=== PATIENT | female | born 1950 | race Caucasian/White ===

== ENCOUNTER 2019-03-22 12:23 | Emergency (ER) | payer OTHER ==
--- OUTSIDE RECORDS SUMMARY | 2019-03-22 12:26 | XMS REPORT | Clinical Summary ---
:1950 Author Organization [facility] Address [address] [place] [address] Care Team Providers Name Role Phone Juan C Jaimes MD Primary Care Provider Allergies Active Allergy Reactions Severity Noted Date Comments Codeine GI Intolerance 01/24/2016 Vomiting Ixmehbc-Tda-Ci-Acetaminophen GI Intolerance 12/31/2015 Meperidine Other (See Comments) 12/31/2015 Pentazocine Other (See Comments) 01/24/2016 Hallucinations Pentazocine Lactate Other (See Comments) 12/31/2015 Hallucinations Medications Medication Sig Dispensed Refills Start Date End Date Status metoprolol Take 50 mg by 0 Active succinate XL mouth daily. (TOPROL-XL) 100 MG 24 hr tablet apixaban (ELIQUIS) Take 2.5 mg by 0 Active 5 mg tablet mouth 2 (two) times a day. levothyroxine Take 125 mcg 0 Active (SYNTHROID, by mouth LEVOTHROID) 125 MCG daily. tablet montelukast Take 10 mg by 3 06/24/2017 Active (SINGULAIR) 10 mg mouth daily tablet before breakfast. sertraline (ZOLOFT) Take 50 mg by 0 Active 50 MG tablet mouth daily. irbesartan (AVAPRO) Take 150 mg by 0 Active 150 MG tablet mouth daily. furosemide (LASIX) TAKE 2 TABLETS 180 tablet 1 10/23/2018 Active 20 mg tablet BY MOUTH EVERY DAY allopurinol TAKE 1 TABLET 0 12/03/2018 Active (ZYLOPRIM) 100 MG BY MOUTH TWICE tablet A DAY. STOP ULORIC diltiazem CD Take 360 mg by 1 10/12/2018 Active (CardIZEM CD) 360 mouth daily. MG 24 hr capsule flecainide Take 100 mg by 1 09/19/2018 Active (TAMBOCOR) 100 MG mouth 2 (two) tablet times a day. traMADol (ULTRAM) Take 50 mg by 0 11/30/2018 Active 50 mg tablet mouth 3 (three) times a day as needed. fenofibrate TAKE ONE TAB 6 12/17/2018 Active (TRICOR) 145 MG ONCE A DAY tablet pzwkg-1a-hjr-epa-fi Take by mouth 0 Active sh oil 1,000-1,400 daily. mg capsule,delayed release(DR/EC) CALCIUM CITRATE Take 600 mg by 0 Active ORAL mouth 2 (two) times a day. TURMERIC ORAL Take by mouth 0 Active daily. cholecalciferol, Take by mouth 0 Active vitamin D3, 2 (two) times (VITAMIN D3) 5,000 a day. unit tablet APPLE CIDER VINEGAR Take by mouth 0 Active ORAL daily. diltiazem CD Take 360 mg by 0 07/09/2017 Discontinued (CardIZEM CD) 360 mouth daily. 8 MG 24 hr capsule furosemide (LASIX) Take 2 tablets 180 tablet 2 07/15/2017 Discontinued 20 mg tablet (40 mg total) 8 by mouth daily. flecainide Take 1 tablet 60 tablet 3 07/29/2017 Discontinued (TAMBOCOR) 150 MG (150 mg total) 8 tablet by mouth 2 (two) times a day. furosemide (LASIX) Take 2 tablets 180 tablet 1 05/04/2018 Discontinued 20 mg tablet (40 mg total) 9 by mouth daily. flecainide Take 75 mg by 0 Discontinued (TAMBOCOR) 50 MG mouth 2 (two) 8 tablet times a day. traMADol (ULTRAM) Take 0.5 15 tablet 0 06/11/2018 50 mg tablet tablets (25 mg 8 total) by mouth every 6 (six) hours as needed for moderate pain for up to 30 doses. flecainide Take 1 tablet 60 tablet 0 06/11/2018 (TAMBOCOR) 100 MG (100 mg total) 8 tablet by mouth 2 (two) times a day for 30 days. minocycline Take 1 capsule 6 capsule 0 06/11/2018 (MINOCIN,DYNACIN) (100 mg total) 8 100 MG capsule by mouth 2 (two) times a day for 6 doses. promethazine Take 1 tablet 30 tablet 1 02/01/2019 (PHENERGAN) 25 MG (25 mg total) 9 tablet by mouth every 6 (six) hours as needed for nausea or vomiting for up to 30 days. Active Problems Problem Noted Date History of cardiac pacemaker in situ 09/08/2018 Sick sinus syndrome 06/10/2018 SOB (shortness of breath) 05/19/2018 Essential hypertension 05/19/2018 Atrial fibrillation 07/15/2017 Atrial fibrillation, currently in sinus rhythm 12/31/2015 Encounters Date Type Specialty Care Team Description 03/01/2019 Telephone Gastroenterology Lázaro Quinn MD 02/01/2019 Orders Only Gastroenterology Kusum Quinn Steven, MD unspecified type (Primary Dx) 02/01/2019 Telephone Gastroenterology Elizabeth Paris RN 01/13/2019 Telephone Gastroenterology Jelena Ocamop MA 01/05/2019 Surgery Gastroenterology Kai EGD WITH BIOPSY, MD Lázaro POLYPECTOMY, CLIPS APPLIED X3 01/05/2019 Anesthesia Event Gastroenterology Maximus Venegas CRNA 01/05/2019 Hospital Encounter Gastroenterology Lázaro Quinn MD 12/21/2018 Telephone Gastroenterology Elizabeth Paris RN 12/14/2018 Telephone Gastroenterology Jelena Ocampo MA 12/11/2018 Telephone Gastroenterology Lázaro Quinn MD 12/08/2018 Office Visit Gastroenterology Gómez Quinn iron MD Lázaro deficiency anemia (Primary Dx) 10/23/2018 Refill Cardiology Naima Moreno Med Jonoill MD Fidelina 09/08/2018 Office Visit Cardiology Naima Moreno Atrial fibrillation, unspecified type (HCC) (Primary Dx); MD Fidelina History of cardiac pacemaker in situ 06/10/2018 Anesthesia Event Procedural Cardiology Jam Guevara CRNA 06/10/2018 Surgery Procedural Cardiology Shae Borden Pacemaker insertion MD Bell new or replacement [53274 (CPT)] 06/10/2018 - Hospital Encounter Cardiology Shae Borden Sick sinus syndrome 06/11/2018 MD Bell (HCC) 05/19/2018 Office Visit Cardiology Naima Moreno Paroxysmal atrial fibrillation (HCC) (Primary Dx); MD Fidelina SOB (shortness of breath); Essential hypertension; Cardiomyopathy, unspecified type (HCC) 05/04/2018 Refill Cardiology Saul Rivera MA after 03/21/2018 Family History Medical History Relation Name Comments No Known Problems Father Cancer Mother No Known Problems Sister Relation Name Status Comments Father Mother Sister Social History Tobacco Use Types Packs/Day Years Used Date Never Smoker Smokeless Tobacco: Never Used Tobacco Cessation: Counseling Given: No Alcohol Use Drinks/Week oz/Week Comments Yes minimal Sex Assigned at Date Recorded Not on file Job Start Date Occupation Industry Not on file Not on file Not on file Travel History Travel Start Travel End No recent travel history available. Last Filed Vital Signs Vital Sign Reading Time Taken Blood Pressure 152/68 01/05/2019 8:08 AM CDT Pulse 60 01/05/2019 8:08 AM CDT Temperature 36.3 C (97.3 F) 01/05/2019 8:08 AM CDT Respiratory Rate 16 01/05/2019 8:08 AM CDT Oxygen Saturation 95% 01/05/2019 8:08 AM CDT Inhaled Oxygen Concentration - - Weight 105 kg (230 lb 14.4 oz) 01/05/2019 6:22 AM CDT Height 160 cm (5' 3") 01/05/2019 6:22 AM CDT Body Mass Index 40.9 01/05/2019 6:22 AM CDT Plan of Treatment Date Type Specialty Care Team Description 03/23/2019 Office Visit Gastroenterology Lázaro Quinn MD [address] [place], [place] [id number] 09/07/2019 Office Visit Cardiology Naima Moreno MD [address] [facility] [address] [place], [place] [id number] Health Maintenance Due Date Last Done Comments BREAST CANCER SCREENING 1999 SHINGLES VACCINES (#1) 1999 65+ PNEUMOCOCCAL VACCINE (1 of 2 - PCV13) 2014 INFLUENZA VACCINE 03/11/2019 COLONOSCOPY SCREENING 01/06/2020 01/05/2019 Implants Implanted Type Area Air Commodore Device Shelf Model / Identifier Expiration Serial / Date Lot Accolade Mri Pacemaker - [id number] - [id number] Cardiac N/A: BOSTON [id number] / Implanted: Qty: 1 on 06/10/2018 by Shae Borden Jr., MD Pacemaker N/A [employer]- CRM [id number] / Generators [id number] Ingevity Mri Pacing Lead 45cm - [id number] Cardiac Pacing N/A: BOSTON 7740 45 / Implanted: 06/10/2018 (Quantity not on file) Leads or N/A [employer]- CRM [id number] / Electrodes or [id number] Accessories 52cm [facility] M[facility] Active Fixation Pacing Lead - [id number] Cardiac Pacing N/A : BOSTON 05/20/2020 7741 / Implanted: 06/10/2018 (Quantity not on file) Leads or N/A [employer] CRM [id number] / Electrodes or [id number] Accessories Clip Resolution 360 Mr Cndtl 235cm 2.8mm 11mm Opening - [id number] Surgical N /A: [facility] ENDOSCOPY [id number] / Implanted: 01/05/2019 (Quantity not on file) Implants; N/A / Expanders; Extenders; Surgical Wires Clip Resolution 360 Mr Cndtl 235cm 2.8mm 11mm Opening - [id number] Surgical N /A: [facility] ENDOSCOPY [id number] / Implanted: 01/05/2019 (Quantity not on file) Implants; N/A / Expanders; Extenders; Surgical Wires Clip Resolution 360 Mr Cndtl 235cm 2.8mm 11mm Opening - [id number] Surgical N /A: [facility] ENDOSCOPY [id number] / Implanted: 01/05/2019 (Quantity not on file) Implants; N/A / Expanders; Extenders; Surgical Wires Procedures Procedure Name Priority Date/Time Associated Comments Diagnosis SURGICAL PATHOLOGY REQUEST Routine 01/05/2019 Results for 9:14 AM CDT this procedure are in the results section. POC GLUCOSE Routine 01/05/2019 Results for 7:43 AM CDT this procedure are in the results section. COLONOSCOPY 01/05/2019 Iron deficiency 7:00 AM CDT anemia, unspecified Rectal bleeding ESOPHAGOGASTRODUODENOSCOPY 01/05/2019 Iron deficiency (EGD) 7:00 AM CDT anemia, unspecified Rectal bleeding POC GLUCOSE Routine 01/05/2019 Results for 6:55 AM CDT this procedure are in the results section. ECHOCARDIOGRAM 2D COMPLETE W Routine 08/24/2018 Paroxysmal atrial Results for MMODE SPECTRAL COLOR DOPPLER 2:49 PM APPLICATION TESTER fibrillation this procedure (93841) (HCC) are in the Cardiomyopathy, results unspecified type section. (HCC) XR CHEST 1 VW PORTABLE Routine 06/10/2018 Results for 3:33 PM CDT this procedure are in the results section. POC GLUCOSE Routine 06/10/2018 Results for 3:19 PM CDT this procedure are in the results section. ECG 12-LEAD STAT 06/10/2018 Results for 2:49 PM CDT this procedure are in the results section. EP PACEMAKER INSERTION NEW OR Routine 06/10/2018 Sick sinus Results for REPLACEMENT 2:28 PM CDT syndrome (HCC) this procedure are in the results section. TYPE AND SCREEN STAT 06/10/2018 Results for 12:08 PM CDT this procedure are in the results section. ECG 12-LEAD STAT 06/10/2018 Results for 10:57 AM CDT this procedure are in the results section. after 03/21/2018 Results Surgical pathology request (01/05/2019 9:14 AM CDT) [facility] DEPARTMENT OF PATHOLOGY AND GENOMIC MEDICINE Surgical pathology See link below [facility] DEPARTMENT OF report for PDF Lab PATHOLOGY AND Report GENOMIC MEDICINE Result status This is Final [facility] DEPARTMENT OF Report for PATHOLOGY AND [id number] GENOMIC MEDICINE Specimen Performing Organization Address City/[facility]/Zipcode Phone Number [facility] DEPARTMENT OF PATHOLOGY AND [address] [place] [id number] GENOMIC MEDICINE POC glucose (01/05/2019 7:43 AM CDT)Only the most recent of3 resultswithin the time period is included. POC glucose 148 (H) 65 - 99 mg/dL [facility] Comment: [facility] Notified RN Meter ID: [id number] Sewer Bricklayer: Jose E Forbes Specimen Performing Organization Address City/State/Zipcode Phone Number [facility] DEPARTMENT OF PATHOLOGY AND [address] [place] [address] GENOMIC MEDIC[address] [address] Echocardiogram complete w contrast and 3D if needed (08/24/2018 2:49 PM APPLICATION TESTER) Specimen Narrative Performed At [facility] Echocardiography Report Pat.Name:Isael JOLLEY.ID:[id number] .Date: 08/24/2018 Refer.MD:NAIMA MORENO MD Exam Time: 2:14:00 PMStudy Type:Routine Echo Height:63inWeight: 226lb BSA: 2.04 m2 DOBAge:1950,68Y Sex: FEMALEBP:135/97 HR:61 bpm Sonogrphr: PADILLA Mackenzie FASE Pat. Stat.:OutpatientRoom:[place] Study Status:Final Echo Event ID:[id number] Order ID:[id number] Reason for Study:Atrial fibrillation History / Clinical:Atrial Fibrillation, Diabetes, Dizziness, Hypertension, Obesity, Ventricular Fibrilation Procedures:2D Echo, Colorflow Doppler Race:C FINDINGS: LV: LV size is upper limits of normal. There is mild concentric LVhypertrophy. LV EF is normal. Overall wall motion is normal.Estimated EF is 55-59%. RV: RV size is normal. A pacemaker wire is seen in the RV. RV systolicfunction is normal. LA: LA volume is mild to moderately enlarged. RA: RA volume is normal. A catheter or pacemaker wire is seen. AO: Aortic root diameter is normal. LUIS: No pericardial effusion. AV: Aortic valve sclerosis. MV: No structural MV abnormalities noted. PV: No structural PV abnormalities noted. TV: No structural TV abnormalities noted. A trace of tricuspid regurgitation Kellogg: LV relaxation is impaired. LV filling pressure is elevated. Other:Insufficient TR jet to estimate PA systolic pressure. MEASUREMENTS: 2D Parasternal [place] LVOT 1.8 cmLA Ds5.2 cm LVIDd5.3 cmIndex2.6 cm/m Ao An1.8 cm LVIDs4.1 cmAo Rtd 2.9 cm Index1.4 cm/m LV%fs 23.9 % LV Otbc083 g(87-129) IVSd 0.9 cmLVM Index 80.4 g/m2 LVPWd0.8 cmRWT0.3 LA Sng Plane LA Area 22.9 cm2(8.8-23.4) LA Vol72.2 ml Index35.4 ml/m LA LngAx 6.2 cm Signed 08/25/2018 10:03 AM Rebekah Alvarez M.D. Procedure Note Interface, Radiology Results In - 08/25/2018 10:04 AM APPLICATION TESTER [facility] Echocardiography Report Pat.Name: CARL JOLLEY.ID: [id number] .Date: 08/24/2018 Refer.MD: NAIMA MORENO MD Exam Time: 2:14:00 PM Study Type:Routine Echo Height: 63in Weight: 226lb BSA: 2.04 m2 Age: 9 1950,68Y Sex: FEMALE BP: 135/97 HR: 61 bpm Sonogrphr: PADILLA Mackenzie FASE Pat. Stat.:Outpatient Room: [place] Study Status:Final Echo Event ID:[id number] Order ID: [id number] Reason for Study:Atrial fibrillation History / Clinical:Atrial Fibrillation, Diabetes, Dizziness, Hypertension, Obesity, Ventricular Fibrilation Procedures:2D Echo, Colorflow Doppler Race: C FINDINGS: LV: LV size is upper limits of normal. There is mild concentric LV hypertrophy. LV EF is normal. Overall wall motion is normal. Estimated EF is 55-59%. RV: RV size is normal. A pacemaker wire is seen in the RV. RV systolic function is normal. LA: LA volume is mild to moderately enlarged. RA: RA volume is normal. A catheter or pacemaker wire is seen. AO: Aortic root diameter is normal. LUIS: No pericardial effusion. AV: Aortic valve sclerosis. MV: No structural MV abnormalities noted. PV: No structural PV abnormalities noted. TV: No structural TV abnormalities noted. A trace of tricuspid regurgitation Kellogg: LV relaxation is impaired. LV filling pressure is elevated. Other: Insufficient TR jet to estimate PA systolic pressure. MEASUREMENTS: 2D Parasternal [place] LVOT 1.8 cm LA Ds 5.2 cm LVIDd 5.3 cm Index 2.6 cm/m Ao An 1.8 cm LVIDs 4.1 cm Ao Rtd 2.9 cm Index 1.4 cm/m LV%fs 23.9 % LV Mass 164 g (87-129) IVSd 0.9 cm LVM Index 80.4 g/m2 LVPWd 0.8 cm RWT 0.3 LA Sng Plane LA Area 22.9 cm2 (8.8-23.4) LA Vol 72.2 ml Index 35.4 ml/m LA LngAx 6.2 cm Signed 08/25/2018 10:03 AM Rebekah Alvarez M.D. Performing Organization Address [place]/[facility] Phone Number [facility] [address] [place] [address] XR Chest 1 Vw Portable (06/10/2018 3:33 PM CDT) Specimen Narrative Performed At EXAMINATION:XR CHEST 1 VW PORTABLE RADIANT CLINICAL HISTORY:Pneumothorax COMPARISON:To a previous examination from 12/30/2015 IMPRESSION: Transvenous pacemaker is present. The cardiomediastinal silhouette is prominent. The lungs are hyperinflated, and clear. [facility]-[id number] Procedure Note Interface, Radiology Results Incoming - 06/10/2018 3:39 PM CDT EXAMINATION: XR CHEST 1 VW PORTABLE CLINICAL HISTORY: Pneumothorax COMPARISON: To a previous examination from 12/30/2015 IMPRESSION: Transvenous pacemaker is present. The cardiomediastinal silhouette is prominent. The lungs are hyperinflated, and clear. [facility]-[id number] Performing Organization Address City/State/Zipcode Phone Number [facility] [address] [place] [address] ECG 12 lead (06/10/2018 2:49 PM CDT)Only the most recent of2 resultswithin the time period is included. Ventricular rate 67 [facility] Atrial rate 67 [facility] MO interval 224 [facility] QRSD interval 128 [facility] QT interval 456 [facility] QTC interval 481 [facility] P axis 1 39 [facility] QRS axis 1 -59 [facility] T wave axis 28 [facility] EKG impression Sinus rhythm with 1st degree AV block-Left axis deviation- Nonspecific intraventricular block-Anterolateral infarct , age undetermined- Abnormal ECG-In automated comparison with ECG of 10-JUN-2018 10:57,-Anterior infarct is now present-Anterolateral HM MUSE infarct is now present-No significant change was found- Specimen Performing Organization Address City/[facility]/Zipcode Phone Number [facility] [address] [place] [address] Cv electrophysiology procedure (06/10/2018 2:28 PM CDT) Specimen Narrative Performed At TITLE: BENNIE BROOKS Dual-chamber pacemaker placement. PREOPERATIVE DIAGNOSES: 1.Sick sinus syndrome. 2.Paroxysmal atrial fibrillation. 3.Symptomatic bradycardia. 4.Remote syncope. POSTOPERATIVE DIAGNOSES: 1.Sick sinus syndrome. 2.Paroxysmal atrial fibrillation. 3.Symptomatic bradycardia. 4.Remote syncope. PROCEDURES PERFORMED: 1.Monitored anesthesia care. 2.Left upper extremity venogram. 3.Dual-chamber pacemaker placement. BRIEF HISTORY OF PRESENT ILLNESS AND CLINICAL BACKGROUND: This is a 68-year-old woman with the aforementioned medical problems.She was recently admitted to the hospital in [facility], near [place], where she had symptomatic bradycardia.Her physicians there called me and we discussed the likelihood that she may need a pacemaker or modification of her antiarrhythmic medications.Unfortunately, modifying her medications would lead to more episodes of atrial fibrillation. We discussed the pros and cons of an ablation of her AFib versus a permanent pacemaker and up titration of her medications, which is the option that she selected, so she comes today for insertion of a dual-chamber pacemaker. PROCEDURE TYPE: Informed consent was obtained.Intravenous antibiotics were infused appropriately.The chest was prepped and draped in the usual sterile fashion and local anesthesia was achieved with 1% lidocaine.An upper extremity venogram was performed to identify the location of the axillary and subclavian vein and access was achieved.Guide wires were introduced under fluoroscopic guidance and advanced into the inferior vena cava. Using a sharp knife, cautery, and blunt dissection, a pocket was formed below the plane of the pectoralis fascia.The RV and atrial leads were placed into the venous system using standard technique.The RV pace/sense lead was placed into the RV apex and tested.After the thresholds were deemed adequate the lead was anchored in place.Maximum output pacing was performed to ensure that there was no diaphragmatic stimulation, and none was seen.The lead was anchored in place using 0-Ethibond sutures around the lead collar. A bipolar screw-in lead was affixed into the right atrium.Sensing and pacing thresholds were then performed.After they were found to be adequate, maximum output pacing was performed to ensure that there was no diaphragmatic stimulation, and none was seen.The lead was anchored in place using 0-Ethibond sutures around the lead collar. Fluoroscopy was repeated to ensure proper lead placement.The pacemaker pocket was visually, manually, and radiographically inspected to ensure there were no gauze or sponges in the pocket.It was then washed using antibiotic solution. Gloves and drapes were changed as needed.The pacemaker generator packet was then opened and was attached to the leads and the set screws were tightened. Each lead was gently tugged upon to ensure it was affixed within the header. After proper pacemaker function was confirmed, the lead slack and pacemaker were placed in the pocket.The pacemaker was anchored to the pectoralis muscle using 0-Ethibond suture.The skin incision was then closed in layers using 0-Vicryl sutures.Final skin closure was achieved with stainless steel rebecca and skin adhesive. COMPLICATIONS: None. FINDINGS: 1.Estimated blood loss 5 mL. 2.The pacemaker is a [employer] Accolade, model L311, serial #[id number]. 3.The atrial lead is a [employer] TrueViewevity MRI, model 7740, serial #[id number].Measured P-wave 3.8 mV, pacing threshold 1.2 V, current 2.3 mA, impedance 532 ohms. 4.The ventricular lead is an TrueViewevity MRI, model 7741, serial #[id number], measured R-wave 18.5 mV, pacing threshold 0.8 V, current 1.0 mA, impedance 864 ohms. CONCLUSIONS: Successful dual-chamber pacemaker placement. RECOMMENDATIONS: 1.Admit to observation on telemetry. 2.IV antibiotics. 3.Home tomorrow. 4.Uptitrate flecainide. Performing Organization Address City/State/Zipcode Phone Number [facility] [address] [place] [address] Type and screen (06/10/2018 12:08 PM CDT) ABO grouping B [facility] DEPARTMENT OF PATHOLOGY AND GENOMIC MEDICINE Rh type POS [facility] DEPARTMENT OF PATHOLOGY AND GENOMIC MEDICINE Antibody screen (gel) NEG [facility] DEPARTMENT OF PATHOLOGY AND GENOMIC MEDICINE Specimen Blood Performing Organization Address City/[facility] Phone Number [facility] DEPARTMENT OF PATHOLOGY AND [address] [place] [address] GENOMIC MEDICINE after 03/21/2018 Insurance Payer Benefit Plan / Subscriber ID Effective Dates Phone Address Type Group MEDICARE MEDICARE PART A AND xxxxxxxxxxx 2014-[employer] [place], [place] Medicare B t AETNA AETNA [facility] xxxxxxxxx 2000-[facility] Indemnity INDEMNITY t (Home) [place] [address] Advance Directives Patient has advance care planning documents on file. For more information, please contact:Sergio Siu[address] [place] [address]
--- NOTE | 2019-03-22 14:20 | EKG ---
Test Date: 2019-03-22 Test Time: 14:11:13 Slash Trimmer: EMILIE MEASUREMENT RESULTS: Intervals: Rate: 81 NV: 214 QRSD: 142 QT: 408 QTc: 473 [place]: P: 54 NV: 214 QRS: -65 T: 67 INTERPRETIVE STATEMENTS: Sinus rhythm with 1st degree AV block Left axis deviation Left bundle branch block Abnormal ECG Compared to ECG 06/09/2017 06:21:28 First degree AV block now present Left bundle-branch block now present Atrial premature complex(es) no longer present Myocardial infarct finding no longer present Electronically Signed On 03-22-19 14:19:36 CDT by Naman Fernandes
[2019-03-22] MEDS ORDERED: PROMETHAZINE 25 MG/ML VIAL ONE (14:22)
[2019-03-22] MEDS ORDERED: NA CHLORIDE 0.9% 500 ML ONE (14:22)
[2019-03-22 14:31] LABS: Absolute Lymphocytes (CBC) 1.5 K/uL (0.7-4.9); Basophils % 0.7 % (0-1.3); Hematocrit 35.6 % (36.0-45.0); Lymphocytes % 16.1 % (15.3-44.8); MPV 8.2 fL (7.6-11.3); Protime INR 1.09; RBC Red Blood Cell Count 4.05 M/uL (3.86-4.86)
[2019-03-22 14:49] LABS: ALT/SGPT 29 U/L (12-78); AST/SGOT 18 U/L (15-37); Albumin 3.5 g/dL (3.4-5.0); Alkaline Phosphatase 63 U/L (45-117); BUN Blood Urea Nitrogen 14 mg/dL (7-18); Bicarbonate 27 mmol/L (21-32); Bilirubin Direct 0.1 mg/dL (0-0.2); Bilirubin Total 0.4 mg/dL (0.2-1.0); Glucose Level 124 mg/dL (74-106); Magnesium 2.1 mg/dL (1.8-2.4); NT PRO-BNP 3189 pg/mL (<125); Potassium 3.7 mmol/L (3.5-5.1); Sodium Level 140 mmol/L (136-145); Troponin (Emerg Dept Use Only) < 0.02 ng/mL (0.0-0.045)
--- NOTE | 2019-03-22 15:35 | RAD REPORT ---
EXAM DESCRIPTION: RAD - Chest Single View - 03/22/2019 3:00 pm CLINICAL HISTORY: Abdominal pain COMPARISON: May 2017 TECHNIQUE: AP portable chest image was obtained 1452 hours . FINDINGS: Lung volumes are low. No acute lung parenchymal process. Interstitial pattern is prominent but stable. Pacemaker has been placed since prior imaging. Heart and vasculature are normal. No delfina urable pleural effusion and no pneumothorax. No acute bony abnormality seen. No acute aortic findings suspected. IMPRESSION: No acute cardiopulmonary process. Chronic interstitial pattern matches comparison.
--- NOTE | 2019-03-22 15:43 | RAD REPORT ---
EXAM DESCRIPTION: CT - Abdomen Pelvis W Contrast - 03/22/2019 3:26 pm CLINICAL HISTORY: Abdominal pain, right lower quadrant pain, prior cholecystectomy and hernia repair COMPARISON: CT study January 2012 TECHNIQUE: Biphasic, helical CT imaging of the abdomen and pelvis was performed following 100 ml non -ionic IV contrast. No oral contrast administered. All CT scans are performed using dose optimization technique as appropriate and may include automated exposure control or mA/KV adjustment according to patient size. FINDINGS: No acute lung base findings. Old rib fractures are noted. No pleural effusion. No pericard ial effusion. The 17 millimeter rounded masses seen along the right lateral margin of the distal esop hagus. Postsurgical changes are noted from hiatal hernia repair. This small round mass may be the seq uela of the prior surgical procedure. Likelihood of an aggressive mass is felt to be low. Fatty infiltration of the liver is present. No focal liver lesions seen. The splenomegaly is present at 15-16 cm. No focal splenic abnormality. Pancreas is unremarkable. Cholecystectomy clips are presen t with no biliary tree dilatation. Renal function is symmetric. There is incomplete rotation of the right kidney is a normal variant. No hydronephrosis, mass or other acute renal parenchymal process. No pyelonephritis or acute parenchyma l process. No obstructing or nonobstructing calculi. No adrenal abnormalities. No stomach or small bowel abnormality. The appendix is normal. From cecum through descending colon no acute colon process. Sigmoid colon is tortuous and redundant. There is an 8 centimeter long segment of distal sigmoid colon which is positioned in the lower right abdomen showing circumferential wall t hickening. Inflammatory stranding is present in the surrounding fatty tissues. No adjacent free air or pneumatosis. No abscess or extravasation of bowel content seen. The involved colon abuts the right ovary which is otherwise unremarkable. Uterus and left ovary show no suspicious findings. No suspicious bony findings. IMPRESSION: Acute diverticulitis or possibly nonspecific colitis involving the distal sigmoid colon. Patient has sigmoid colon that is tortuous and redundant placing the involved portion of colon in t he lower right abdomen. No abscess, perforation or other findings of surgically emergent nature. Follow-up colonoscopy after medical management could be performed to exclude low likelihood of malignancy. Fatty infiltration of the liver. Hiatal hernia surgical changes are present. A 17 millimeter round mass right lateral margin of the di stal esophagus may be sequela of the prior surgery. Long-term significance is doubtful.
[2019-03-22] MEDS ORDERED: METRONIDAZOLE 500mg IVPB 500 MG/100 ML BAG IV ONE (16:03)
[2019-03-22] MEDS ORDERED: CIPROFLOXACIN 400mg IV 400 MG/200 ML BAG IV ONE (16:03)
--- NOTE | 2019-03-22 16:09 | ER ---
Nurse's Notes [facility] Name: Shelley Jolley Age: 68 yrs Sex: Female : 1950 Arrival Date: 03/22/2019 Time: 12:25 Bed 28 Private MD: Bud Jaimes B Diagnosis: Lower abdominal pain, unspecified;Diverticulitis of large intestine without perforation or abscess without bleeding Presentation: 03/22 12:38 Presenting complaint: Patient states: yesterday afternoon, i started having lower abd hj pain and then last night it got bad, today, its lower R Q pain right at the top of my thigh; reports nausea;. Transition of care: patient was not received from another setting of care. Onset of symptoms was March 22, 2019. Risk Assessment: Do you want to hurt yourself or someone else? Patient reports no desire to harm self or others. Initial Sepsis Screen: Does the patient meet any 2 criteria? No. Patient's initial sepsis screen is negative. Does the patient have a suspected source of infection? No. Patient's initial sepsis screen is negative. Care prior to arrival: None. 12:38 Method Of Arrival: Ambulatory 12:38 Acuity: KENNETH 3 hj Historical: - Allergies: 12:40 Codeine; hj 12:40 Demerol; hj 12:40 Talwin (Anaphylaxis); hj - PMHx: 12:40 Atrial Fib; Diabetes - NIDDM; Hypertension; Hypothyroidism; Reactive airway disease; hj - PSHx: 12:40 bilateral knees; right ankle; right wrist; Cholecystectomy; ; Hernia repair; hj - Immunization history:: Adult Immunizations up to date. - Social history:: Smoking status: unknown. - Ebola Screening: : No symptoms or risks identified at this time. Screenin:30 Abuse screen: Denies threats or abuse. Denies injuries from another. Nutritional rv screening: No deficits noted. Tuberculosis screening: No symptoms or risk factors identified. Fall Risk None identified. Assessment: 14:32 General: Appears in no apparent distress. comfortable, Behavior is calm, cooperative. rv Pain: Complains of pain in right low back and right lower quadrant. Neuro: Level of Consciousness is awake, alert, obeys commands, Oriented to person, place, time, situation. Cardiovascular: Patient's skin is warm and dry. Respiratory: Airway is patent. GI: No signs and/or symptoms were reported involving the gastrointestinal system. : No signs and/or symptoms were reported regarding the genitourinary system. EENT: No signs and/or symptoms were reported regarding the EENT system. Derm: Skin is intact. Musculoskeletal: No signs and/or symptoms reported regarding the musculoskeletal system. 16:49 Reassessment: Patient appears in no apparent distress at this time. Patient and/or rv family updated on plan of care and expected duration. Pain level reassessed. Patient is alert, oriented x 3, equal unlabored respirations, skin warm/dry/pink. Vital Signs: 12:41 BP 155 / 70; Pulse 87; Resp 18; Temp 98.6(TE); Pulse Ox 95% on R/A; Weight 101.15 kg; hj Height 5 ft. 3 in. (160.02 cm); Pain 5/10; 14:00 BP 139 / 61; Pulse 79; Resp 15; Pulse Ox 96% ; rv 15:00 BP 142 / 62; Pulse 83; Resp 15; Pulse Ox 96% on R/A; rv 17:12 BP 138 / 66; Pulse 81; Resp 15; Temp 98.3; Pulse Ox 96% on R/A; rv 12:41 Body Mass Index 39.50 (101.15 kg, 160.02 cm) ED Course: 12:25 Patient arrived in ED. rg4 12:27 Bud Jaimes MD is Private Physician. rg4 12:36 Anai Baez FNP-C is [facility]. snw 12:36 Brenden Crooks MD is Attending Physician. snw 12:39 Triage completed. hj 12:41 Arm band placed on left wrist. hj 13:37 Radiology exam delayed due to lab results not completed at this time. (BUN/Creatinine) jg6 IV insertion attempt and/or patient not having appropriate IV at this time. 13:56 Sumeet Walker, JAYJAY is Primary Nurse. rv 14:14 Initial lab(s) drawn, by de, sent to lab. Inserted saline lock: 20 gauge in left iw antecubital area, using aseptic technique. Blood collected. 14:18 EKG done, by technical solutions engineer. reviewed by Anai SULTANA. sm3 14:30 Patient has correct armband on for positive identification. Bed in low position. Call rv light in reach. Side rails up X 1. campus monitor on. Pulse ox on. NIBP on. 14:31 Radiology exam delayed due to lab results not completed at this time. (BUN/Creatinine). nj 14:58 X-ray completed. Portable x-ray completed in exam room. Patient tolerated procedure mh1 well. 15:00 XRAY Chest (1 view) In Process Unspecified. EDMS 15:[address] 2 15:30 CT Abd/Pelvis - IV Contrast Only In Process Unspecified. EDMS 17:12 No provider procedures requiring assistance completed. IV discontinued, intact, rv bleeding controlled, No redness/swelling at site. Pressure dressing applied. Administered Medications: 02:25 Drug: Phenergan 6.25 mg Route: IVP; Site: left antecubital; rv 17:11 Follow up: Response: No adverse reaction rv 14:31 Drug: NS 0.9% 1000 ml Route: IV; Rate: 75 ml/hr; Site: left antecubital; rv 17:11 Follow up: IV Status: Completed infusion rv 16:04 Drug: Ciprofloxacin 400 mg Volume: 200 ml; Route: IVPB; Infused Over: 60 mins; Site: rv left antecubital; 17:10 Follow up: IV Status: Completed infusion; IV Intake: 200ml rv 16:04 Drug: Flagyl 500 mg Volume: 100 ml; Route: IVPB; Rate: 200 ml/hr; Infused Over: 30 rv mins; Site: left antecubital; 17:10 Follow up: IV Status: Completed infusion; IV Intake: 100ml rv 16:04 Drug: NS 0.9% 500 ml Route: IV; Rate: bolus; Site: left antecubital; rv 17:10 Follow up: IV Status: Completed infusion; IV Intake: 500ml rv Intake: 17:10 IV: 500ml; Total: 500ml. rv 17:10 IV: 100ml; Total: 600ml. rv 17:10 IV: 200ml; Total: 800ml. rv Outcome: 16:07 Discharge ordered by MD. shelley 17:12 Discharged to home ambulatory. rv 17:12 Condition: good 17:12 Discharge instructions given to patient, Instructed on discharge instructions, follow up and referral plans. medication usage, Demonstrated understanding of instructions, follow-up care, medications, Prescriptions given X 3. 17:13 Patient left the ED. rv Signatures: Dispatcher [employer] EDMS Anai Baez, CASE HARDENER-C CASE HARDENER-Csnw Brenda Cr 1 Aleyda Locke, RN RN Yuri Lundy RN Carley Cheng 4 [place] Victoria 2 Elizabeth Corado 3 Sumeet Walker RN RN rv Garcia, Jessica j6 Corrections: (The following items were deleted from the chart) 12:42 12:41 Pulse 87bpm; Resp 18bpm; Pulse Ox 95% RA; Temp 98.6F Temporal; 101.15 kg; Height hj 5 ft. 3 in.; BMI: 39.5; Pain 5/10; hj
--- NOTE | 2019-03-22 16:09 | EDPHYS ---
Physician Documentation [facility] Name: Shelley Jolley Age: 68 yrs Sex: Female : 1950 Arrival Date: 03/22/2019 Time: 12:25 Bed 28 Private MD: Bud Jaimes B ED Physician Brenden Crooks HPI: 03/22 14:21 This 68 yrs old Female presents to ER via Ambulatory with complaints of Flank snw Pain. 14:21 The patient complains of pain in the right low back. Location: right upper thigh. snw Onset: The symptoms/episode began/occurred suddenly, 2 day(s) ago, and became worse today, and became persistent. Associated signs and symptoms: Pertinent positives: nausea, Pertinent negatives: fever, vomiting. Severity of pain: At its worst the pain was moderate severe. The patient has experienced similar episodes in the past, hx of liliya, hernia repair, and c/s. The patient has not recently seen a physician, appt with GI tomorrow in [place]. Historical: - Allergies: 12:40 Codeine; hj 12:40 Demerol; hj 12:40 Talwin (Anaphylaxis); hj - PMHx: 12:40 Atrial Fib; Diabetes - NIDDM; Hypertension; Hypothyroidism; Reactive airway disease; hj - PSHx: 12:40 bilateral knees; right ankle; right wrist; Cholecystectomy; ; Hernia repair; hj - Immunization history:: Adult Immunizations up to date. - Social history:: Smoking status: unknown. - Ebola Screening: : No symptoms or risks identified at this time. ROS: 14:19 Constitutional: Negative for fever, chills, and weight loss, Eyes: Negative for injury, snw pain, redness, and discharge, ENT: Negative for injury, pain, and discharge, Neck: Negative for injury, pain, and swelling, Cardiovascular: Negative for chest pain, palpitations, and edema, Respiratory: Negative for shortness of breath, cough, wheezing, and pleuritic chest pain, Back: Negative for injury and pain, : Negative for injury, bleeding, discharge, and swelling, MS/Extremity: Negative for injury and deformity, Skin: Negative for injury, rash, and discoloration, Neuro: Negative for headache, weakness, numbness, tingling, and seizure, Psych: Negative for depression, anxiety, suicide ideation, homicidal ideation, and hallucinations. 14:19 Abdomen/GI: Positive for abdominal pain, nausea, abdominal distension, of the right lower quadrant. Exam: 14:19 Constitutional: This is a well developed, well nourished patient who is awake, alert, snw and in no acute distress. Head/Face: Normocephalic, atraumatic. Eyes: Pupils equal round and reactive to light, extra-ocular motions intact. Lids and lashes normal. Conjunctiva and sclera are non-icteric and not injected. Cornea within normal limits. Periorbital areas with no swelling, redness, or edema. 14:19 Neck: Trachea midline, no thyromegaly or masses palpated, and no cervical lymphadenopathy. Supple, full range of motion without nuchal rigidity, or vertebral point tenderness. No Meningismus. Chest/axilla: Normal chest wall appearance and motion. Nontender with no deformity. No lesions are appreciated. Cardiovascular: Regular rate and rhythm with a normal S1 and S2. No gallops, murmurs, or rubs. Normal PMI, no JVD. No pulse deficits. Respiratory: Lungs have equal breath sounds bilaterally, clear to auscultation and percussion. No rales, rhonchi or wheezes noted. No increased work of breathing, no retractions or nasal flaring. 14:19 Back: No spinal tenderness. No costovertebral tenderness. Full range of motion. Skin: Warm, dry with normal turgor. Normal color with no rashes, no lesions, and no evidence of cellulitis. MS/ Extremity: Pulses equal, no cyanosis. Neurovascular intact. Full, normal range of motion. Neuro: Awake and alert, GCS 15, oriented to person, place, time, and situation. Cranial nerves II-XII grossly intact. Motor strength 5/5 in all extremities. Sensory grossly intact. Cerebellar exam normal. Normal gait. 14:19 ENT: Mouth: Oral mucosa: dry. 14:19 Abdomen/GI: Inspection: distension, that is moderate, Bowel sounds: hyperactive, in the right lower quadrant, Palpation: severe abdominal tenderness, in the right lower quadrant. Vital Signs: 12:41 BP 155 / 70; Pulse 87; Resp 18; Temp 98.6(TE); Pulse Ox 95% on R/A; Weight 101.15 kg; hj Height 5 ft. 3 in. (160.02 cm); Pain 5/10; 14:00 BP 139 / 61; Pulse 79; Resp 15; Pulse Ox 96% ; rv 15:00 BP 142 / 62; Pulse 83; Resp 15; Pulse Ox 96% on R/A; rv 17:12 BP 138 / 66; Pulse 81; Resp 15; Temp 98.3; Pulse Ox 96% on R/A; rv 12:41 Body Mass Index 39.50 (101.15 kg, 160.02 cm) hj MDM: 13:39 Patient medically screened. snw 16:03 Data reviewed: vital signs, nurses notes, lab test result(s), EKG, radiologic studies. snw Data interpreted: Pulse oximetry: on room air is 95 %. Interpretation: acceptable. 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 Awaiting: abx infusion. Special discussion: Based on the patient's Hx, exam, and Dx evaluation, there is no indication for emergent surgery or inpatient Tx. It is understood by the patient/guardian that if the Sx's persist or worsen they need to return immediately for re-evaluation. Based on the history and exam findings, there is no indication for further emergent testing or inpatient evaluation. I discussed with the patient/guardian the need to see the campground cleaning attendant for further evaluation of the symptoms. ED course: pt with GI appt tomorrow in [place]. Discussed po outpatient antibiotics and follow up versus admission to hospital. Pt opts to go home after initial IV abx with po outpatient. Pt agrees to return to ED immediately for worsening s/s. 03/22 13:33 Order name: Urine Culture snw 03/22 13:33 Order name: Urine Microscopic Only; Complete Time: 16:31 snw 03/22 13:33 Order name: Basic Metabolic Panel; Complete Time: 14:56 snw 03/22 13:33 Order name: CBC with Diff; Complete Time: 14:35 snw 03/22 13:33 Order name: LFT's; Complete Time: 14:56 snw 03/22 13:33 Order name: Magnesium; Complete Time: 14:56 snw 03/22 13:33 Order name: NT PRO-BNP; Complete Time: 14:56 snw 03/22 13:33 Order name: PT-INR; Complete Time: 14:41 snw 03/22 13:33 Order name: Troponin (emerg Dept Use Only); Complete Time: 14:56 snw 03/22 13:33 Order name: XRAY Chest (1 view); Complete Time: 15:41 snw 03/22 13:33 Order name: CT Abd/Pelvis - IV Contrast Only; Complete Time: 15:46 snw 03/22 16:11 Order name: Urine Dipstick--Ancillary (enter results); Complete Time: 16:26 bd 03/22 13:33 Order name: EKG; Complete Time: 13:37 snw 03/22 13:33 Order name: Cardiac monitoring; Complete Time: 14:27 snw 03/22 13:33 Order name: EKG - Nurse/Tech; Complete Time: 14:15 snw 03/22 13:33 Order name: IV Saline Lock; Complete Time: 14:15 snw 03/22 13:33 Order name: Labs collected and sent; Complete Time: 14:15 snw 03/22 13:33 Order name: O2 Per Protocol; Complete Time: 14:15 snw 03/22 13:33 Order name: O2 Sat Monitoring; Complete Time: 14:15 snw Administered Medications: 02:25 Drug: Phenergan 6.25 mg Route: IVP; Site: left antecubital; rv 17:11 Follow up: Response: No adverse reaction rv 14:31 Drug: NS 0.9% 1000 ml Route: IV; Rate: 75 ml/hr; Site: left antecubital; rv 17:11 Follow up: IV Status: Completed infusion rv 16:04 Drug: Ciprofloxacin 400 mg Volume: 200 ml; Route: IVPB; Infused Over: 60 mins; Site: rv left antecubital; 17:10 Follow up: IV Status: Completed infusion; IV Intake: 200ml rv 16:04 Drug: Flagyl 500 mg Volume: 100 ml; Route: IVPB; Rate: 200 ml/hr; Infused Over: 30 rv mins; Site: left antecubital; 17:10 Follow up: IV Status: Completed infusion; IV Intake: 100ml rv 16:04 Drug: NS 0.9% 500 ml Route: IV; Rate: bolus; Site: left antecubital; rv 17:10 Follow up: IV Status: Completed infusion; IV Intake: 500ml rv Disposition: 03/23 07:23 Co-signature as Attending Physician, Brenden Crooks MD. rn Disposition: 03/22/19 16:07 Discharged to Home. Impression: Lower abdominal pain, unspecified, Diverticulitis of large intestine without perforation or abscess without bleeding. - Condition is Stable. - Discharge Instructions: Abdominal Pain, Adult, Fat and Cholesterol Restricted Diet, Diverticulitis, Hypertension. - Prescriptions for Flagyl 500 mg Oral Tablet - take 1 tablet by ORAL route every 12 hours for 7 days; 14 tablet. Cipro 500 mg Oral Tablet - take 1 tablet by ORAL route every 12 hours for 7 days; 14 tablet. promethazine 25 mg Oral Tablet - take 1 tablet by ORAL route every 6 hours As needed; 20 tablet. - Medication Reconciliation Form, Thank You Letter, Antibiotic Education, Prescription Opioid Use form. - Follow up: Private Physician; When: as scheduled tomorrow; Reason: Recheck today's complaints, Continuance of care, Re-evaluation by your physician. Signatures: Dispatcher [employer] EDMA Anai Baez, MANAGER OF CASE-C MANAGER OF CASE-Csnw Brenden Crooks MD MD rn Joaquin, Henry, RN RN hj Vicente, Ronaldo, RN RN rv Corrections: (The following items were deleted from the chart) 03/22 17:13 16:07 03/22/2019 16:07 Discharged to Home. Impression: Lower abdominal pain, rv unspecified; Diverticulitis of large intestine without perforation or abscess without bleeding. Condition is Stable. Forms are Medication Reconciliation Form, Thank You Letter, Antibiotic Education, Prescription Opioid Use. Follow up: Private Physician; When: as scheduled tomorrow; Reason: Recheck today's complaints, Continuance of care, Re-evaluation by your physician. snw
[2019-03-22 16:17] LABS: Urine Blood NEGATIVE (NEG); Urine Glucose NEGATIVE (NEG); Urine Protein TRACE (NEG); Urine pH 8.5 (5.0-7.0)
[2019-03-22 16:28] LABS: Urine Bacteria >50 /HPF (<20); Urine Culture Reflex Order NOT NEEDED; Urine RBC NONE SEEN /HPF (NONE SEEN)
[2019-03-22 21:42] VITALS: O2SAT 96
[2019-03-22 21:45] VITALS: BP 138/66; TEMP 98.3
== END 2019-03-22 17:13 | disposition home or self-care (01) ==
LOC: ER 12:23
DX: K57.32 Diverticulitis of large intestine without perforation or abscess without bleeding (principal); I48.91 Unspecified atrial fibrillation; E11.9 Type 2 diabetes mellitus without complications; I10 Essential (primary) hypertension; E03.9 Hypothyroidism, unspecified; J45.909 Unspecified asthma, uncomplicated; Z88.5 Allergy status to narcotic agent
CPT/HCPCS: 96365; 96361; 96368; 93005; 87088; 85025; 87086; 80048; 36415; 83735; 85610; 80076; 84484; 83880; 74177; 71045; 96375; 99285; Q9967; J2550; J0744; 81003; 81015; 87077; 87186

== ENCOUNTER 2023-02-03 21:19 | Emergency (ER) | payer OTHER ==
--- OUTSIDE RECORDS SUMMARY | 2023-02-03 21:27 | XMS REPORT | Continuity of Care Document ---
:1950 Author Organization [facility] t Address [address] [place] [address] Care Team Providers Name Role Phone Bud Jaimes MD Primary Care Physician Tiffanie ABDI, Eliezer Kitchen Attending Clinician Elizabeth Paris RN Attending Clinician Unavailable Shun Okeefe MD Attending Clinician Ramo Angelo MD Attending Clinician MARTHA_Jodie_Adriano_ Attending Clinician Unavailable Sharlene Yu MA Attending Clinician Unavailable Kimberlyn Ramirez MD Attending Clinician [phone] Bettye Corrales NP Attending Clinician Jimmie Page CPhT Attending Clinician Unavailable Jelena Ocampo MA Attending Clinician Unavailable Erick ABDI, Juno Robledo Attending Clinician Alvarado Syed Attending Clinician Unavailable Danyel Mclaughlin Attending Clinician [phone] Alvarado Syed Attending Clinician [phone] Adriano Feliciano Attending Clinician [phone] Fabiana Jackson MA Attending Clinician Unavailable Wenceslao Bustamante MA Attending Clinician Unavailable Gertrude Reed MA Attending Clinician Unavailable Cynthia Lyn MA Attending Clinician Unavailable MD RAMO ANGELO Attending Clinician Unavailable LESLY JAMISON Attending Clinician Unavailable JUAN MIGUEL CHOUDHARY Attending Clinician Unavailable Kingsley Morrissey Attending Clinician Unavailable MARTHA_Jodie_Adriano_ Admitting Clinician Unavailable RAMO ANGELO Admitting Clinician Unavailable Alvarado Syed Admitting Clinician Unavailable MD RAMO ANGELO Admitting Clinician Unavailable JUAN MIGUEL CHOUDHARY Admitting Clinician Unavailable Physician, No Primary or Family Admitting Clinician UnavailLESLY Bowser Admitting Clinician Unavailable Payers Payer Name Policy Type Policy Number Effective Date Expiration Date S vishal [employer]ET[employer] (MEDICARE [id number] 2022 REPLACEMENT PPO) 00:00:00 [place]IC[place]: [id number] 2014 Open English 00:00:00 [employer]ETNA (INDEMNITY) [id number] 2002 00:00:00 Problems Condition Condition Condition Status Onset Resolution Last Treating Co mments Source Name Details Category Date Date Treatment Clinician Date Pain of Pain of Problem Active Erika right Right 1-19 Orth[facility] shoulder Shoulder 00:00: dic joint Joint 00 Sports [facility] e Pain of Pain of Problem Active Erika left Left 1-19 [facility] shoulder Shoulder 00:00: dic joint Joint 00 Sports Medic[facility] e Adhesive Adhesive Problem Active Azale a capsulitis Capsulitis 1-19 Or [facility]ope of left of Left 00:00: dic shoulder Shoulder 00 Sports Medicin e Abdominal Abdominal Disease Active 2021-08 [facility] bloating bloating 08-12 st 00:00: Hospita 00 l Ulnar Ulnar Problem Active Erika neuropathy Neuropathy 8-25 Or [facility]ope of left of Left 00:00: dic arm Arm 00 Sports Medicin e Carpal Carpal Problem Active Erika tunnel Tunnel 8-25 Orthope syndrome Syndrome 00:00: dic of left of Left 00 Sports wrist Wrist Medicin e Ulnar Ulnar Problem Active Erika nerve Nerve 8-25 Orthope entrapment Entrapment 00:00: di c at elbow at Elbow 00 Sports Medicin e Hypercalce Hypercalce Problem Active 2020-08 A garett radhika radhika 2-17 Orthope 00:00: dic 00 Sports Medicin e Vitamin D Vitamin D Problem Active Aza mali deficiency Deficiency 6-18 Or thope 00:00: dic 00 Sports Medicin e Tendon Tendon Problem Active Erika triggering Triggering 2-18 Or thope 00:00: dic 00 Sports Medicin e Trigger Trigger Problem Active Erika finger of Finger of 2-18 Orth ope left hand Left Hand 00:00: dic 00 Sports Medicin e Iron Iron Disease Active 2018-08 Overview: Method i deficiency deficiency 1-[address] anemia anemia 00:00: g of this Hospita 00 note l might be different from the original. 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 8-20 Or [facility]ope knee joint Knee Joint 00:00: di c 00 Sports Medicin e Knee pain Knee Pain Problem Active Aza mali 8-20 Orthope 00:00: dic 00 Sports Medicin e Contusion Contusion Problem Active Aza mali of right of Right 7-16 Orthop e hand Hand 00:00: dic 00 Sports Medicin e Inflammato Inflammato Problem Active A zalea ry ry 6-28 Orthope polyarthro Polyarthro 00:00: di c sonido sonido 00 Sports Medicin e Mixed Mixed Problem Active Erika hyperlipid Hyperlipid 5-09 Or thope emia emia 00:00: dic 00 Sports Medicin e Gouty Gouty Problem Active Erika arthropath Arthropath 2-12 Or thope y y 00:00: dic 00 Sports Medicin e Peroneal Peroneal Problem Active Azale a tendinitis Tendinitis 2-12 Or thope 00:00: dic 00 Sports Medicin e History of History of Disease Active M ethodi cardiac cardiac 1-29 st pacemaker pacemaker 00:00: Hosp luis in situ in situ 00 l Sick sinus Sick sinus Disease Active 2017-08 M ethodi syndrome syndrome 0-31 st 00:00: Hospita 00 l SOB SOB Disease Active 2017-08 [facility] (shortness (shortness 0-09 st of breath) of breath) 00:00: Ho spita 00 l Essential Essential Disease Active 2017-08 Met hodi hypertensi hypertensi 0-09 st on on 00:00: Hospita 00 l Closed Closed Problem Active Erika fracture Fracture 9-25 Orthop e of fifth of Fifth 00:00: dic metatarsal Metatarsal 00 Sp orts bone of Bone of Medicin right foot Right Foot e Atrial Atrial Disease Active 2016-08 Methodi fibrillati fibrillati 2-05 st on on 00:00: Hospita 00 l 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 0-12 Orthope syndrome Syndrome 00:00: dic 00 Sports Medicin e Hypothyroi Hypothyroi Problem Active A garett dism dism 05-01 Orthope 00:00: dic 00 Sports Medicin e Type 2 Type 2 Problem Active Erika diabetes Diabetes 05-01 Orthop e mellitus Mellitus 00:00: dic 00 Sports Medicin e Gout Gout Problem Active Erika 05-01 Orthope 00:00: dic 00 Sports Medicin e Mixed Mixed Problem Active Erika anxiety Anxiety 05-01 Orthope and and 00:00: dic depressive Depressive 00 Sp orts disorder Disorder Medici n e Hypertensi Hypertensi Problem Active A garett ve ve 05-01 Orthope disorder Disorder 00:00: dic 00 Sports Medicin e Atrial Atrial Problem Active Erika fibrillati Fibrillati 05-01 Or thope on on 00:00: dic 00 Sports Medicin e Allergic Allergic Problem Active Azale a rhinitis Rhinitis 05-01 Orthop e 00:00: dic 00 Sports Medicin e Kidney Kidney Problem Active Erika stone Stone 05-01 Orthope 00:00: dic 00 Sports Medicin e Osteoporos Osteoporos Problem Active A garett is is 05-01 Orthope 00:00: dic 00 Sports Medicin e Pathologic Pathologic Problem Active Rosalio bajwa al al 05-01 Orthope fracture - Fracture - 00:00: di c lower leg Lower Leg 00 Spor ts Medicin e Accessory Accessory Problem Active Jerod samson navicular Navicular 05-01 Orth ope bone of Bone of 00:00: dic foot Foot 00 Sports Medicin e Fracture Fracture Problem Active Ingrid call of cuboid of Cuboid 05-01 Orth ope 00:00: dic 00 Sports Medicin e Postmenopa Postmenopa Problem Active A garett usal state usal State 05-01 Or thope 00:00: dic 00 Sports Medicin e Open Open Problem Active Erika reduction Reduction 05-01 Orth ope of of 00:00: dic fracture Fracture 00 Sports with with Medicin internal Internal e fixation Fixation Carpal Carpal Problem Active Erika tunnel Tunnel 02-25 Orthope syndrome Syndrome 00:00: dic 00 Sports Medicin e Closed Closed Problem Active Erika extraartic Extraartic 02-25 Or ope ular ular 00:00: dic fracture Fracture 00 Sports of distal of Distal Medi tracy radius Radius e Metatarsal Metatarsal Problem Active A garett bone Bone 02-25 Orthope fracture Fracture 00:00: dic 00 Sports Medicin e Tibialis Tibialis Problem Active Ingrid call posterior Posterior 7 Orth ope tendinitis Tendinitis 00:00: di c 00 Sports Medicin e Sprain of Sprain of Problem Active Jerod mali foot Foot 7 Orthope 00:00: dic 00 Sports Medicin e Sprain of Sprain of Problem Active Jerod mali ligament Ligament 7 Orthop e of of 00:00: dic tarsometat Tarsometat 00 Sp orts arsal arsal Medicin joint Joint e Atrial Atrial Disease Recurre Methodi fibrillati fibrillati nce 12-30, on, 00:00: Hospita currently currently 00 l in sinus in sinus rhythm rhythm Acquired Acquired Problem Active Ingrid a trigger Trigger 11-06 Orthope finger Finger 00:00: dic 00 Sports Medicin e 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 replacemen Replacemen 11-06 Or thope t t 00:00: dic 00 Sports Medicin e Asthma Asthma Problem Active Erika 3 Orthope 00:00: dic 00 Sports Medicin e Allergies, Adverse Reactions, Alerts Allergy Allergy Status Severity Reaction(s) Onset Inactive Treating Comm ents Source Name Type Date Date Clinician Gabapent Propensi Active Altered confusion Me thodi in ty to Mental 09-08 st adverse Status 00:00: Hospita reaction 00 l s to drug Rivaroxa Propensi Active GI Bleeding M ethodi ban ty to 08-16 st adverse 00:00: Hospita reaction 00 l s to drug codeine DA Active RI 2018-0 [facility] 8 Clear 00:00: Matt 00 [facility] pentazoc DA Active RI [facility] ine 8 Clear 00:00: Matt [facility] meperidi DA Active SV [facility] ne 8 Clear 00:00: Matt 00 [facility] rivaroxa DA Active MO [facility] ban 04-08 Clear 00:00: Matt 00 [facility] codeine DA Active RI VOMITING 2018- [facility] 8 [place] 00:00: Orthope 00 dic Hospita l pentazoc DA Active RI HALLUCINATIO HC A ine NS 04-08 [place] 00:00: Orthope 00 dic Hospita l meperidi DA Active SV ANAPHYLAXIS [facility] ne 04-08 [place] 00:00: Orthope 00 dic Hospita l rivaroxa DA Active MO MASSIVE [facility] ban BLEEDING 04-08 [place] 00:00: Orthope 00 dic Hospita l codeine DA Active RI 0 [facility] 7 Clear 00:00: Matt 00 [facility] pentazoc DA Active RI 0 HCA ine 7 Clear 00:00: Matt 00 [facility] meperidi DA Active SV 0 [facility] ne 7 Clear 00:00: Matt 00 [facility] rivaroxa DA Active MO [facility] ban 7 Clear 00:00: Matt 00 [facility] Codeine Propensi Active GI Vomiting Metho di ty to Intolerance 01-23 st adverse 00:00: Hospita reaction 00 l s to drug Pentazoc Propensi Active Other (See Hallucina Methodi ine ty to Comments) 6-[address] adverse 00:00: Hospita reaction 00 l s to drug Codeine- Propensi Active GI Method i Cpm-Pe-A ty to Intolerance 12-30 st cetamino adverse 00:00: Hospita phen reaction 00 l s to drug Meperidi Propensi Active Other (See Me thodi ne ty to Comments) 12-30 st adverse 00:00: Hospita reaction 00 l s to drug Pentazoc Propensi Active Other (See Hallucina Methodi ine ty to Comments) 12-[address] Lactate adverse 00:00: Hospita reaction 00 l s to drug Talwin Allergy Active Hallucinatio Aza mali to ns 11-06 Orthope substanc 00:00: dic e 00 Sports Medicin e Codeine Allergy Active Vomiting Erika to 329 Orthope substanc 00:00: dic e 00 Sports Medicin e Demerol Allergy Active Anaphylaxis Aza mali to 3 Orthope substanc 00:00: dic e 00 Sports Medicin e Family History Family Member Diagnosis Comments Start Date Stop Date Source Natural mother Cancer [facility] Natural father No Known Problems Met [facility] Natural sister No Known Problems Met [facility] Social History Social Habit Start Date Stop Date Quantity Comments Source Gender identity [facility] Alcohol intake 2022-12-24 2022-12-24 Ex-drinker [facility] 00:00:00 00:00:00 (finding) Hospital History of Social 2022-12-24 2022-12-[address] function 00:00:00 00:00:00 Hospital Tobacco use and 2022-06-12 2022-06-12 Smokeless [facility] exposure 00:00:00 00:00:00 tobacco non-user Hospital Alcohol Comment 2019-01-05 2019-01-05 minimal [facility] 00:00:00 00:00:00 Hospital Sex Ass[birth year] At [birth year] [facility] 00:00:00 00:00:00 Hospital Smoking Status Start Date Stop Date Source Never smoked tobacco [facility] Medications Ordered Filled Start Stop Current Ordering Indication Dosage Frequency Signature Comments Components Source Medication Medication Date Date Medication? Clinician (SIG) Name Name furosemide Yes TAKE 1 Metho di (LASIX) 20 6-[address] mg tablet 00:00: MOUTH Hospita 00 TWICE A l DAY hydroCHLORO 0 2023- Yes 25mg QD Take 1 Met hodi thiazide 5-25 05-25 tablet (25 st (HYDRODIURI 00:00: 04:59 mg total) Hospita L) 25 MG 00 :00 by mouth l tablet daily. cholecalcif 2022- No cholecalci [facility] [place], 5-16 05-[address] vitamin D3, 11:40: 00:00 (vitamin H ospita 1,250 mcg 48 :00 D3) 1,250 l (50,000 mcg unit) (50,000 capsule unit) capsule TAKE 1 CAPSULE BY MOUTH ONCE A MONTH famotidine Yes famotidine M ethodi (PEPCID) 20 5-[address] MG tablet 10:46: tablet Hospit a 48 TAKE 1 l TABLET BY MOUTH TWICE A DAY levalbutero Yes levalbuter Methodi l (XOPENEX 5-[address] HFA) 45 10:46: mcg/actuat Hosp luis mcg/actuati 48 ion l on inhaler aerosol inhaler INHALE 2 PUFFS BY MOUTH EVERY 4 HOURS NEEDED metoprolol Yes 150mg QD Take 1.5 Me thodi succinate 5-[address] XL 10:46: (150 mg Hospita (TOPROL-XL) 48 total) by l 100 MG 24 mouth hr tablet daily. apixaban Yes 5mg Q.5D Take 1 [facility] (ELIQUIS) 5 5-16 tablet (5 st mg tablet 10:46: mg total) Hos nba 48 by mouth 2 l (two) times a day. levothyroxi Yes 125ug QD Take 1 Met hodi ne 5-[address] (SYNTHROID, 10:46: (125 mcg Ho spita LEVOTHROID) 48 total) by l 125 MCG mouth tablet daily. sertraline 0 Yes 50mg QD Take 1 Metho di (ZOLOFT) 50 5-16 tablet (50 st MG tablet 10:46: mg total) Hos nba 48 by mouth l daily. cholestyram 0 2022- No 1{packe Q.5D Take 1 Methodi ine 4-11 -16 t} packet by st (Questran) 00:00: 00:00 mouth 2 Hos nba 4 gram 00 :00 (two) l packet times a day with meals. dexlansopra Yes TAKE 1 Meth ella zole -[address] (DEXILANT) 00:00: MOUTH Hospit a 60 mg 00 EVERY DAY l capsule riFAXimin 2021-08- No 550mg Q.[id number] Take 1 [facility] (Xifaxan) 03 -18 [id number] tablet s t 550 mg 00:00: 05:59 3D (550 mg Hospita tablet 00 :00 total) by l mouth 3 (three) times a day for 14 days. dexlansopra Yes TAKE 1 Meth ella zole -[address] (DEXILANT) 00:00: MOUTH Hospit a 60 mg 00 DAILY FOR l capsule 30 DAYS. fenofibrate 2022- No Metho di micronized 05-02-16 st (LOFIBRA) 00:00: 00:00 Hospita 134 MG 00 :00 l capsule dexlansopra 2022- No TAKE 1 Met hodi zole -01 09-[address] (DEXILANT) 00:00: 00:00 MOUTH Hospi ta 60 mg 00 :00 DAILY FOR l capsule 30 DAYS. furosemide 2022- No 20mg Q.5D Take 1 Meth ella (LASIX) 20 02-14-08 tablet (20 st mg tablet 00:00: 04:59 mg total) Ho spita 00 :00 by mouth 2 l (two) times a day. furosemide 2022- No 20mg Q.5D Take 1 Meth ella (LASIX) 20 02-14 06-12 tablet (20 st mg tablet 00:00: 00:00 mg total) Ho spita 00 :00 by mouth 2 l (two) times a day. furosemide Yes On M, W, F M ethodi (LASIX) 20 7-06 st mg tablet 00:00: Hospita 00 l furosemide 2021- No On M, W, F Methodi (LASIX) 20 7-06 11-09 st mg tablet 00:00: 00:00 Hospita 00 :00 l furosemide 2021-0 2021- No On M, W, F Methodi (LASIX) 02-04 st mg tablet 00:00: 00:00 Hospita 00 :00 l furosemide 2021-0 2021- No On M, W, F Methodi (LASIX) 20 02-04 st mg tablet 00:00: 00:00 Hospita 00 :00 l metoprolol Yes 150mg QD Take 150 Me thodi succinate 6-[address] XL 14:33: mouth Hospita (TOPROL-XL) 01 daily. l 100 MG 24 hr tablet apixaban 0 Yes 5mg Q.5D Take 5 mg Meth ella (ELIQUIS) 5 6-[address] mg tablet 14:33: (two) Hospita 01 times a l day. levothyroxi Yes 125ug QD Take 125 M ethodi ne 6-[address] (SYNTHROID, 14:33: mouth Hospi ta LEVOTHROID) 01 daily. l 125 MCG tablet sertraline Yes 50mg QD Take 50 mg M ethodi (ZOLOFT) 50 6-[address] MG tablet 14:33: daily. Hospit a l dexlansopra 2021-2021- No 60mg QD Take 1 Met hodi zole 6-15 - capsule st (Dexilant) 00:00: 00:00 (60 mg Hosp luis 60 mg 00 :00 total) by l capsule mouth daily for 30 days. dexlansopra 2021-0 2021- No 60mg QD Take 1 Met hodi zole 6-15 - capsule st (Dexilant) 00:00: 00:00 (60 mg Hosp luis 60 mg 00 :00 total) by l capsule mouth daily for 30 days. omeprazole 0 Yes TAKE 1 Metho di (PriLOSEC) 5-[address] 40 MG 00:00: MOUTH Hospita capsule 00 DAILY FOR l 30 DAYS. omeprazole 2021-0 2021- No TAKE 1 Meth ella (PriLOSEC) 5-12 - CAPSULE BY st 40 MG 00:00: 00:00 MOUTH Hospita capsule 00 :00 DAILY FOR l 30 DAYS. famotidine No 20mg Q.5D Take 20 mg Methodi (PEPCID) 20 10-17 by mouth 2 s t MG tablet 00:00: 00:00 (two) Hospit a 00 :00 times a l day. nitrofurant No 100mg Q.5D Take 1 Me thodi oin, 08-[address] macrocrysta 00:00: 05:59 (100 mg Ho spita l-monohydra 00 :00 total) by l te, mouth 2 (Macrobid) (two) 100 MG times a capsule day for 3 days. furosemide No On M, W, F Methodi (LASIX) 20 08-15- st mg tablet 00:00: 00:00 Hospita 00 :00 l furosemide 2021- No On M, W, F Methodi (LASIX) 20 08-15 st mg tablet 00:00: 00:00 Hospita 00 :00 l irbesartan 2020-08 No 150mg QD Take 1 Met hodi (AVAPRO) 09-[address] 150 MG 00:00: 05:59 (150 mg Hospita tablet 00 :00 total) by l mouth daily for 30 days. irbesartan 2020-08 No 300mg QD Take 2 Met hodi (AVAPRO) 08-[address] 150 MG 00:00: 00:00 (300 mg Hospita tablet 00 :00 total) by l mouth daily for 30 days. irbesartan 2020-08 No 150mg QD Take 150 M ethodi (AVAPRO) 08-[address] 150 MG 18:23: 00:00 mouth Hospita tablet 11 :00 daily. l irbesartan 2020-08 No TAKE 1 Meth ella (AVAPRO) 08-[address] 300 MG 00:00: 00:00 MOUTH Hospita tablet 00 :00 EVERY DAY l omeprazole 2020-08 No 40mg QD Take 1 Meth ella (PriLOSEC) -[address] 40 MG 00:00: 00:00 (40 mg Hospita capsule 00 :00 total) by l mouth daily for 30 days. cholestyram 2021- No TAKE 1 Met hodi ine 8-10 05-[address] (QUESTRAN) 00:00: 00:00 MOUTH 2 Hos nba 4 gram 00 :00 (TWO) l packet TIMES A DAY. furosemide 2021- No TAKE 2 Meth ella (LASIX) 20 3-11 01-[address] mg tablet 00:00: 00:00 MOUTH Hospit a 00 :00 EVERY DAY l nateglinide Yes 60mg Q.[id number] Take 60 mg [facility] (STARLIX) 6-10 [id number] by mouth 3 [address] 60 MG 00:00: 3D (three) Hospita tablet 00 times a l day before meals. nateglinide 2021- No 60mg Q.[id number] Take 60 mg [facility] (STARLIX) 6-05 21- [id number] by mouth 3 [address] 60 MG 00:00: 00:00 3D (three) Hospita tablet 00 :00 times a l day before meals. TRADJENTA 5 Yes 5mg QD Take 1 Meth ella mg tablet 8-22 tablet (5 st 00:00: mg total) Hospita 00 by mouth l daily. TRADJENTA 5 Yes 5mg QD Take 5 mg M ethodi mg tablet 8-[address] 00:00: daily. Hospita 00 l fenofibrate Yes TAKE ONE Me thodi (TRICOR) 5-[address] 145 MG 00:00: DAY Hospita tablet 00 l fenofibrate Yes TAKE ONE Me thodi (TRICOR) 5-[address] 145 MG 00:00: DAY Hospita tablet 00 l allopurinol Yes TAKE 1 Meth ella (ZYLOPRIM) 4-[address] 100 MG 00:00: MOUTH Hospita tablet 00 TWICE A l DAY. STOP ULORIC allopurinol Yes TAKE 1 Meth ella (ZYLOPRIM) 4-[address] 100 MG 00:00: MOUTH Hospita tablet 00 TWICE A l DAY. STOP ULORIC diltiazem Yes 360mg QD Take 1 Metho di CD 3-[address] (CardIZEM 00:00: (360 mg Hospi ta CD) 360 MG 00 total) by l 24 hr mouth capsule daily. diltiazem 2019-0 Yes 360mg QD Take 360 Met hodi CD 3-[address] (CardIZEM 00:00: mouth Hospita CD) 360 MG 00 daily. l 24 hr capsule flecainide 2019-0 Yes 100mg Q.5D Take 1 Meth ella (TAMBOCOR) 2-[address] 100 MG 00:00: (100 mg Hospita tablet 00 total) by l mouth 2 (two) times a day. flecainide 2019-0 Yes 100mg Q.5D Take 100 Me thodi (TAMBOCOR) 2-[address] 100 MG 00:00: mouth 2 Hospita tablet 00 (two) l times a day. Prolia 60 Prolia 60 2017-08 No Prolia 60 Erika mg/mL mg/mL 0-12 mg/mL Orthope subcutaneou subcutaneou 00:00: subcutaneo dic s syringe s syringe 00 us syringe Sports 12/23/17 12/23/17 12/23/17 Medici n e Prolia 60 Prolia 60 2017-08 No Prolia 60 Erika mg/mL mg/mL 0-12 mg/mL Orthope subcutaneou subcutaneou 00:00: subcutaneo dic s syringe s syringe 00 us syringe Sports 12/23/17 12/23/17 12/23/17 Medici n e Prolia 60 Prolia 60 2017-08 No Prolia 60 Erika mg/mL mg/mL 0-12 mg/mL Orthope subcutaneou subcutaneou 00:00: subcutaneo dic s syringe s syringe 00 us syringe Sports 12/23/17 12/23/17 12/23/17 Medici n e Prolia 60 Prolia 60 2017-08 No Prolia 60 Erika mg/mL mg/mL 0-12 mg/mL Orthope subcutaneou subcutaneou 00:00: subcutaneo dic s syringe s syringe 00 us syringe Sports 12/23/17 12/23/17 12/23/17 Medici n e Prolia 60 Prolia 60 2017-08 No Prolia 60 Erika mg/mL mg/mL 0-12 mg/mL Orthope subcutaneou subcutaneou 00:00: subcutaneo dic s syringe s syringe 00 us syringe Sports 12/23/17 12/23/17 12/23/17 Medici n e Prolia 60 Prolia 60 2017-08 No Prolia 60 Erika mg/mL mg/mL 0-12 mg/mL Orthope subcutaneou subcutaneou 00:00: subcutaneo dic s syringe s syringe 00 us syringe Sports 12/23/17 12/23/17 12/23/17 Medici n e Prolia 60 Prolia 60 2017-08 No Prolia 60 Erika mg/mL mg/mL 0-12 mg/mL Orthope subcutaneou subcutaneou 00:00: subcutaneo dic s syringe s syringe 00 us syringe Sports 12/23/17 12/23/17 12/23/17 Medici n e Prolia 60 Prolia 60 2017-08 No Prolia 60 Erika mg/mL mg/mL 0-12 mg/mL Orthope subcutaneou subcutaneou 00:00: subcutaneo dic s syringe s syringe 00 us syringe Sports 12/23/17 12/23/17 12/23/17 Medici n e montelukast 2016-08 Yes 10mg QD Take 1 Meth ella (SINGULAIR) 1-14 tablet (10 st 10 mg 00:00: mg total) Hospita tablet 00 by mouth l daily before breakfast. montelukast 2016-08 Yes 10mg QD Take 10 mg Methodi (SINGULAIR) 1-[address] 10 mg 00:00: daily Hospita tablet 00 before l breakfast. Calcium Calcium No Calcium Azal ea Citrate + Citrate + 9-21 Citrate + Orthope tablet 1 tablet 1 00:00: tablet 1 d ic tablet once tablet once 00 tablet Sports a day a day once a day Medicin e Calcium Calcium No Calcium Azal ea Citrate + Citrate + 9-21 Citrate + Orthope tablet 1 tablet 1 00:00: tablet 1 d ic tablet once tablet once 00 tablet Sports a day a day once a day Medicin e Calcium Calcium No Calcium Azal ea Citrate + Citrate + 9-21 Citrate + Orthope tablet 1 tablet 1 00:00: tablet 1 d ic tablet once tablet once 00 tablet Sports a day a day once a day Medicin e Calcium Calcium No Calcium Azal ea Citrate + Citrate + 9-21 Citrate + Orthope tablet 1 tablet 1 00:00: tablet 1 d ic tablet once tablet once 00 tablet Sports a day a day once a day Medicin e Calcium Calcium No Calcium Azal ea Citrate + Citrate + 9-21 Citrate + Orthope tablet 1 tablet 1 00:00: tablet 1 d ic tablet once tablet once 00 tablet Sports a day a day once a day Medicin e Calcium Calcium No Calcium Azal ea Citrate + Citrate + 9-21 Citrate + Orthope tablet 1 tablet 1 00:00: tablet 1 d ic tablet once tablet once 00 tablet Sports a day a day once a day Medicin e Calcium Calcium No Calcium Azal ea Citrate + Citrate + 9-21 Citrate + Orthope tablet 1 tablet 1 00:00: tablet 1 d ic tablet once tablet once 00 tablet Sports a day a day once a day Medicin e Calcium Calcium No Calcium Azal ea Citrate + Citrate + 9-21 Citrate + Orthope tablet 1 tablet 1 00:00: tablet 1 d ic tablet once tablet once 00 tablet Sports a day a day once a day Medicin e irbesartan irbesartan No irbesartan Erika 300 mg 300 mg 3-29 300 mg Orthope tablet 1 tablet 1 00:00: tablet 1 d ic tablet once tablet once 00 tablet Sports a day a day once a day Medicin e irbesartan irbesartan No irbesartan Erika 300 mg 300 mg 3-29 300 mg Orthope tablet 1 tablet 1 00:00: tablet 1 d ic tablet once tablet once 00 tablet Sports a day a day once a day Medicin e cholecalcif cholecalcif No cholecalci Erika camden(vitami camden(vitami 3-29 ferol(grabiel Orthope n D3) 125 n D3) 125 00:00: min D3) dic mcg (5,000 mcg (5,000 00 125 mcg Sports unit) unit) (5,000 Medicin disintegrat disintegrat unit) e ing tablet ing tablet disintegra Take 1 Take 1 ting tablet by tablet by tablet mouth twice mouth twice Take 1 a day a day tablet by mouth twice a day irbesartan irbesartan No irbesartan Erika 300 mg 300 mg 3-29 300 mg Orthope tablet 1 tablet 1 00:00: tablet 1 d ic tablet once tablet once 00 tablet Sports a day a day once a day Medicin e irbesartan irbesartan No irbesartan Erika 300 mg 300 mg 3-29 300 mg Orthope tablet 1 tablet 1 00:00: tablet 1 d ic tablet once tablet once 00 tablet Sports a day a day once a day Medicin e irbesartan irbesartan No irbesartan Erika 300 mg 300 mg 3-29 300 mg Orthope tablet 1 tablet 1 00:00: tablet 1 d ic tablet once tablet once 00 tablet Sports a day a day once a day Medicin e irbesartan irbesartan No irbesartan Erika 300 mg 300 mg 3-29 300 mg Orthope tablet 1 tablet 1 00:00: tablet 1 d ic tablet once tablet once 00 tablet Sports a day a day once a day Medicin e irbesartan irbesartan No irbesartan Erika 300 mg 300 mg 3-29 300 mg [facility] tablet 1 tablet 1 00:00: tablet 1 d ic tablet once tablet once 00 tablet Sports a day a day once a day Medicin e irbesartan irbesartan No irbesartan Erika 300 mg 300 mg 3-29 300 mg [facility] tablet 1 tablet 1 00:00: tablet 1 d ic tablet once tablet once 00 tablet Sports a day a day once a day Medicin e Accu-Chek Accu-Chek No Accu-Chek Erika Cinthya Plus Cinthya Plus Cinthya Plus [facility] test strips test strips test d ic USE 1 STRIP USE 1 STRIP strips USE Sports TO CHECK TO CHECK 1 STRIP TO M edicin GLUCOSE GLUCOSE CHECK e GLUCOSE allopurinol allopurinol No allopurino Erika l [facility] dic Sports Medicin e allopurinol allopurinol No allopurino Erika 100 mg 100 mg l 100 mg [facility] tablet TAKE tablet TAKE tablet dic 1 TABLET BY 1 TABLET BY TAKE 1 Sports MOUTH TWICE MOUTH TWICE TABLET BY Medicin A DAY A DAY MOUTH e TWICE A DAY dexlansopra dexlansopra No dexlansopr Erika zole 60 mg zole 60 mg azole 60 [facility] capsule,bip capsule,bip mg d ic hase hase capsule,bi Sports delayed delayed phase Medicin release release delayed e TAKE 1 TAKE 1 release CAPSULE BY CAPSULE BY TAKE 1 MOUTH EVERY MOUTH EVERY CAPSULE BY DAY DAY MOUTH EVERY DAY diltiazem diltiazem No diltiazem Erika CD 360 mg CD 360 mg CD 360 mg [facility] capsule,ext capsule,ext capsule,ex dic ended ended tended Sports release 24 release 24 release 24 Medicin hr TAKE 1 hr TAKE 1 hr TAKE 1 e CAPSULE BY CAPSULE BY CAPSULE BY MOUTH EVERY MOUTH EVERY MOUTH DAY DAY EVERY DAY Eliquis 5 Eliquis 5 No Eliquis 5 Erika mg tablet mg tablet mg tablet [facility] TAKE 1 TAKE 1 TAKE 1 dic TABLET BY TABLET BY TABLET BY Sports MOUTH TWICE MOUTH TWICE MOUTH Medicin A DAY A DAY TWICE A e DAY fenofibrate fenofibrate No fenofibrat Erika nanocrystal nanocrystal e [facility] lized 145 lized 145 nanocrysta dic mg tablet mg tablet llized 145 Sports TAKE ONE TAKE ONE mg tablet Me dicin TAB ONCE A TAB ONCE A TAKE ONE e DAY DAY TAB ONCE A DAY flecainide flecainide No flecainide Erika 100 mg 100 mg 100 mg [facility] tablet TAKE tablet TAKE tablet dic 1 TABLET BY 1 TABLET BY TAKE 1 Sports MOUTH TWICE MOUTH TWICE TABLET BY Medicin A DAY A DAY MOUTH e TWICE A DAY furosemide furosemide No furosemide Erika 20 mg 20 mg 20 mg [facility] tablet TAKE tablet TAKE tablet dic 1 TABLET BY 1 TABLET BY TAKE 1 Sports MOUTH TWICE MOUTH TWICE TABLET BY Medicin A DAY A DAY MOUTH e TWICE A DAY levothyroxi levothyroxi No levothyrox Erika ne 125 mcg ne 125 mcg ine 125 [facility] tablet TAKE tablet TAKE mcg tablet dic 1 TABLET BY 1 TABLET BY TAKE 1 Sports MOUTH EVERY MOUTH EVERY TABLET BY Medicin DAY IN THE DAY IN THE MOUTH e MORNING ON MORNING ON EVERY DAY EMPTY EMPTY IN THE STOMACH STOMACH MORNING ON EMPTY STOMACH melatonin melatonin No Q1D melatonin Erika 10 mg 10 mg 10 mg [facility] tablet Take tablet Take tablet dic every day every day Take every Sports by oral by oral day by Medicin route. route. oral e route. metoprolol metoprolol No metoprolol Erika succinate succinate succinate [facility] ER 100 mg ER 100 mg ER 100 mg dic tablet,exte tablet,exte tablet,ext Sports nded nded ended Medicin release 24 release 24 release 24 e hr TAKE 1 hr TAKE 1 hr TAKE 1 AND 1/2 AND 1/2 AND 1/2 TABLETS BY TABLETS BY TABLETS BY MOUTH EVERY MOUTH EVERY MOUTH NIGHT NIGHT EVERY NIGHT montelukast montelukast No montelukas Erika 10 mg 10 mg t 10 mg [facility] tablet TAKE tablet TAKE tablet dic 1 TABLET BY 1 TABLET BY TAKE 1 Sports MOUTH EVERY MOUTH EVERY TABLET BY Medicin DAY DAY MOUTH e EVERY DAY nateglinide nateglinide No nateglinid Erika 60 mg 60 mg e 60 mg [facility] tablet TAKE tablet TAKE tablet dic 1 TABLET 1 TABLET TAKE 1 Sport s BEFORE BEFORE TABLET Medicin HEAVY MEALS HEAVY MEALS BEFORE e UP TO 3 UP TO 3 HEAVY TIMES A TIMES A MEALS UP DAY. DAY. TO 3 TIMES A DAY. sertraline sertraline No sertraline Erika 50 mg 50 mg 50 mg [facility] tablet TAKE tablet TAKE tablet dic 1 TABLET BY 1 TABLET BY TAKE 1 Sports MOUTH EVERY MOUTH EVERY TABLET BY Medicin DAY DAY MOUTH e EVERY DAY Tradjenta 5 Tradjenta 5 No Tradjenta Erika mg tablet mg tablet 5 mg [facility] pe TAKE 1 TAKE 1 tablet dic TABLET BY TABLET BY TAKE 1 Spo rts MOUTH EVERY MOUTH EVERY TABLET BY Medicin DAY DAY MOUTH e EVERY DAY tramadol 50 tramadol 50 No 1 Q6H tramadol Erika mg tablet mg tablet 50 mg [facility] Take 1 Take 1 tablet dic tablet tablet Take 1 Sports every 6 every 6 tablet Medicin hours by hours by every 6 e oral route. oral route. hours by oral route. Vitamin D3 Vitamin D3 No Vitamin D3 Erika 1 tablet 1 tablet 1 tablet [facility] twice a day twice a day twice a dic day Sports Medicin e zinc 50 mg zinc 50 mg No Q1D zinc 50 mg Erika tablet Take tablet Take tablet [facility] every day every day Take every dic by oral by oral day by Sports route. route. oral Medicin route. e Accu-Chek Accu-Chek No Accu-Chek Erika Cinthya Plus Cinthya Plus Cinthya Plus [facility] test strips test strips test d ic USE 1 STRIP USE 1 STRIP strips USE Sports TO CHECK TO CHECK 1 STRIP TO M edicin GLUCOSE GLUCOSE CHECK e GLUCOSE allopurinol allopurinol No allopurino Erika l [facility] dic Sports Medicin e allopurinol allopurinol No allopurino Erika 100 mg 100 mg l 100 mg [facility] tablet TAKE tablet TAKE tablet dic 1 TABLET BY 1 TABLET BY TAKE 1 Sports MOUTH TWICE MOUTH TWICE TABLET BY Medicin A DAY A DAY MOUTH e TWICE A DAY dexlansopra dexlansopra No dexlansopr Erika zole 60 mg zole 60 mg azole 60 [facility] capsule,bip capsule,bip mg d ic hase hase capsule,bi Sports delayed delayed phase Medicin release release delayed e TAKE 1 TAKE 1 release CAPSULE BY CAPSULE BY TAKE 1 MOUTH EVERY MOUTH EVERY CAPSULE BY DAY DAY MOUTH EVERY DAY diltiazem diltiazem No diltiazem Erika CD 360 mg CD 360 mg CD 360 mg [facility] capsule,ext capsule,ext capsule,ex dic ended ended tended Sports release 24 release 24 release 24 Medicin hr TAKE 1 hr TAKE 1 hr TAKE 1 e CAPSULE BY CAPSULE BY CAPSULE BY MOUTH EVERY MOUTH EVERY MOUTH DAY DAY EVERY DAY Eliquis 5 Eliquis 5 No Eliquis 5 Erika mg tablet mg tablet mg tablet [facility] TAKE 1 TAKE 1 TAKE 1 dic TABLET BY TABLET BY TABLET BY Sports MOUTH TWICE MOUTH TWICE MOUTH Medicin A DAY A DAY TWICE A e DAY fenofibrate fenofibrate No fenofibrat Erika nanocrystal nanocrystal e [facility] lized 145 lized 145 nanocrysta dic mg tablet mg tablet llized 145 Sports TAKE ONE TAKE ONE mg tablet Me dicin TAB ONCE A TAB ONCE A TAKE ONE e DAY DAY TAB ONCE A DAY flecainide flecainide No flecainide Erika 100 mg 100 mg 100 mg [facility] tablet TAKE tablet TAKE tablet dic 1 TABLET BY 1 TABLET BY TAKE 1 Sports MOUTH TWICE MOUTH TWICE TABLET BY Medicin A DAY A DAY MOUTH e TWICE A DAY furosemide furosemide No furosemide Erika 20 mg 20 mg 20 mg [facility] tablet TAKE tablet TAKE tablet dic 1 TABLET BY 1 TABLET BY TAKE 1 Sports MOUTH TWICE MOUTH TWICE TABLET BY Medicin A DAY A DAY MOUTH e TWICE A DAY levothyroxi levothyroxi No levothyrox Erika ne 125 mcg ne 125 mcg ine 125 [facility] tablet TAKE tablet TAKE mcg tablet dic 1 TABLET BY 1 TABLET BY TAKE 1 Sports MOUTH EVERY MOUTH EVERY TABLET BY Medicin DAY IN THE DAY IN THE MOUTH e MORNING ON MORNING ON EVERY DAY EMPTY EMPTY IN THE STOMACH STOMACH MORNING ON EMPTY STOMACH melatonin melatonin No Q1D melatonin Erika 10 mg 10 mg 10 mg [facility] tablet Take tablet Take tablet dic every day every day Take every Sports by oral by oral day by Medicin route. route. oral e route. metoprolol metoprolol No metoprolol Erika succinate succinate succinate [facility] ER 100 mg ER 100 mg ER 100 mg dic tablet,exte tablet,exte tablet,ext Sports nded nded ended Medicin release 24 release 24 release 24 e hr TAKE 1 hr TAKE 1 hr TAKE 1 AND 1/2 AND 1/2 AND 1/2 TABLETS BY TABLETS BY TABLETS BY MOUTH EVERY MOUTH EVERY MOUTH NIGHT NIGHT EVERY NIGHT montelukast montelukast No montelukas Erika 10 mg 10 mg t 10 mg [facility] tablet TAKE tablet TAKE tablet dic 1 TABLET BY 1 TABLET BY TAKE 1 Sports MOUTH EVERY MOUTH EVERY TABLET BY Medicin DAY DAY MOUTH e EVERY DAY nateglinide nateglinide No nateglinid Erika 60 mg 60 mg e 60 mg [facility] tablet TAKE tablet TAKE tablet dic 1 TABLET 1 TABLET TAKE 1 Sport s BEFORE BEFORE TABLET Medicin HEAVY MEALS HEAVY MEALS BEFORE e UP TO 3 UP TO 3 HEAVY TIMES A TIMES A MEALS UP DAY. DAY. TO 3 TIMES A DAY. sertraline sertraline No sertraline Erika 50 mg 50 mg 50 mg [facility] tablet TAKE tablet TAKE tablet dic 1 TABLET BY 1 TABLET BY TAKE 1 Sports MOUTH EVERY MOUTH EVERY TABLET BY Medicin DAY DAY MOUTH e EVERY DAY Tradjenta 5 Tradjenta 5 No Tradjenta Erika mg tablet mg tablet 5 mg [facility] pe TAKE 1 TAKE 1 tablet dic TABLET BY TABLET BY TAKE 1 Spo rts MOUTH EVERY MOUTH EVERY TABLET BY Medicin DAY DAY MOUTH e EVERY DAY tramadol 50 tramadol 50 No tramadol Erika mg tablet mg tablet 50 mg [facility] TAKE 1 TAKE 1 tablet dic TABLET BY TABLET BY TAKE 1 Spo rts MOUTH EVERY MOUTH EVERY TABLET BY Medicin 6 HOURS 6 HOURS MOUTH e EVERY 6 HOURS Vitamin D3 Vitamin D3 No Vitamin D3 Erika 1 tablet 1 tablet 1 tablet [facility] twice a day twice a day twice a dic day Sports Medicin e zinc 50 mg zinc 50 mg No Q1D zinc 50 mg Erika tablet Take tablet Take tablet [facility] every day every day Take every dic by oral by oral day by Sports route. route. oral Medicin route. e Accu-Chek Accu-Chek No Accu-Chek Erika Cinthya Plus Cinthya Plus Cinthya Plus [facility] test strips test strips test d ic USE 1 STRIP USE 1 STRIP strips USE Sports TO CHECK TO CHECK 1 STRIP TO Roel valdez GLUCOSE GLUCOSE CHECK e DAILY DX DAILY DX GLUCOSE E11.9 E11.9 DAILY DX E11.9 allopurinol allopurinol No allopurino Erika 100 mg 100 mg l 100 mg [facility] tablet TAKE tablet TAKE tablet dic 1 TABLET BY 1 TABLET BY TAKE 1 Sports MOUTH TWICE MOUTH TWICE TABLET BY Medicin A DAY A DAY MOUTH e TWICE A DAY azithromyci azithromyci No azithromyc Erika n 250 mg n 250 mg in 250 mg [facility] tablet TAKE tablet TAKE tablet dic 2 TABLETS 2 TABLETS TAKE 2 Spo rts BY MOUTH BY MOUTH TABLETS BY Roel valdez TODAY, THEN TODAY, THEN MOUTH e TAKE 1 TAKE 1 TODAY, TABLET TABLET THEN TAKE DAILY FOR 4 DAILY FOR 4 1 TABLET DAYS DAYS DAILY FOR 4 DAYS benzonatate benzonatate No benzonatat Erika 100 mg 100 mg e 100 mg [facility] capsule capsule capsule dic Sports Medicin e cholecalcif cholecalcif No cholecalci Erika camden camden ferol [facility] (vitamin (vitamin (vitamin dic D3) 1,250 D3) 1,250 D3) 1,250 Sports mcg (50,000 mcg (50,000 mcg M edicin unit) unit) (50,000 e capsule capsule unit) TAKE 1 TAKE 1 capsule CAPSULE BY CAPSULE BY TAKE 1 MOUTH ONCE MOUTH ONCE CAPSULE BY A MONTH A MONTH MOUTH ONCE A MONTH dexlansopra dexlansopra No dexlansopr Erika zole 60 mg zole 60 mg azole 60 [facility] capsule,bip capsule,bip mg d ic hase hase capsule,bi Sports delayed delayed phase Medicin release release delayed e TAKE 1 TAKE 1 release CAPSULE BY CAPSULE BY TAKE 1 MOUTH DAILY MOUTH DAILY CAPSULE BY FOR 30 FOR 30 MOUTH DAYS. DAYS. DAILY FOR 30 DAYS. diltiazem diltiazem No diltiazem Erika CD 360 mg CD 360 mg CD 360 mg [facility] capsule,ext capsule,ext capsule,ex dic ended ended tended Sports release 24 release 24 release 24 Medicin hr TAKE 1 hr TAKE 1 hr TAKE 1 e CAPSULE BY CAPSULE BY CAPSULE BY MOUTH EVERY MOUTH EVERY MOUTH DAY DAY EVERY DAY Eliquis 5 Eliquis 5 No Eliquis 5 Erika mg tablet mg tablet mg tablet [facility] TAKE 1 TAKE 1 TAKE 1 dic TABLET BY TABLET BY TABLET BY Sports MOUTH TWICE MOUTH TWICE MOUTH Medicin A DAY A DAY TWICE A e DAY famotidine famotidine No famotidine Erika 20 mg 20 mg 20 mg [facility] tablet TAKE tablet TAKE tablet dic 1 TABLET BY 1 TABLET BY TAKE 1 Sports MOUTH TWICE MOUTH TWICE TABLET BY Medicin A DAY A DAY MOUTH e TWICE A DAY fenofibrate fenofibrate No fenofibrat Erika micronized micronized e [facility] 134 mg 134 mg micronized dic capsule capsule 134 mg Sports TAKE 1 TAKE 1 capsule Medicin CAPSULE BY CAPSULE BY TAKE 1 e MOUTH EVERY MOUTH EVERY CAPSULE BY DAY DAY MOUTH EVERY DAY fenofibrate fenofibrate No fenofibrat Erika nanocrystal nanocrystal e [facility] lized 145 lized 145 nanocrysta dic mg tablet mg tablet llized 145 Sports TAKE ONE TAKE ONE mg tablet Me dicin TAB ONCE A TAB ONCE A TAKE ONE e DAY DAY TAB ONCE A DAY flecainide flecainide No flecainide Erika 100 mg 100 mg 100 mg [facility] tablet TAKE tablet TAKE tablet dic 1 TABLET BY 1 TABLET BY TAKE 1 Sports MOUTH TWICE MOUTH TWICE TABLET BY Medicin A DAY A DAY MOUTH e TWICE A DAY furosemide furosemide No furosemide Erika 20 mg 20 mg 20 mg [facility] tablet TAKE tablet TAKE tablet dic 1 TABLET BY 1 TABLET BY TAKE 1 Sports MOUTH TWICE MOUTH TWICE TABLET BY Medicin A DAY A DAY MOUTH e TWICE A DAY gabapentin gabapentin No gabapentin Erika 100 mg 100 mg 100 mg [facility] capsule capsule capsule dic TAKE 1-2 TAKE 1-2 TAKE 1-2 Spo rts CAPSULE BY CAPSULE BY CAPSULE BY Medicin MOUTH EVERY MOUTH EVERY MOUTH e DAY IN THE DAY IN THE EVERY DAY EVENING OR EVENING OR IN THE AT BEDTIME AT BEDTIME EVENING OR AT BEDTIME hydrocodone hydrocodone No hydrocodon Erika 10 10 e 10 [facility] mg-chlorphe mg-chlorphe mg-chlorph dic niramine 8 niramine 8 eniramine Sports mg/5 mL mg/5 mL 8 mg/5 mL Medi tracy oral susp oral susp oral susp e extend.rel extend.rel extend.rel 12hr 12hr 12hr irbesartan irbesartan No irbesartan Erika 150 mg 150 mg 150 mg [facility] tablet TAKE tablet TAKE tablet dic 1 TABLET BY 1 TABLET BY TAKE 1 Sports MOUTH DAILY MOUTH DAILY TABLET BY Medicin FOR 30 FOR 30 MOUTH e DAYS. DAYS. DAILY FOR 30 DAYS. levalbutero levalbutero No levalbuter Erika l HFA 45 l HFA 45 ol HFA 45 Or [facility] mcg/actuati mcg/actuati mcg/actuat dic on aerosol on aerosol ion Spo rts inhaler inhaler aerosol Medici n INHALE 2 INHALE 2 inhaler e PUFFS BY PUFFS BY INHALE 2 MOUTH EVERY MOUTH EVERY PUFFS BY 4 HOURS 4 HOURS MOUTH NEEDED NEEDED EVERY 4 HOURS NEEDED levothyroxi levothyroxi No levothyrox Erika ne 125 mcg ne 125 mcg ine 125 [facility] tablet TAKE tablet TAKE mcg tablet dic 1 TABLET BY 1 TABLET BY TAKE 1 Sports MOUTH EVERY MOUTH EVERY TABLET BY Medicin DAY IN THE DAY IN THE MOUTH e MORNING ON MORNING ON EVERY DAY EMPTY EMPTY IN THE STOMACH STOMACH MORNING ON EMPTY STOMACH methocarbam methocarbam No methocarba Erika ol 500 mg ol 500 mg mol 500 mg [facility] tablet TAKE tablet TAKE tablet dic 1 TABLET BY 1 TABLET BY TAKE 1 Sports MOUTH TWO MOUTH TWO TABLET BY Medicin TIMES DAILY TIMES DAILY MOUTH TWO e NEEDED NEEDED TIMES DAILY NEEDED metoprolol metoprolol No metoprolol Erika succinate succinate succinate [facility] ER 100 mg ER 100 mg ER 100 mg dic tablet,exte tablet,exte tablet,ext Sports nded nded ended Medicin release 24 release 24 release 24 e hr TAKE 1 hr TAKE 1 hr TAKE 1 AND 1/2 AND 1/2 AND 1/2 TABLETS BY TABLETS BY TABLETS BY MOUTH EVERY MOUTH EVERY MOUTH NIGHT NIGHT EVERY NIGHT montelukast montelukast No montelukas Erika 10 mg 10 mg t 10 mg [facility] tablet TAKE tablet TAKE tablet dic 1 TABLET BY 1 TABLET BY TAKE 1 Sports MOUTH EVERY MOUTH EVERY TABLET BY Medicin DAY DAY MOUTH e EVERY DAY nateglinide nateglinide No nateglinid Erika 60 mg 60 mg e 60 mg [facility] tablet TAKE tablet TAKE tablet dic 1 TABLET 1 TABLET TAKE 1 Sport s BEFORE BEFORE TABLET Medicin HEAVY MEALS HEAVY MEALS BEFORE e UP TO 3 UP TO 3 HEAVY TIMES A TIMES A MEALS UP DAY. DAY. TO 3 TIMES A DAY. Nexium 40 Nexium 40 No Nexium 40 Erika mg mg mg [facility] capsule,del capsule,del capsule,de dic ayed ayed layed Sports release TK release TK release TK Medicin 1 TAB PO 1 TAB PO 1 TAB PO e DAILY DAILY DAILY nitrofurant nitrofurant No nitrofuran Erika oin oin toin [facility] monohydrate monohydrate monohydrat dic /macrocryst /macrocryst e/macrocry Sports als 100 mg als 100 mg stals 100 Medicin capsule capsule mg capsule e TAKE 1 TAKE 1 TAKE 1 CAPSULE CAPSULE CAPSULE (100 MG (100 MG (100 MG TOTAL) BY TOTAL) BY TOTAL) BY MOUTH TWICE MOUTH TWICE MOUTH A DAY FOR 3 A DAY FOR 3 TWICE A DAYS DAYS DAY FOR 3 DAYS omeprazole omeprazole No omeprazole Erika 40 mg 40 mg 40 mg [facility] capsule,del capsule,del capsule,de dic ayed ayed layed Sports release release release Medici n TAKE 1 TAKE 1 TAKE 1 e CAPSULE BY CAPSULE BY CAPSULE BY MOUTH EVERY MOUTH EVERY MOUTH DAY DAY EVERY DAY prednisone prednisone No prednisone Erika 10 mg 10 mg 10 mg [facility] tablet TAKE tablet TAKE tablet dic 1 TABLET 1 TABLET TAKE 1 Sport s ORALLY ORALLY TABLET Medicin TWICE DAILY TWICE DAILY ORALLY e WITH FOOD. WITH FOOD. TWICE DAILY WITH FOOD. sertraline sertraline No sertraline Erika 50 mg 50 mg 50 mg [facility] tablet TAKE tablet TAKE tablet dic 1 TABLET BY 1 TABLET BY TAKE 1 Sports MOUTH EVERY MOUTH EVERY TABLET BY Medicin DAY DAY MOUTH e EVERY DAY Tradjenta 5 Tradjenta 5 No Tradjenta Erika mg tablet mg tablet 5 mg [facility] pe TAKE 1 TAKE 1 tablet dic TABLET BY TABLET BY TAKE 1 Spo rts MOUTH EVERY MOUTH EVERY TABLET BY Medicin DAY DAY MOUTH e EVERY DAY tramadol 50 tramadol 50 No tramadol Erika mg tablet mg tablet 50 mg [facility] TAKE 1 TAKE 1 tablet dic TABLET BY TABLET BY TAKE 1 Spo rts MOUTH EVERY MOUTH EVERY TABLET BY Medicin 6 HOURS 6 HOURS MOUTH e NEEDED FOR NEEDED FOR EVERY 6 ACUTE PAIN ACUTE PAIN HOURS NEEDED FOR ACUTE PAIN Accu-Chek Accu-Chek No Accu-Chek Erika Cinthya Plus Cinthya Plus Cinthya Plus [facility] test strips test strips test d ic USE 1 STRIP USE 1 STRIP strips USE Sports TO CHECK TO CHECK 1 STRIP TO M edicin GLUCOSE GLUCOSE CHECK e DAILY DX DAILY DX GLUCOSE E11.9 E11.9 DAILY DX E11.9 allopurinol allopurinol No allopurino Erika 100 mg 100 mg l 100 mg [facility] tablet TAKE tablet TAKE tablet dic 1 TABLET BY 1 TABLET BY TAKE 1 Sports MOUTH TWICE MOUTH TWICE TABLET BY Medicin A DAY A DAY MOUTH e TWICE A DAY dexlansopra dexlansopra No dexlansopr Erika zole 60 mg zole 60 mg azole 60 [facility] capsule,bip capsule,bip mg d ic hase hase capsule,bi Sports delayed delayed phase Medicin release release delayed e TAKE 1 TAKE 1 release CAPSULE BY CAPSULE BY TAKE 1 MOUTH DAILY MOUTH DAILY CAPSULE BY FOR 30 FOR 30 MOUTH DAYS. DAYS. DAILY FOR 30 DAYS. diltiazem diltiazem No diltiazem Erika CD 360 mg CD 360 mg CD 360 mg [facility] capsule,ext capsule,ext capsule,ex dic ended ended tended Sports release 24 release 24 release 24 Medicin hr TAKE 1 hr TAKE 1 hr TAKE 1 e CAPSULE BY CAPSULE BY CAPSULE BY MOUTH EVERY MOUTH EVERY MOUTH DAY DAY EVERY DAY Eliquis 5 Eliquis 5 No Eliquis 5 Erika mg tablet mg tablet mg tablet [facility] TAKE 1 TAKE 1 TAKE 1 dic TABLET BY TABLET BY TABLET BY Sports MOUTH TWICE MOUTH TWICE MOUTH Medicin A DAY A DAY TWICE A e DAY fenofibrate fenofibrate No fenofibrat Erika nanocrystal nanocrystal e [facility] lized 145 lized 145 nanocrysta dic mg tablet mg tablet llized 145 Sports TAKE ONE TAKE ONE mg tablet Me dicin TAB ONCE A TAB ONCE A TAKE ONE e DAY DAY TAB ONCE A DAY flecainide flecainide No flecainide Erika 100 mg 100 mg 100 mg [facility] tablet TAKE tablet TAKE tablet dic 1 TABLET BY 1 TABLET BY TAKE 1 Sports MOUTH TWICE MOUTH TWICE TABLET BY Medicin A DAY A DAY MOUTH e TWICE A DAY furosemide furosemide No furosemide Erika 20 mg 20 mg 20 mg [facility] tablet TAKE tablet TAKE tablet dic 1 TABLET BY 1 TABLET BY TAKE 1 Sports MOUTH TWICE MOUTH TWICE TABLET BY Medicin A DAY A DAY MOUTH e TWICE A DAY levothyroxi levothyroxi No levothyrox Erika ne 125 mcg ne 125 mcg ine 125 [facility] tablet TAKE tablet TAKE mcg tablet dic 1 TABLET BY 1 TABLET BY TAKE 1 Sports MOUTH EVERY MOUTH EVERY TABLET BY Medicin DAY IN THE DAY IN THE MOUTH e MORNING ON MORNING ON EVERY DAY EMPTY EMPTY IN THE STOMACH STOMACH MORNING ON EMPTY STOMACH melatonin melatonin No Q1D melatonin Erika 10 mg 10 mg 10 mg [facility] tablet Take tablet Take tablet dic every day every day Take every Sports by oral by oral day by Medicin route. route. oral e route. metoprolol metoprolol No metoprolol Erika succinate succinate succinate [facility] ER 100 mg ER 100 mg ER 100 mg dic tablet,exte tablet,exte tablet,ext Sports nded nded ended Medicin release 24 release 24 release 24 e hr TAKE 1 hr TAKE 1 hr TAKE 1 AND 1/2 AND 1/2 AND 1/2 TABLETS BY TABLETS BY TABLETS BY MOUTH EVERY MOUTH EVERY MOUTH NIGHT NIGHT EVERY NIGHT montelukast montelukast No montelukas Erika 10 mg 10 mg t 10 mg [facility] tablet TAKE tablet TAKE tablet dic 1 TABLET BY 1 TABLET BY TAKE 1 Sports MOUTH EVERY MOUTH EVERY TABLET BY Medicin DAY MOUTH e EVERY DAY nateglinide nateglinide No nateglinid Erika 60 mg 60 mg e 60 mg [facility] tablet TAKE tablet TAKE tablet dic 1 TABLET 1 TABLET TAKE 1 Sport s BEFORE BEFORE TABLET Medicin HEAVY MEALS HEAVY MEALS BEFORE e UP TO 3 UP TO 3 HEAVY TIMES A TIMES A MEALS UP DAY. DAY. TO 3 TIMES A DAY. sertraline sertraline No sertraline Erika 50 mg 50 mg 50 mg [facility] tablet TAKE tablet TAKE tablet dic 1 TABLET BY 1 TABLET BY TAKE 1 Sports MOUTH EVERY MOUTH EVERY TABLET BY Medicin DAY MOUTH e EVERY DAY Tradjenta 5 Tradjenta 5 No Tradjenta Erika mg tablet mg tablet 5 mg [facility] pe TAKE 1 TAKE 1 tablet dic TABLET BY TABLET BY TAKE 1 Spo rts MOUTH EVERY MOUTH EVERY TABLET BY Medicin DAY DAY MOUTH e EVERY DAY Vitamin D3 Vitamin D3 No Vitamin D3 Erika 1 tablet 1 tablet 1 tablet [facility] twice a day twice a day twice a dic day Sports Medicin e zinc 50 mg zinc 50 mg No Q1D zinc 50 mg Erika tablet Take tablet Take tablet [facility] every day every day Take every dic by oral by oral day by Sports route. route. oral Medicin route. e Accu-Chek Accu-Chek No Accu-Chek Erika Cinthya Plus Cinthya Plus Cinthya Plus [facility] test strips test strips test d ic USE 1 STRIP USE 1 STRIP strips USE Sports TO CHECK TO CHECK 1 STRIP TO M edicin GLUCOSE GLUCOSE CHECK e GLUCOSE allopurinol allopurinol No allopurino Erika l [facility] dic Sports Medicin e allopurinol allopurinol No allopurino Erika 100 mg 100 mg l 100 mg [facility] tablet TAKE tablet TAKE tablet dic 1 TABLET BY 1 TABLET BY TAKE 1 Sports MOUTH TWICE MOUTH TWICE TABLET BY Medicin A DAY A DAY MOUTH e TWICE A DAY dexlansopra dexlansopra No dexlansopr Erika zole 60 mg zole 60 mg azole 60 [facility] capsule,bip capsule,bip mg d ic hase hase capsule,bi Sports delayed delayed phase Medicin release release delayed e TAKE 1 TAKE 1 release CAPSULE BY CAPSULE BY TAKE 1 MOUTH DAILY MOUTH DAILY CAPSULE BY FOR 30 FOR 30 MOUTH DAYS. DAYS. DAILY FOR 30 DAYS. diltiazem diltiazem No diltiazem Erika CD 360 mg CD 360 mg CD 360 mg [facility] capsule,ext capsule,ext capsule,ex dic ended ended tended Sports release 24 release 24 release 24 Medicin hr TAKE 1 hr TAKE 1 hr TAKE 1 e CAPSULE BY CAPSULE BY CAPSULE BY MOUTH EVERY MOUTH EVERY MOUTH DAY DAY EVERY DAY Eliquis 5 Eliquis 5 No Eliquis 5 Erika mg tablet mg tablet mg tablet [facility] TAKE 1 TAKE 1 TAKE 1 dic TABLET BY TABLET BY TABLET BY Sports MOUTH TWICE MOUTH TWICE MOUTH Medicin A DAY A DAY TWICE A e DAY fenofibrate fenofibrate No fenofibrat Erika nanocrystal nanocrystal e [facility] lized 145 lized 145 nanocrysta dic mg tablet mg tablet llized 145 Sports TAKE ONE TAKE ONE mg tablet Me dicin TAB ONCE A TAB ONCE A TAKE ONE e DAY DAY TAB ONCE A DAY flecainide flecainide No flecainide Erika 100 mg 100 mg 100 mg [facility] tablet TAKE tablet TAKE tablet dic 1 TABLET BY 1 TABLET BY TAKE 1 Sports MOUTH TWICE MOUTH TWICE TABLET BY Medicin A DAY A DAY MOUTH e TWICE A DAY furosemide furosemide No furosemide Erika 20 mg 20 mg 20 mg [facility] tablet TAKE tablet TAKE tablet dic 1 TABLET BY 1 TABLET BY TAKE 1 Sports MOUTH TWICE MOUTH TWICE TABLET BY Medicin A DAY A DAY MOUTH e TWICE A DAY levothyroxi levothyroxi No levothyrox Erika ne 125 mcg ne 125 mcg ine 125 [facility] tablet TAKE tablet TAKE mcg tablet dic 1 TABLET BY 1 TABLET BY TAKE 1 Sports MOUTH EVERY MOUTH EVERY TABLET BY Medicin DAY IN THE DAY IN THE MOUTH e MORNING ON MORNING ON EVERY DAY EMPTY EMPTY IN THE STOMACH STOMACH MORNING ON EMPTY STOMACH melatonin melatonin No Q1D melatonin Erika 10 mg 10 mg 10 mg [facility] tablet Take tablet Take tablet dic every day every day Take every Sports by oral by oral day by Medicin route. route. oral e route. metoprolol metoprolol No metoprolol Erika succinate succinate succinate [facility] ER 100 mg ER 100 mg ER 100 mg dic tablet,exte tablet,exte tablet,ext Sports nded nded ended Medicin release 24 release 24 release 24 e hr TAKE 1 hr TAKE 1 hr TAKE 1 AND 1/2 AND 1/2 AND 1/2 TABLETS BY TABLETS BY TABLETS BY MOUTH EVERY MOUTH EVERY MOUTH NIGHT NIGHT EVERY NIGHT montelukast montelukast No montelukas Erika 10 mg 10 mg t 10 mg [facility] tablet TAKE tablet TAKE tablet dic 1 TABLET BY 1 TABLET BY TAKE 1 Sports MOUTH EVERY MOUTH EVERY TABLET BY Medicin DAY DAY MOUTH e EVERY DAY nateglinide nateglinide No nateglinid Erika 60 mg 60 mg e 60 mg [facility] tablet TAKE tablet TAKE tablet dic 1 TABLET 1 TABLET TAKE 1 Sport s BEFORE BEFORE TABLET Medicin HEAVY MEALS HEAVY MEALS BEFORE e UP TO 3 UP TO 3 HEAVY TIMES A TIMES A MEALS UP DAY. DAY. TO 3 TIMES A DAY. sertraline sertraline No sertraline E[facility] 50 mg 50 mg 50 mg [facility] tablet TAKE tablet TAKE tablet dic 1 TABLET BY 1 TABLET BY TAKE 1 Sports MOUTH EVERY MOUTH EVERY TABLET BY Medicin DAY DAY MOUTH e EVERY DAY Tradjenta 5 Tradjenta 5 No Tradjenta Erika mg tablet mg tablet 5 mg [facility] pe TAKE 1 TAKE 1 tablet dic TABLET BY TABLET BY TAKE 1 Spo rts MOUTH EVERY MOUTH EVERY TABLET BY Medicin DAY DAY MOUTH e EVERY DAY Vitamin D3 Vitamin D3 No Vitamin D3 Erika 1 tablet 1 tablet 1 tablet [facility] hope twice a day twice a day twice a dic day Sports Medicin e zinc 50 mg zinc 50 mg No Q1D zinc 50 mg Erika tablet Take tablet Take tablet [facility] every day every day Take every dic by oral by oral day by Sports route. route. oral Medicin route. e Accu-Chek Accu-Chek No Accu-Chek Erika Cinthya Plus Cinthya Plus Cinthya Plus [facility] test strips test strips test d ic USE 1 STRIP USE 1 STRIP strips USE Sports TO CHECK TO CHECK 1 STRIP TO M edicin GLUCOSE GLUCOSE CHECK e GLUCOSE allopurinol allopurinol No allopurino [facility] l [facility] dic Sports Medicin e allopurinol allopurinol No allopurino Erika 100 mg 100 mg l 100 mg [facility] tablet TAKE tablet TAKE tablet dic 1 TABLET BY 1 TABLET BY TAKE 1 Sports MOUTH TWICE MOUTH TWICE TABLET BY Medicin A DAY A DAY MOUTH e TWICE A DAY dexlansopra dexlansopra No dexlansopr Erika zole 60 mg zole 60 mg azole 60 [facility] capsule,bip capsule,bip mg d ic hase hase capsule,bi Sports delayed delayed phase Medicin release release delayed e TAKE 1 TAKE 1 release CAPSULE BY CAPSULE BY TAKE 1 MOUTH DAILY MOUTH DAILY CAPSULE BY FOR 30 FOR 30 MOUTH DAYS. DAYS. DAILY FOR 30 DAYS. diltiazem diltiazem No diltiazem Erika CD 360 mg CD 360 mg CD 360 mg [facility] capsule,ext capsule,ext capsule,ex dic ended ended tended Sports release 24 release 24 release 24 Medicin hr TAKE 1 hr TAKE 1 hr TAKE 1 e CAPSULE BY CAPSULE BY CAPSULE BY MOUTH EVERY MOUTH EVERY MOUTH DAY DAY EVERY DAY Eliquis 5 Eliquis 5 No Eliquis 5 Erika mg tablet mg tablet mg tablet [facility] TAKE 1 TAKE 1 TAKE 1 dic TABLET BY TABLET BY TABLET BY Sports MOUTH TWICE MOUTH TWICE MOUTH Medicin A DAY A DAY TWICE A e DAY fenofibrate fenofibrate No fenofibrat Erika nanocrystal nanocrystal e [facility]ope lized 145 lized 145 nanocrysta dic mg tablet mg tablet llized 145 Sports TAKE ONE TAKE ONE mg tablet Me dicin TAB ONCE A TAB ONCE A TAKE ONE e DAY DAY TAB ONCE A DAY flecainide flecainide No flecainide Erika 100 mg 100 mg 100 mg [facility] tablet TAKE tablet TAKE tablet dic 1 TABLET BY 1 TABLET BY TAKE 1 Sports MOUTH TWICE MOUTH TWICE TABLET BY Medicin A DAY A DAY MOUTH e TWICE A DAY furosemide furosemide No furosemide Erika 20 mg 20 mg 20 mg [facility] tablet TAKE tablet TAKE tablet dic 1 TABLET BY 1 TABLET BY TAKE 1 Sports MOUTH TWICE MOUTH TWICE TABLET BY Medicin A DAY A DAY MOUTH e TWICE A DAY levothyroxi levothyroxi No levothyrox Erika ne 125 mcg ne 125 mcg ine 125 [facility] tablet TAKE tablet TAKE mcg tablet dic 1 TABLET BY 1 TABLET BY TAKE 1 Sports MOUTH EVERY MOUTH EVERY TABLET BY Medicin DAY IN THE DAY IN THE MOUTH e MORNING ON MORNING ON EVERY DAY EMPTY EMPTY IN THE STOMACH STOMACH MORNING ON EMPTY STOMACH melatonin melatonin No Q1D melatonin Erika 10 mg 10 mg 10 mg [facility] tablet Take tablet Take tablet dic every day every day Take every Sports by oral by oral day by Medicin route. route. oral e route. metoprolol metoprolol No metoprolol Erika succinate succinate succinate [facility] ER 100 mg ER 100 mg ER 100 mg dic tablet,exte tablet,exte tablet,ext Sports nded nded ended Medicin release 24 release 24 release 24 e hr TAKE 1 hr TAKE 1 hr TAKE 1 AND 1/2 AND /2 AND 1/2 TABLETS BY TABLETS BY TABLETS BY MOUTH EVERY MOUTH EVERY MOUTH NIGHT NIGHT EVERY NIGHT montelukast montelukast No montelukas Erika 10 mg 10 mg t 10 mg [facility] tablet TAKE tablet TAKE tablet dic 1 TABLET BY 1 TABLET BY TAKE 1 Sports MOUTH EVERY MOUTH EVERY TABLET BY Medicin DAY MOUTH e EVERY DAY nateglinide nateglinide No nateglinid Erika 60 mg 60 mg e 60 mg [facility] tablet TAKE tablet TAKE tablet dic 1 TABLET 1 TABLET TAKE 1 Sport s BEFORE BEFORE TABLET Medicin HEAVY MEALS HEAVY MEALS BEFORE e UP TO 3 UP TO 3 HEAVY TIMES A TIMES A MEALS UP DAY. DAY. TO 3 TIMES A DAY. sertraline sertraline No sertraline Erika 50 mg 50 mg 50 mg [facility] tablet TAKE tablet TAKE tablet dic 1 TABLET BY 1 TABLET BY TAKE 1 Sports MOUTH EVERY MOUTH EVERY TABLET BY Medicin DAY DAY MOUTH e EVERY DAY Tradjenta 5 Tradjenta 5 No Tradjenta Erika mg tablet mg tablet 5 mg [facility] pe TAKE 1 TAKE 1 tablet dic TABLET BY TABLET BY TAKE 1 Spo rts MOUTH EVERY MOUTH EVERY TABLET BY Medicin DAY DAY MOUTH e EVERY DAY Vitamin D3 Vitamin D3 No Vitamin D3 Erika 1 tablet 1 tablet 1 tablet [facility] twice a day twice a day twice a dic day Sports Medicin e zinc 50 mg zinc 50 mg No Q1D zinc 50 mg Erika tablet Take tablet Take tablet [facility] every day every day Take every dic by oral by oral day by Sports route. route. oral Medicin route. e Accu-Chek Accu-Chek No Accu-Chek Erika Cinthya Plus Cinthya Plus Cinthya Plus [facility] test strips test strips test d ic USE 1 STRIP USE 1 STRIP strips USE Sports TO CHECK TO CHECK 1 STRIP TO M edicin GLUCOSE GLUCOSE CHECK e DAILY DX DAILY DX GLUCOSE E11.9 E11.9 DAILY DX E11.9 allopurinol allopurinol No allopurino [facility] l [facility] dic Sports Medicin e allopurinol allopurinol No allopurino Erika 100 mg 100 mg l 100 mg [facility] tablet TAKE tablet TAKE tablet dic 1 TABLET BY 1 TABLET BY TAKE 1 Sports MOUTH TWICE MOUTH TWICE TABLET BY Medicin A DAY. STOP A DAY. STOP MOUTH e ULORIC ULORIC TWICE A DAY. STOP ULORIC dexamethaso dexamethaso No dexamethas Erika ne 0.75 mg ne 0.75 mg one 0.75 [facility] tablet tablet mg tablet dic PLEASE SEE PLEASE SEE PLEASE SEE Sports ATTACHED ATTACHED ATTACHED Med icin FOR FOR FOR e DETAILED DETAILED DETAILED DIRECTIONS DIRECTIONS DIRECTIONS dexlansopra dexlansopra No dexlansopr Erika zole 60 mg zole 60 mg azole 60 [facility] capsule,bip capsule,bip mg d ic hase hase capsule,bi Sports delayed delayed phase Medicin release release delayed e TAKE 1 TAKE 1 release CAPSULE BY CAPSULE BY TAKE 1 MOUTH EVERY MOUTH EVERY CAPSULE BY DAY DAY MOUTH EVERY DAY diltiazem diltiazem No diltiazem Erika CD 360 mg CD 360 mg CD 360 mg [facility] capsule,ext capsule,ext capsule,ex dic ended ended tended Sports release 24 release 24 release 24 Medicin hr TAKE 1 hr TAKE 1 hr TAKE 1 e CAPSULE BY CAPSULE BY CAPSULE BY MOUTH MOUTH MOUTH EVERYDAY EVERYDAY EVERYDAY Eliquis 5 Eliquis 5 No Eliquis 5 Erika mg tablet mg tablet mg tablet [facility] TAKE 1 TAKE 1 TAKE 1 dic TABLET BY TABLET BY TABLET BY Sports MOUTH TWICE MOUTH TWICE MOUTH Medicin A DAY A DAY TWICE A e DAY fenofibrate fenofibrate No fenofibrat Erika nanocrystal nanocrystal e [facility] lized 145 lized 145 nanocrysta dic mg tablet mg tablet llized 145 Sports TAKE 1 TAKE 1 mg tablet Medici n TABLET BY TABLET BY TAKE 1 e MOUTH EVERY MOUTH EVERY TABLET BY DAY DAY MOUTH EVERY DAY flecainide flecainide No flecainide Erika 100 mg 100 mg 100 mg [facility] tablet TAKE tablet TAKE tablet dic 1 TABLET BY 1 TABLET BY TAKE 1 Sports MOUTH TWICE MOUTH TWICE TABLET BY Medicin A DAY A DAY MOUTH e TWICE A DAY furosemide furosemide No furosemide Erika 20 mg 20 mg 20 mg [facility] tablet TAKE tablet TAKE tablet dic 1 TABLET BY 1 TABLET BY TAKE 1 Sports MOUTH TWICE MOUTH TWICE TABLET BY Medicin A DAY A DAY MOUTH e TWICE A DAY levothyroxi levothyroxi No levothyrox Erika ne 125 mcg ne 125 mcg ine 125 [facility] tablet TAKE tablet TAKE mcg tablet dic 1 TABLET BY 1 TABLET BY TAKE 1 Sports MOUTH EVERY MOUTH EVERY TABLET BY Medicin DAY IN THE DAY IN THE MOUTH e MORNING ON MORNING ON EVERY DAY EMPTY EMPTY IN THE STOMACH STOMACH MORNING ON EMPTY STOMACH melatonin melatonin No Q1D melatonin Erika 10 mg 10 mg 10 mg [facility] tablet Take tablet Take tablet dic every day every day Take every Sports by oral by oral day by Medicin route. route. oral e route. metoprolol metoprolol No metoprolol Erika succinate succinate succinate [facility] ER 100 mg ER 100 mg ER 100 mg dic tablet,exte tablet,exte tablet,ext Sports nded nded ended Medicin release 24 release 24 release 24 e hr TAKE 1 hr TAKE 1 hr TAKE 1 AND 1/2 AND 1/2 AND 1/2 TABLET BY TABLET BY TABLET BY MOUTH AT MOUTH AT MOUTH AT BEDTIME BEDTIME BEDTIME montelukast montelukast No montelukas Erika 10 mg 10 mg t 10 mg [facility] tablet TAKE tablet TAKE tablet dic 1 TABLET BY 1 TABLET BY TAKE 1 Sports MOUTH EVERY MOUTH EVERY TABLET BY Medicin DAY DAY MOUTH e EVERY DAY nateglinide nateglinide No nateglinid Erika 60 mg 60 mg e 60 mg [facility] tablet TAKE tablet TAKE tablet dic 1 TABLET BY 1 TABLET BY TAKE 1 Sports MOUTH 3 MOUTH 3 TABLET BY Medi tracy TIMES A DAY TIMES A DAY MOUTH 3 e BEFORE BEFORE TIMES A MEALS MEALS DAY BEFORE MEALS sertraline sertraline No sertraline Erika 50 mg 50 mg 50 mg [facility] tablet TAKE tablet TAKE tablet dic 1 TABLET BY 1 TABLET BY TAKE 1 Sports MOUTH EVERY MOUTH EVERY TABLET BY Medicin DAY DAY MOUTH e EVERY DAY Tradjenta 5 Tradjenta 5 No Tradjenta Erika mg tablet mg tablet 5 mg [facility] pe TAKE 1 TAKE 1 tablet dic TABLET BY TABLET BY TAKE 1 Spo rts MOUTH EVERY MOUTH EVERY TABLET BY Medicin DAY DAY MOUTH e EVERY DAY tramadol 50 tramadol 50 No tramadol Erika mg tablet mg tablet 50 mg [facility] TAKE 1 TAKE 1 tablet dic TABLET BY TABLET BY TAKE 1 Spo rts MOUTH EVERY MOUTH EVERY TABLET BY Medicin 6 HOURS 6 HOURS MOUTH e EVERY 6 HOURS Vitamin D3 Vitamin D3 No Vitamin D3 Erika 1 tablet 1 tablet 1 tablet [facility] twice a day twice a day twice a dic day Sports Medicin e Xifaxan 550 Xifaxan 550 No Xifaxan Erika mg tablet mg tablet 550 mg [facility] TAKE 1 TAKE 1 tablet dic TABLET BY TABLET BY TAKE 1 Spo rts MOUTH 3 MOUTH 3 TABLET BY Medi tracy TIMES A DAY TIMES A DAY MOUTH 3 e FOR 14 FOR 14 TIMES A DAYS. DAYS. DAY FOR 14 DAYS. zinc 50 mg zinc 50 mg No Q1D zinc 50 mg E[facility] tablet Take tablet Take tablet [facility] every day every day Take every dic by oral by oral day by Sports route. route. oral Medicin route. e Accu-Chek Accu-Chek No Accu-Chek Erika Cinthya Plus Cinthya Plus Cinthya Plus [facility] test strips test strips test d ic USE 1 STRIP USE 1 STRIP strips USE Sports TO CHECK TO CHECK 1 STRIP TO M edicin GLUCOSE GLUCOSE CHECK e GLUCOSE allopurinol allopurinol No allopurino Erika l [facility] dic Sports Medicin e allopurinol allopurinol No allopurino Erika 100 mg 100 mg l 100 mg [facility] tablet TAKE tablet TAKE tablet dic 1 TABLET BY 1 TABLET BY TAKE 1 Sports MOUTH TWICE MOUTH TWICE TABLET BY Medicin A DAY A DAY MOUTH e TWICE A DAY dexlansopra dexlansopra No dexlansopr Erika zole 60 mg zole 60 mg azole 60 [facility] capsule,bip capsule,bip mg d ic hase hase capsule,bi Sports delayed delayed phase Medicin release release delayed e TAKE 1 TAKE 1 release CAPSULE BY CAPSULE BY TAKE 1 MOUTH DAILY MOUTH DAILY CAPSULE BY FOR 30 FOR 30 MOUTH DAYS. DAYS. DAILY FOR 30 DAYS. diltiazem diltiazem No diltiazem Erika CD 360 mg CD 360 mg CD 360 mg [facility] capsule,ext capsule,ext capsule,ex dic ended ended tended Sports release 24 release 24 release 24 Medicin hr TAKE 1 hr TAKE 1 hr TAKE 1 e CAPSULE BY CAPSULE BY CAPSULE BY MOUTH EVERY MOUTH EVERY MOUTH DAY DAY EVERY DAY Eliquis 5 Eliquis 5 No Eliquis 5 Erika mg tablet mg tablet mg tablet [facility] TAKE 1 TAKE 1 TAKE 1 dic TABLET BY TABLET BY TABLET BY Sports MOUTH TWICE MOUTH TWICE MOUTH Medicin A DAY A DAY TWICE A e DAY fenofibrate fenofibrate No fenofibrat Erika nanocrystal nanocrystal e [facility] lized 145 lized 145 nanocrysta dic mg tablet mg tablet llized 145 Sports TAKE ONE TAKE ONE mg tablet Me dicin TAB ONCE A TAB ONCE A TAKE ONE e DAY DAY TAB ONCE A DAY flecainide flecainide No flecainide Erika 100 mg 100 mg 100 mg [facility] tablet TAKE tablet TAKE tablet dic 1 TABLET BY 1 TABLET BY TAKE 1 Sports MOUTH TWICE MOUTH TWICE TABLET BY Medicin A DAY A DAY MOUTH e TWICE A DAY furosemide furosemide No furosemide Erika 20 mg 20 mg 20 mg [facility] tablet TAKE tablet TAKE tablet dic 1 TABLET BY 1 TABLET BY TAKE 1 Sports MOUTH TWICE MOUTH TWICE TABLET BY Medicin A DAY A DAY MOUTH e TWICE A DAY levothyroxi levothyroxi No levothyrox Erika ne 125 mcg ne 125 mcg ine 125 [facility] tablet TAKE tablet TAKE mcg tablet dic 1 TABLET BY 1 TABLET BY TAKE 1 Sports MOUTH EVERY MOUTH EVERY TABLET BY Medicin DAY IN THE DAY IN THE MOUTH e MORNING ON MORNING ON EVERY DAY EMPTY EMPTY IN THE STOMACH STOMACH MORNING ON EMPTY STOMACH melatonin melatonin No Q1D melatonin Erika 10 mg 10 mg 10 mg [facility] tablet Take tablet Take tablet dic every day every day Take every Sports by oral by oral day by Medicin route. route. oral e route. metoprolol metoprolol No metoprolol Erika succinate succinate succinate [facility] ER 100 mg ER 100 mg ER 100 mg dic tablet,exte tablet,exte tablet,ext Sports nded nded ended Medicin release 24 release 24 release 24 e hr TAKE 1 hr TAKE 1 hr TAKE 1 AND 1/2 AND 1/2 AND 1/2 TABLETS BY TABLETS BY TABLETS BY MOUTH EVERY MOUTH EVERY MOUTH NIGHT NIGHT EVERY NIGHT montelukast montelukast No montelukas Erika 10 mg 10 mg t 10 mg [facility] tablet TAKE tablet TAKE tablet dic 1 TABLET BY 1 TABLET BY TAKE 1 Sports MOUTH EVERY MOUTH EVERY TABLET BY Medicin DAY DAY MOUTH e EVERY DAY nateglinide nateglinide No nateglinid Erika 60 mg 60 mg e 60 mg [facility] tablet TAKE tablet TAKE tablet dic 1 TABLET 1 TABLET TAKE 1 Sport s BEFORE BEFORE TABLET Medicin HEAVY MEALS HEAVY MEALS BEFORE e UP TO 3 UP TO 3 HEAVY TIMES A TIMES A MEALS UP DAY. DAY. TO 3 TIMES A DAY. sertraline sertraline No sertraline Erika 50 mg 50 mg 50 mg [facility] tablet TAKE tablet TAKE tablet dic 1 TABLET BY 1 TABLET BY TAKE 1 Sports MOUTH EVERY MOUTH EVERY TABLET BY Medicin DAY DAY MOUTH e EVERY DAY Tradjenta 5 Tradjenta 5 No Tradjenta Erika mg tablet mg tablet 5 mg [facility] pe TAKE 1 TAKE 1 tablet dic TABLET BY TABLET BY TAKE 1 Spo rts MOUTH EVERY MOUTH EVERY TABLET BY Medicin DAY DAY MOUTH e EVERY DAY Vitamin D3 Vitamin D3 No Vitamin D3 Erika 1 tablet 1 tablet 1 tablet [facility] twice a day twice a day twice a dic day Sports Medicin e zinc 50 mg zinc 50 mg No Q1D zinc 50 mg Erika tablet Take tablet Take tablet [facility] every day every day Take every dic by oral by oral day by Sports route. route. oral Medicin route. e Immunizations Ordered Immunization Filled Immunization Date Status Commen ts Source Name Name [place] [address] 2020-09-19 Completed [facility] [place] [address] 2020-08-22 Completed [facility]00 Hospital Vital Signs Vital Name Observation Time Observation Value Comments Source Height 2022-08-29 00:00:00 62 [in_i] [facility] Height 2022-05-27 00:00:00 62 [in_i] [facility] Height 2022-04-29 00:00:00 62 [in_i] [facility] BP Diastolic 2022-04-04 00:00:00 80 mm[Hg] [facility] Height 2022-04-04 00:00:00 62 [in_i] [facility] BMI (Body Mass 2022-04-04 00:00:00 40.1 kg/m2 [facility] BP Systolic 2022-04-04 00:00:00 140 mm[Hg] [facility] Body Weight 2022-04-04 00:00:00 219 [lb_av] [facility] BP Diastolic 2022-03-05 00:00:00 64 mm[Hg] [facility] Height 2022-03-05 00:00:00 63 [in_i] [facility] BMI (Body Mass 2022-03-05 00:00:00 38.8 kg/m2 [facility] BP Systolic 2022-03-05 00:00:00 110 mm[Hg] [facility] Body Weight 2022-03-05 00:00:00 219 [lb_av] [facility] Systolic blood 2022-12-24 15:46:00 149 mm[Hg] Method [facility] pressure Diastolic blood 2022-12-24 15:46:00 82 mm[facility]Hg[facility] pressure Heart rate 2022-12-24 15:46:00 76 /min [facility] Body height 2022-12-24 15:46:00 157.5 cm [facility] Body weight 2022-12-24 15:46:00 104.872 kg [facility] BMI 2022-12-24 15:46:00 42.29 kg/m2 [facility] Respiratory rate 2022-11-06 18:56:00 18 /min [facility] Oxygen saturation in 2022-11-06 18:56:00 95 /min [facility] Arterial blood by Pulse oximetry Body temperature 2022-07-12 19:45:00 36.67 Rajni [facility] Systolic blood 2022-01-23 19:31:00 152 mm[Hg] Method [facility] pressure Diastolic blood 2022-01-23 19:31:00 76 mm[Hg] [facility] Heart rate 2022-01-23 19:31:00 81 /min [facility] Body height 2022-01-23 19:31:00 157.5 cm [facility] Body weight 2022-01-23 19:31:00 101.606 kg [facility] BMI 2022-01-23 19:31:00 40.97 kg/m2 [facility] Procedures Procedure Date / Time Performing Source Performed Clinician CV CTA CORONARY ARTERIES W 2022-11-06 Eliezer Chacon dist CONTRAST 21:23:15 Hospital POC CREATININE 2022-11-06 Eliezer Chacon 20:39:00 [facility] ESTIMATED GFR 2022-11-06 Eliezer Chacon 20:39:[address] [facility] [address] CARDIAC OVERREAD 2022-11-06 Eliezer Chacon 19:46:45 [facility] CV STRESS TEST NUCLEAR CARDIO 2022-10-10 Eliezer Chacon [facility]odist 20:45:10 [facility] NM MYOCARDIAL PERFUSION 2022-10-08 Eliezer Chacon 14:51:00 [facility] COMPREHENSIVE METABOLIC PANEL 2022-08-29 Shun Okeefe [facility]odist 16:04:00 [facility] PHOSPHORUS LEVEL 2022-08-29 Shun Okeefe 16:04:00 [facility] PARATHYROID HORMONE 2022-08-29 Shun Okeefe 16:04:00 [facility] PROTEIN, URINE, RANDOM 2022-08-29 Shun Okeefe 16:04:00 [facility] CREATININE LEVEL, URINE, RANDOM 2022-08-29 Shun Okeefe 16:04:00 [facility] URINALYSIS, AUTOMATED WITH 2022-08-29 Shun Okeefe dist MICROSCOPY 16:04:00 [facility] XR, shoulder, 2 or more view 2022-08-29 [facility] 00:00:00 [facility] SURGICAL PATHOLOGY REQUEST 2022-07-12 Ramo Angelo 21:15:00 [facility] POC GLUCOSE 2022-07-12 Ramo Angelo 19:26:00 [facility] ESOPHAGOGASTRODUODENOSCOPY (EGD) 2022-07-12 Cali Angelo 19:00:00 Hospital ESOPHAGOGASTRODUODENOSCOPY (EGD) 2022-07-12 Cali Angelo 18:56:00 Hospital POC GLUCOSE 2022-07-12 Ramo Angelo 18:27:00 Hospital COVID-19 QUALITATIVE RT-PCR 2022-07-11 Ramo Angelo Ma [facility] 17:53:00 Hospital XR, hand, 3 or more view 2022-04-04 [facility] 00:00:00 [facility] DEXA, axial skeleton + vertebral 2022-03-05 [facility] fracture assessment 00:00:00 [facility] ine CBC WITH PLATELET AND DIFFERENTIAL 2022-02-12 Shun Okeefe 14:15:00 [facility] COMPREHENSIVE METABOLIC PANEL 2022-02-12 Shun Okeefe 14:15:00 [facility] PHOSPHORUS LEVEL 2022-02-12 Shun Okeefe 14:15:00 [facility] PARATHYROID HORMONE 2022-02-12 Shun Okeefe 14:15:00 [facility] PROTEIN, URINE, RANDOM 2022-02-12 Shun Okeefe 14:15:00 [facility] CREATININE LEVEL, URINE, RANDOM 2022-02-12 Shun Okeefe 14:15:00 [facility] URINALYSIS, AUTOMATED WITH 2022-02-12 Shun Okeefeo dist MICROSCOPY 14:15:00 [facility] PROTEIN, URINE, RANDOM 2022-01-30 Shun Okeefe 17:34:00 [facility] CREATININE LEVEL, URINE, RANDOM 2022-01-30 Shun Okeefe 17:34:00 [facility] URINALYSIS, AUTOMATED WITH 2022-01-30 Shun Okeefeo dist MICROSCOPY 17:34:00 [facility] CBC HEMOGRAM 2022-01-29 Ramo Angelo 16:05:00 Hospital TOTAL IRON BINDING CAPACITY 2022-01-29 Ramo Angelo Ma [facility]ima[facility] 16:05:00 Hospital FERRITIN LEVEL 2022-01-29 Ramo Angelo 16:05:00 Hospital VITAMIN B12 LEVEL 2022-01-29 Ramo Angelo 16:05:00 Hospital FOLATE LEVEL 2022-01-29 Ramo Angelo 16:05:00 Hospital CBC WITH PLATELET AND DIFFERENTIAL 2022-01-29 Shun Okeefe 05:00:00 [facility] COMPREHENSIVE METABOLIC PANEL 2022-01-29 Shun Okeefeodist 05:00:00 [facility] PHOSPHORUS LEVEL 2022-01-29 Shun Okeefe 05:00:00 [facility] PARATHYROID HORMONE 2022-01-29 Shun Okeefe 05:00:00 [facility] CBC WITH PLATELET AND DIFFERENTIAL 2021-12-13 Shun Okeefe 17:52:00 [facility] COMPREHENSIVE METABOLIC PANEL 2021-12-13 Shun Okeefe 17:52:00 [facility] PHOSPHORUS LEVEL 2021-12-13 Shun Okeefe 17:52:00 [facility] PARATHYROID HORMONE 2021-12-13 Shun Okeefe 17:52:00 [facility] PROTEIN, URINE, RANDOM 2021-12-13 Shun Okeefe 17:52:00 [facility] CREATININE LEVEL, URINE, RANDOM 2021-12-13 Shun Okeefe 17:52:00 [facility] URINALYSIS, AUTOMATED WITH 2021-12-13 Shun Okeefeo dist MICROSCOPY 17:52:00 [facility] ECG 12-LEAD 2021-09-04 Eliezer Chacon 19:07:04 Hospital URINE CULTURE 2021-08-20 Shun Okeefe 17:20:00 [facility] URINALYSIS, AUTOMATED WITH 2021-08-20 Shun Okeefeo dist MICROSCOPY 17:20:00 [facility] CBC WITH PLATELET AND DIFFERENTIAL 2021-08-20 Shun Okeefe 17:20:00 [facility] COMPREHENSIVE METABOLIC PANEL 2021-08-20 Shun Okeefe 17:20:00 [facility] URINALYSIS, COMPLETE, WITH REFLEX 2021-07-24 Shun Okeefe TO CULTURE 16:26:00 [facility] URINE PROTEIN/CREATININE RATIO, 2021-07-24 Shun Okeefe RANDOM 16:26:00 [facility] PHOSPHORUS LEVEL 2021-07-24 Shun Okeefe 16:24:00 [facility] COMPREHENSIVE METABOLIC PANEL 2021-07-24 Shun Okefeeodist 16:24:00 [facility] CBC WITH PLATELET AND DIFFERENTIAL 2021-07-24 Shun Okeefe 16:24:00 [facility] PARATHYROID HORMONE 2021-07-24 Shun Okeefe 16:24:00 [facility] Plan of Care Planned Activity Planned Date Details Comments Source Future Scheduled Test 2023-02-03 Screening for [facility] 17:15:59 malignant neoplasm of colon (procedure) [code = [id number]] Future Scheduled Test 2023-02-03 Screening for [facility] 17:15:59 malignant neoplasm of colon (procedure) [code = [id number]] Future Scheduled Test 2023-02-03 Screening for [facility] 17:15:59 malignant neoplasm of colon (procedure) [code = [id number]] Future Scheduled Test 2023-02-03 65+ PNEUMOCOCCAL [facility] 17:15:59 VACCINE (1 - PCV) [code = 65+ PNEUMOCOCCAL VACCINE (1 - PCV)] Future Scheduled Test 2023-02-03 Hepatitis C screening [facility] 17:15:59 (procedure) [code = [id number]] Future Scheduled Test 2023-02-03 BREAST CANCER [facility] 17:15:59 SCREENING [code = BREAST CANCER SCREENING] Future Scheduled Test 2023-02-03 SHINGLES VACCINES (1 [facility] 17:15:59 of 2) [code = SHINGLES VACCINES (1 of 2)] Future Scheduled Test 2023-02-03 COVID-19 VACCINE (3 - [facility] 17:15:59 Moderna series) [code = COVID-19 VACCINE (3 - Moderna series)] Future Scheduled Test 2023-02-03 GASTROSCOPY (EGD) [facility] 17:15:59 [code = GASTROSCOPY (EGD)] Future Scheduled Test 2023-02-03 INFLUENZA VACCINE [facility] 17:15:59 [code = INFLUENZA VACCINE] Future Scheduled Test 2023-02-03 Screening for [facility] 17:15:59 malignant neoplasm of colon (procedure) [code = [id number]] Future Scheduled Test 2023-02-03 Screening for [facility] 17:15:59 malignant neoplasm of colon (procedure) [code = [id number]] Future Scheduled Test 2022-05-09 HEPATITIS B VACCINES [facility] 15:22:50 (1 of 3 - 3-dose series) [code = HEPATITIS B VACCINES (1 of 3 - 3-dose series)] Future Scheduled Test 2022-05-09 65+ PNEUMOCOCCAL Me [facility] 15:22:50 VACCINE (1 - PCV) [code = 65+ PNEUMOCOCCAL VACCINE (1 - PCV)] Future Scheduled Test 2022-05-09 Hepatitis C screening [facility] 15:22:50 (procedure) [code = 115681255] Future Scheduled Test 2022-05-09 SHINGLES VACCINES (1 [facility] 15:22:50 of 2) [code = SHINGLES VACCINES (1 of 2)] Future Scheduled Test 2022-05-09 BREAST CANCER [facility] 15:22:50 SCREENING [code = BREAST CANCER SCREENING] Future Scheduled Test 2022-05-09 COVID-19 VACCINE (3 - [facility] 15:22:50 Booster for Moderna series) [code = COVID-19 VACCINE (3 - Booster for Moderna series)] Future Scheduled Test 2022-05-09 INFLUENZA VACCINE [facility] 15:22:50 [code = INFLUENZA VACCINE] Future Scheduled Test 2022-05-09 GASTROSCOPY (EGD) [facility] 15:22:50 [code = GASTROSCOPY (EGD)] Future Scheduled Test 2022-05-09 COLONOSCOPY SCREENING [facility] 15:22:50 [code = COLONOSCOPY SCREENING] Instructions E[facility] Encounters Start End Encounter Admission Attending Care Care Encounter Source Date/Time Date/Time Type Type Clinicians Facility Department ID 2023-01-20 2023-01-20 Alma Delia Chacon 1.2.840.1 [id number] Methodi 00:00:00 00:00:00 Eliezer Kitchen 66465.1.[address] 3.430.2.7 Hospit a .3.443210 l .8 2023-01-02 2023-01-02 Nathalia Paris 1.2.840.1 [id number] Methodi 00:00:00 00:00:[address] 3.430.2.7 Hospit a .3.591372 l .8 2022-12-24 2022-12-24 Office Patricia, 1.2.840.3 [id number] 42447 81199 Methodi 10:30:00 11:57:01 Visit Shun Kuhn 34969.1.1 801 s t 3.430.2.7 Hospit a .3.580061 l .8 2022-12-24 2022-12-24 Travel 1.2.840.1 1.2.385.259 6715 [id number] Methodi 00:00:00 00:00:[address] 3.430.2.7 0.2.7.3.698 Ho spita .3.640140 084.8 l .8 2022-12-24 2022-12-24 Outpatient [facility] [id number] 387 [place] 00:00:00 00:00:00 SHUN [address] 2022-11-19 2022-11-19 Office Petey 1.2.840.1 [id number] 944 [id number] Methodi 13:30:00 13:40:24 Visit Ramo 38630.1.[address] 3.430.2.7 Hospit a .3.639419 l .8 2022-11-19 2022-11-19 Travel 1.2.840.1 1.2.803.186 6873 782906 Methodi 00:00:00 00:00:[address] 3.430.2.7 0.2.7.3.698 Ho spita .3.540266 084.8 l .8 2022-11-19 2022-11-19 Outpatient [facility] 2100 [id number] [place] 00:00:00 00:00:00 RAMO [address] 2022-11-06 2022-11-06 [place] 09656.2.840.1 [id number] 79825 Methodi 14:46:44 23:59:00 Encounter Eliezer Kitchen 16544.1.[address] 3.430.2.7 Hospit a .3.706560 l .8 2022-11-06 2022-11-06 [facility], 1.2.840.1 [id number] 06105 85385 Methodi 13:25:31 14:45:00 Encounter Eliezer Kitchen 53715.1.[address] 3.430.2.7 Hospit a .3.709316 l .8 2022-11-06 2022-11-06 Outpatient [facility] [id number] 391 [place] 00:00:00 00:00:00 ELIEZER [address] 2022-11-06 2022-11-06 Outpatient [facility] [id number] 188 [place] 00:00:00 00:00:00 ELIEZER [address] 2022-11-05 2022-11-05 Travel 1.2.840.1 1.2.097.873 2236 071625 Methodi 00:00:00 00:00:[address] 3.430.2.7 0.2.7.3.698 Ho spita .3.911238 084.8 l .8 2022-10-28 2022-10-28 Travel 1.2.840.1 1.2.123.747 5606 030486 Methodi 00:00:00 00:00:[address] 3.430.2.7 0.2.7.3.698 Ho spita .3.448982 084.8 l .8 2022-10-20 2022-10-20 Outpatient FOG_Monla_Y AOSM AOSM 572 2185-20 Erika 00:00:00 00:00:00 Kelby 908119 [facility] 2022-10-15 2022-10-15 Orders Aimee, 1.2.840.1 [id number] Methodi 00:00:00 00:00:00 Only Sharlene 12073.1.[address] 3.430.2.7 Hospit a .3.773079 l .8 2022-10-08 2022-10-08 Travel 1.2.840.1 1.2.450.459 4205 677253 Methodi 00:00:00 00:00:[address] 3.430.2.7 0.2.7.3.698 Ho spita .3.540984 084.8 l .8 2022-10-08 2022-10-08 Outpatient [facility] [id number] 450 [place] 00:00:00 00:00:[address] 2022-10-01 2022-10-01 Travel 1.2.840.1 1.2.225.182 1663 349691 Methodi 00:00:00 00:00:[address] 3.430.2.7 0.2.7.3.698 Ho spita .3.504391 084.8 l .8 2022-10-01 2022-10-01 Outpatient TIFFANIE, [facility] [id number] 369 [place] 00:00:00 00:00:00 ELIEZER Georges [facility] 2022-09-15 2022-09-15 Outpatient FOG_Monla_Y AOSM AOSM 572 2185-20 Erika 00:00:00 00:00:00 Kelby 494792 [facility] 2022-09-05 2022-09-05 Alma Delia Angelo, 1.2.840.1 [id number] 338 [id number] Methodi 00:00:00 00:00:[address] 3.430.2.7 Hospit a .3.128755 l .8 2022-09-03 2022-09-03 Office Tiffanie, 1.2.840.1 [id number] 045220 0606 Methodi 11:10:00 15:29:05 Visit Eliezer Kitchen 71038.1.[address] 3.430.2.7 Hospit a .3.217732 l .8 2022-09-03 2022-09-03 Travel 1.2.840.1 1.2.605.060 3537 893067 Methodi 00:00:00 00:00:[address] 3.430.2.7 0.2.7.3.698 spita .3.703818 084.8 l .8 2022-09-03 2022-09-03 Outpatient [facility] [id number] 728 [place] 00:00:00 00:00:00 ELIEZER [address] 2022-08-29 2022-08-29 [place] M AOSM [place] - Ortho 2022 118 Erika 00:00:00 00:00:00 Gertrude Singh MD: 7401 FOG_Ofc dic [facility] [place] [address] , Ph. [phone] 2022-08-28 2022-08-28 Outpatient FOG_Monla_Y AOSM AO [address] 00:00:00 00:00:00 Kelby 072449 Orthop e dic Sports Medicin e 2022-08-28 2022-08-28 Outpatient FOG_Monla_Y AOSM AO 572 5 Erika 00:00:00 00:00:00 Kelby 507000 Orthop e dic Sports Medicin e 2022-07-12 2022-07-12 [facility] 1.2.840.1 [id number] 21 [id number] Methodi 11:22:00 23:59:00 Encounter Ramo 76828.1.[address] 3.430.2.7 Hospit a .3.504674 l .8 2022-07-12 2022-07-12 [facility] 1.2.840.1 [id number] 115 [id number] Methodi 13:00:00 13:30:[address] 3.430.2.7 Hospit a .3.152727 l .8 2022-07-12 2022-07-12 Anesthesia Kimberlyn Ramirez 1.2.840 .1 [id number] Methodi 12:55:00 13:24:00 Event Bettye Corrales 10786.1.[address] 3.430.2.7 Hospit a .3.981212 l .8 2022-07-12 2022-07-12 [facility] 2099 689160 [place] 00:00:00 00:00:00 RAMO [address] 2022-07-11 2022-07-11 [facility] Keithlauritajerri, 1.2.840.1 [id number] 518 9380127 Methodi 13:25:00 13:30:[address] 3.430.2.7 Hospit a .3.808898 l .8 2022-07-11 2022-07-11 [facility] 1.2.840.1 1.2.317.842 1262 150646 Methodi 00:00:00 00:00:[address] 3.430.2.7 0.2.7.3.698 Ho spita .3.261379 084.8 l .8 2022-07-11 2022-07-11 [facility] Bobbyjerri 1.2.840.1 [id number] 028 0294828 Methodi 00:00:00 00:00:00 Only Ramo 30241.1.[address] 3.430.2.7 Hospit a .3.665026 l .8 2022-07-11 2022-07-11 Outpatient [facility] 2100 [id number] [place] 00:00:00 00:00:00 RAMO [address] 2022-07-10 2022-07-10 Telephone Chacon, 1.2.840.1 [id number] 2099 855226 Methodi 00:00:00 00:00:00 Eliezer Kitchen 84502.1.[address] 3.430.2.7 Hospit a .3.236527 l .8 2022-06-27 2022-06-27 Outpatient FOG_Monla_Y AOSM AOSM 572 2185-20 Erika 00:00:00 00:00:00 Kelby 764042 Orthop e dic Sports Medicin e 2022-06-19 2022-06-19 Office Patricia, 1.2.840.0 [id number] 24423 14523 Methodi 10:00:00 10:30:54 Visit Shun Kuhn 63326.1.1 615 s t 3.430.2.7 Hospit a .3.049498 l .8 2022-06-19 2022-06-19 Travel 1.2.840.1 1.2.116.135 6054 306574 Methodi 00:00:00 00:00:[address] 3.430.2.7 0.2.7.3.698 Ho spita .3.503480 084.8 l .8 2022-06-19 2022-06-19 Outpatient [facility] [id number] 748 [place] 00:00:00 00:00:00 SHUN Morgan [facility] 2022-06-13 2022-06-13 Telephone Kaylee, 1.2.840.1 [id number] 2099 538868 Methodi 00:00:00 00:00:[address] 3.430.2.7 Hospit a .3.895032 l .8 2022-06-13 2022-06-13 Orders Terrence, 1.2.840.1 [id number] 910913 1842 Methodi 00:00:00 00:00:00 Only Jelena 99241.1.[address] 3.430.2.7 Hospit a .3.426301 l .8 2022-06-12 2022-06-12 Office Erick, 1.2.840.1 [id number] 26729 67957 Methodi 08:30:00 11:22:08 Visit Juno Robledo 00524.1.[address] 3.430.2.7 Hospit a .3.368216 l .8 2022-06-12 2022-06-12 Travel 1.2.840.1 1.2.097.487 1495 483250 Methodi 00:00:00 00:00:[address] 3.430.2.7 0.2.7.3.698 Ho spita .3.694650 084.8 l .8 2022-06-12 2022-06-12 Outpatient [facility] [id number] [address] [place] [address] 00:00:00 00:00:[address] 2022-05-27 2022-05-27 Outpatient FOG_Monla_Y AOSM AOSM 572 2185- Erika 00:00:00 00:00:00 Kelby 455225 Orthop [facility] Medic[facility] e 2022-05-27 2022-05-27 Alvarado Y AOSM [place] - Ortho [id number] Erika 00:00:00 00:00:00 MD Kunal: Gertrude valle [address] FOG_Ofc dic [facility] S[facility] [place] [address] , Ph. [phone] 2022-05-23 2022-05-23 Outpatient FOG_Monla_Y AOSM AOSM 572 2185- Erika 00:00:00 00:00:00 Kelby 020133 Orthop e dic Sports Medicin e 2022-05-22 2022-05-22 Outpatient FOG_Monla_Y AOSM AOSM 572 2185- Erika 00:00:00 00:00:00 Kelby 737085 Orthop e dic Sports Medicin e 2022-05-14 2022-05-14 Outpatient EL Alvarado Syed HCATO SURG Y000 870255 [facility] 05:49:00 05:49:00 [facility] 2022-05-14 2022-05-14 Outpatient FOG_Monla_Y AOSM AOSM 572 2185-20 Erika 00:00:00 00:00:00 Kelby 747341 Orthop e dic Sports Medicin e 2022-05-14 2022-05-14 Alvarado Y AOSM [place] - Orth[place] [id number] 4 Erika 00:00:00 00:00:00 MD Kunal: Gertrude valle [address] [facility] [place] [address] , Ph. [phone] 2022-05-10 2022-05-10 Outpatient FOG_Monla_Y AOSM AOSM 572 2185-20 Erika 00:00:00 00:00:00 Kelby 880674 Orthop e dic Sports Medicin e 2022-05-06 2022-05-06 Telephone Tiffanie, 1.2.840.1 [id number] 2099 614200 Methodi 00:00:00 00:00:00 Eliezer Kitchen 54445.1.[address] 3.430.2.7 Hospit a .3.547331 l .8 2022-05-06 2022-05-06 Telephone Tiffanie, 1.2.840.1 [id number] 2099199 Methodi 00:00:00 00:00:00 Eliezer Kitchen 05087.1.[address] 3.430.2.7 Hospit a .3.185739 l .8 2022-05-04 2022-05-04 Outpatient FOG_Monla_Y AOSM AO 572 5 Erika 00:00:00 00:00:00 Kelby 802980 Orthop e dic Sports Medicin e 2022-05-02 2022-05-02 Refletty Angelo, 1.2.840.1 [id number] 762 2346690 Methodi 00:00:00 00:00:[address] 3.430.2.7 Hospit a .3.049699 l .8 2022-05-02 2022-05-02 Alma Delia Angelo 1.2.840.1 [id number] 407 8990381 Methodi 00:00:00 00:00:[address] 3.430.2.7 Hospit a .3.094492 l .8 2022-04-29 2022-04-29 Outpatient FOG_Monla_Y AOSM AOSM 572 5-20 Erika 00:00:00 00:00:00 Kelby 120429 Orthop e dic Sports Medicin e 2022-04-29 2022-04-29 Alvarado Y AOSM [place] - Ortho [id number] Erika 00:00:00 00:00:00 MD Kunal: Gertrude Chamberlain rthope [address] FOG_Ofc dic St, [facility] Spor [facility], [place] [address] , Ph. [phone] 2022-04-26 2022-04-26 Outpatient FOG_Monla_Y AOSM AOSM 572 2185-20 Erika 00:00:00 00:00:00 Kelby 872689 Orthop e dic Sports Medicin e 2022-04-24 2022-04-24 Telephone Terrence, 1.2.840.1 [id number] 2099 985600 Methodi 00:00:00 00:00:[address] 3.430.2.7 Hospit a .3.862380 l .8 2022-04-24 2022-04-24 Telephone Terrence, 1.2.840.1 [id number] 2099 047576 Methodi 00:00:00 00:00:[address] 3.430.2.7 Hospit a .3.355791 l .8 2022-04-04 2022-04-04 Outpatient FOG_Monla_Y AOSM AOSM 572 2185- Erika 00:00:00 00:00:00 Kelby 647284 Orthop e dic Sports Medicin e 2022-04-04 2022-04-04 Outpatient DANIELLA Mclaughlin AOSM 4x784x2 4-2 00:00:00 00:00:00 Danyel Burden 48a-11ed-a [id number] dbe64a 2022-04-04 2022-04-04 Outpatient Kunal Alvarado AOSM AOSM 6006 86a4-2 00:00:00 00:00:00 Y 497-11ed-b [id number] dbe64a 2022-04-04 2022-04-04 Danyel Burden AOSM [place] - Orth[place] 66875 825 Erika 00:00:00 00:00:00 Gertrude Mclaughlin MD: 7401 FOG_Ofc dic [facility], [place] [address] , Ph. [phone] 2022-04-01 2022-04-01 Outpatient FOG_Monla_Y AOSM AOSM 572 2185-20 Erika 00:00:00 00:00:00 Kelby 345788 Orthop e dic Sports Medicin e 2022-03-06 2022-03-06 Outpatient FOG_Monla_Y AOSM AOSM 572 2185-20 Erika 00:00:00 00:00:00 Kelby 598109 Orthop e dic Sports Medicin e 2022-03-05 2022-03-05 Outpatient FOG_Monla_Y AOSM AOSM 572 2185-20 Erika 01:51:00 01:51:00 Kelby 670980 Orthop e dic Sports Medicin e 2022-03-05 2022-03-05 Outpatient Monla, AOSM AOSM [id number] e-1 00:00:00 00:00:00 Yomna T ff2-11ed-8 [id number] 61cb42 2022-03-05 2022-03-05 Outpatient Monla, AOSM AOSM 59lbx7y 4-2 00:00:00 00:00:00 Yomna T 0be-11ed-8 [id number] ciw414 2022-03-05 2022-03-05 Yomna T AOSM [place] - Ortho [id number] Erika 00:00:00 00:00:00 MD Jodie: Gertrude Edmond - Orthope [address] FOG_Ofc dic [facility] Spor [facility], [place] [address] , Ph. [phone] 2022-02-26 2022-02-26 Telephone Raina, 1.2.840.1 [id number] 937 9643421 Methodi 00:00:00 00:00:[address] 3.430.2.7 Hospit a .3.387508 l .8 2022-02-26 2022-02-26 Telephone Raina, 1.2.840.1 [id number] 478 8441359 Methodi 00:00:00 00:00:[address] 3.430.2.7 Hospit a .3.940238 l .8 2022-02-14 2022-02-14 Alma Delia Jackson, 1.2.840.1 [id number] 866 5482570 Methodi 00:00:00 00:00:[address] 3.430.2.7 Hospit a .3.244486 l .8 2022-02-14 2022-02-14 Refill Renetta, 1.2.840.1 [id number] 066 3277259 Methodi 00:00:00 00:00:[address] 3.430.2.7 Hospit a .3.294494 l .8 2022-02-13 2022-02-13 Refill Renetta, 1.2.840.1 [id number] 661 4309217 Methodi 00:00:00 00:00:[address] 3.430.2.7 Hospit a .3.694067 l .8 2022-02-13 2022-02-13 Refletty Jackson, 1.2.840.1 [id number] 455 8558477 Methodi 00:00:00 00:00:[address] 3.430.2.7 Hospit a .3.196983 l .8 2022-02-12 2022-02-12 Refill Renetta, 1.2.840.1 [id number] 996 8879391 Methodi 00:00:00 00:00:[address] 3.430.2.7 Hospit a .3.277333 l .8 2022-02-12 2022-02-12 Nathalia Chacon, 1.2.840.1 [id number] 2100 042511 Methodi 00:00:00 00:00:[address] 3.430.2.7 Hospit a .3.028039 l .8 2022-02-12 2022-02-12 Refletty Jackson, 1.2.840.1 [id number] 001 7096263 Methodi 00:00:00 00:00:[address] 3.430.2.7 Hospit a .3.569872 l .8 2022-02-12 2022-02-12 Telephone Tiffanie, 1.2.840.1 [id number] 2100 905574 Methodi 00:00:00 00:00:00 Eliezer Kitchen 67815.1.[address] 3.430.2.7 Hospit a .3.655510 l .8 2022-02-07 2022-02-07 Refill Renetta, 1.2.840.1 [id number] 503 8665058 Methodi 00:00:00 00:00:[address] 3.430.2.7 Hospit a .3.487753 l .8 2022-02-07 2022-02-07 Refill Renetta, 1.2.840.1 [id number] 297 6262957 Methodi 00:00:00 00:00:[address] 3.430.2.7 Hospit a .3.288926 l .8 2022-02-04 2022-02-04 Orders Wenceslao Bustamante 1.2.840.1 [id number] 2100 611090 Methodi 00:00:00 00:00:[address] 3.430.2.7 Hospit a .3.868889 l .8 2022-02-04 2022-02-04 Orders Wenceslao Bustamante 1.2.840.1 [id number] 2099 201104 Methodi 00:00:00 00:00:[address] 3.430.2.7 Hospit a .3.209251 l .8 2022-01-25 2022-01-25 Telephone Tiffanie, 1.2.840.1 [id number] 2100 109030 Methodi 00:00:00 00:00:00 Eliezer Kitchen 20950.1.[address] 3.430.2.7 Hospit a .3.748061 l .8 2022-01-24 2022-01-24 Telephone Petey, 1.2.840.1 [id number] 2 [id number] Methodi 00:00:00 00:00:[address] 3.430.2.7 Hospit a .3.520642 l .8 2022-01-23 2022-01-23 Office Petey, 1.2.840.1 [id number] 679 9795692 Methodi 15:00:00 15:00:00 Visit Ramo 48067.1.[address] 3.430.2.7 Hospit a .3.659982 l .8 2022-01-23 2022-01-23 Travel 1.2.840.1 1.2.132.755 6282 278538 Methodi 00:00:00 00:00:[address] 3.430.2.7 0.2.7.3.698 Ho spita .3.946692 084.8 l .8 2022-01-16 2022-01-16 Outpatient FOG_Monla_Y AOSM AOSM 572 2185-20 Erika 08:38:00 08:38:00 omnDale 518870 Orthop e dic Sports Medicin e 2022-01-16 2022-01-16 Outpatient FOG_Monla_Y AOSM AOSM 572 2185-20 Erika 08:38:00 08:38:00 omnDale 870173 Orthop e dic Sports Medicin e 2021-12-20 2021-12-20 Refill Petey, 1.2.840.1 [id number] 338 [id number] Methodi 00:00:00 00:00:[address] 3.430.2.7 Hospit a .3.713164 l .8 2021-12-17 2021-12-17 Office Patricia, 1.2.840.7 [id number] 14093 52789 Methodi 11:15:00 11:43:03 Visit Shun Kuhn 48667.1.1 499 s t 3.430.2.7 Hospit a .3.016093 l .8 2021-12-17 2021-12-17 Telephone Terrence, 1.2.840.1 [id number] 2[address]8567 Methodi 00:00:00 00:00:[address] 3.430.2.7 Hospit a .3.083991 l .8 2021-12-17 2021-12-17 Travel 1.2.840.1 1.2.913.517 2746 341195 Methodi 00:00:00 00:00:[address] 3.430.2.7 0.2.7.3.698 Ho spita .3.263944 084.8 l .8 2021-12-14 2021-12-14 Telephone Petey, 1.2.840.1 [id number] 2 [id number] Methodi 00:00:00 00:00:[address] 3.430.2.7 Hospit a .3.123866 l .8 2021-10-22 2021-10-22 Telephone Derek, 1.2.840.0 [id number] 2 [id number] Methodi 00:00:00 00:00:00 [address].1.[address] 3.430.2.7 Hospit a .3.043345 l .8 2021-09-17 2021-09-17 Office Patricia, 1.2.840.8 [id number] 25375 28866 Methodi 11:15:00 13:51:18 Visit Shun Kuhn 34682.1.1 286 s t 3.430.2.7 Hospit a .3.396396 l .8 2021-09-04 2021-09-04 Office Tiffanie, 1.2.840.1 [id number] 602725 9728 Methodi 13:15:00 16:52:48 Visit Eliezer Kitchen 42298.1.[address] 3.430.2.7 Hospit a .3.794889 l .8 2021-09-04 2021-09-04 Travel 1.2.840.1 1.2.206.145 2279 369000 Methodi 00:00:00 00:00:[address] 3.430.2.7 0.2.7.3.698 Ho jorge .3.783309 084.8 l .8 2021-08-21 2021-08-22 Office Patricia, 1.2.840.1 [id number] 96246 91712 Methodi 12:30:00 08:40:11 Visit Shun Kuhn 48618.1.1 355 s t 3.430.2.7 Hospit a .3.576310 l .8 2021-08-14 2021-08-14 Refill Tiffanie, 1.2.840.1 [id number] 161767 3866 Methodi 00:00:00 00:00:00 Elie[address] KunalJacqueline [address]702.[address] 3.430.2.7 Hospit a .3.118419 l .8 2021-08-14 2021-08-14 Orders Riki, 1.2.840.9 [id number] Methodi 00:00:00 00:00:00 Only Cynthia Moise 15955.1.[address] 3.430.2.7 Hospit a .3.950608 l .8 2021-07-24 2021-07-24 Orders Patricia, 1.2.840.1 [id number] 643555 5375 Methodi 00:00:00 00:00:00 Only Shun Kuhn 79699.1.1 692 s t 3.430.2.7 Hospit a .3.083507 l .8 2021-07-24 2021-07-24 Orders Patricia, 1.2.840.1 [id number] Methodi 00:00:00 00:00:00 Only Shun Kuhn 38102.1.1 651 s t 3.430.2.7 Hospit a .3.586868 l .8 2021-06-12 2021-06-12 Refill Riki, 1.2.840.1 [id number] Methodi 00:00:00 00:00:00 Cynthia E [address]73.1.[address] 3.430.2.7 Hospit a .3.747657 l .8 2021-06-08 2021-06-08 Refill Patricia, 1.2.840.8 [id number] 04083 Methodi 00:00:00 00:00:00 Shun Kuhn 17632.1.1 105 s t 3.430.2.7 Hospit a .3.012136 l .8 2021-05-17 2021-05-17 Orders Terrence, 1.2.840.1 [id number] Methodi 00:00:00 00:00:00 Only Jelena [address]503.1.[address] 3.430.2.7 Hospit a .3.772373 l .8 2021-05-07 2021-05-07 Outpatient PETEY, [facility] 021 [id number] [place] 00:00:00 00:00:00 RAMO 888 Method i 2021 2021 Outpatient PETEY, [facility] 2100 [id number] [place] 00:00:00 00:00:00 RAMO 509 Method i 2021-03-14 2021-03-14 Outpatient YAQUELIN, [facility] [id number] [place] 00:00:00 00:00:00 NADIM 615 Method i 2021-03-12 2021-03-12 Outpatient OKEEFE, [facility] [id number] [place] 00:00:00 00:00:00 SHUN 891 Method i 2020-09-21 2020-09-21 Outpatient PETEY, [facility] 2100 [id number] [place] 00:00:00 00:00:00 RAMO 152 Method i 2020-09-05 2020-09-05 Outpatient TIFFANIE, [facility] [id number] [place] 00:00:00 00:00:00 ELIEZER 464 Method i 2020-06-06 2020-06-06 Outpatient PETEY, [facility] 2100 [id number] [place] 00:00:00 00:00:00 RAMO 710 Method i 2020-04-12 2020-04-12 Outpatient PETEY, [facility] 2100 [id number] [place] 00:00:00 00:00:00 RAMO 364 Method i 2020-04-10 2020-04-10 Outpatient PETEY, [facility] 2100 [id number] [place] 00:00:00 00:00:00 RAMO 294 Method i 2019-10-14 2019-10-14 Outpatient JUAN MIGUEL [facility]OUDHARY [facility] 021 [id number] [place] 00:00:00 00:00:[address] 2019-09-08 2019-09-08 Outpatient PETEY [facility] 021 [id number] [id number] [place] 00:00:00 00:00:00 RAMO [address] 2019-06-16 2019-06-16 Outpatient PETEY [facility] 2100 [id number] [place] 00:00:00 00:00:00 RAMO [address] 2019-04-08 2019-04-14 Outpatient NICK Clements 3DAY [id number] [facility] 15:48:00 23:00:00 [place] [address] [facility] 2016-01-24 2016-01-24 Outpatient YAQUELIN [facility] [id number] 618 [place] 00:00:00 00:00:00 NADIM [address] Results Test Description Test Time Test Comments Results Result Comments Source POC creatinine 2022-11-06 20:42:00 Test Item Value Reference Range Interpretation Comme nts POC creatinine (test code = 1.3 mg/dl 0.5-0.9 H Tub Wash Operator Name: Liudmila Martinez [id number]) EmmarieDevice I D: [id number] Lab Interpretation (test code = Abnormal 69964-3) [id number] 20:42:00 Test Item Value Reference Range Interpretation Comments Estimated GFR (test 41 mL/min/1.73 m2 Rosalio stanley Units code = 40222-6) Interpretati onG1 >=90 Normal or highG 2 60-89 Mildly decrease dG3a 45-59 Mildly to moderately decr upxsqV8a 30-44 Moderatel y to severely decrea sedG4 15-29 Severely decreasedG5 <15 Kidney failureThe eGFR was calculated usin g the Chronic Kidney Disease Epidemiology Collaboration ( CKD-EPI) equation. Interpretation is based on recommendati ons of the National Ki dney Foundation-Kidn ey Disease Outcome s Quality Initiat souleymane (NKF-KDOQI) pub lished in 2013. Lab Interpretation Abnormal (test code = 65600-2) [facility] [id number] 22:18:00 Test Item Value Reference Range Interpretation Comments Glucose (test code = 150 mg/dL 65-99 H Fastin g 2345-7) reference interval For someone without known diabetes, a glucosevalue >1 25 mg/dL indicates that they may havediabetes an d this should be confirmed with afollow-up test . BUN (test code = 28 mg/dL 7-25 H 3094-0) Creatinine (test 1.04 mg/dL 0.60-1.00 H code = 2160-0) eGFR (test code = 57 See_Comment L The eGFR i s based 55531-9) on the CKD-EPI 2020 equation. To calculate the n ew eGFR from a previous Creatinine or Cystatin Cresul t, go to [email or web address] y.org/[email or web address] [email or web address]/kdoqi/[email or web address] ca lculator [Automated message] The system which generated this result transmitted reference range : > OR = 60 mL/min/1.73m2. The reference range was not used to interpr et this result as normal/abnormal . BUN/creatinine ratio 27 See_Comment H [Autom ated (test code = 3097-3) message ] The system which generated this result transmitted reference range : 6 - 22 (calc). The reference range was not used to interpr et this result as normal/abnormal . Sodium (test code = 142 mmol/L 013-585 2631-2) Potassium (test code 3.9 mmol/L 3.5-5.3 = 2823-3) Chloride (test code 105 mmol/L 98-110 = 2075-0) CO2 (test code = 31 mmol/L 20-32 2027-9) Calcium (test code = 10.8 mg/dL 8.6-10.4 H 61764-3) Protein (test code = 6.4 g/dL 6.1-8.1 2885-2) Albumin, S (test 4.0 g/dL 3.6-5.1 code = 1751-7) Globulin, total 2.4 See_Comment [Automated (test code = message] The 90626-4) system which generated this result transmitted reference range : 1.9 - 3.7 g/dL (calc). The reference range was not used to interpret this result as normal/abnormal . Albumin/globulin 1.7 See_Comment [Automated ratio (test code = message] The 1759-0) system which generated this result transmitted reference range : 1.0 - 2.5 (calc ). The reference range was not used to interpr et this result as normal/abnormal . Total bilirubin 0.5 mg/dL 0.2-1.2 (test code = 1974-2) Alkaline phosphatase 92 U/L 37-153 (test code = 6768-6) AST (test code = 59 U/L 10-35 H 1920-8) ALT (test code = 24 U/L 6-29 1742-6) CATIE (test code = FASTING:YES CATIE) FASTING: YES RAC (test code = Performing RAC) Organization Information: Site ID: [facility] Name: [facility] Address: [address] [place] [phone] Director: Anthony Parker Lab Interpretation Abnormal (test code = 38639-8) [facility] Rock[facility]athy[facility] [id number] 22:18:00 Test Item Value Reference Interpretation Comments Range PTH (test 69 pg/mL 16-77 Interpretive G uide Intact code = PTH Calcium---- 2731-8) ---- ---Normal Parathyroid Nor mal NormalHypoparat hyroidism Low or Low Normal LowHyperparathy roidism Primary Normal or High High Secondary High Normal or Low Tertiary High HighNon-Parathy roid Hypercalcemia L ow or Low Normal High CATIE (test FASTING:YES code = FASTING: YES CATIE) RAC (test Performing code = Organization RAC) Information: Site ID: A Name: [facility] Address: [address] [place] [phone] Director: Anthony Parker [facility] RockPhosphorus [id number] 22:18:00 Test Item Value Reference Range Interpretation Comments Phosphorus (test code 3.6 mg/dL 2.1-4.3 = 2777-1) CATIE (test code = CATIE) FASTING:YES FASTING: YES RAC (test code = RAC) Performing Organization Information: Site ID: [facility] Name: [facility] Address: [address] [place] [phone] Director: Anthony L [facility]inal[facility], automated with [id number] 22:18:00 Test Item Value Reference Range Interpretation Comments Color, UA (test code YELLOW YELLOW = 5778-6) Appearance (test CLOUDY CLEAR A code = 5767-9) Specific gravity, 1.012 1.001-1.035 urine (test code = 5811-5) pH, urine (test code 5.5 5.0-8.0 = 5803-2) Glucose, urine (test NEGATIVE NEGATIVE code = 26272-7) Bilirubin, UA (test NEGATIVE NEGATIVE code = 5770-3) Ketones, UA (test NEGATIVE NEGATIVE code = 2514-8) Occult blood, urine 3+ NEGATIVE A (test code = 5794-3) Protein, UA (test NEGATIVE NEGATIVE code = 77190-8) Nitrite, UA (test POSITIVE NEGATIVE A code = 5802-4) Leukocyte esterase, TRACE NEGATIVE A UA (test code = 5799-2) WBC, UA (test code = 0-5 See_Comment [Autom ated 5821-4) message] The system which generated this result transmitted reference range : < OR = 5 /HPF. The reference range was not used to interpr et this result as normal/abnormal . RBC, UA (test code = 3-10 See_Comment A [Autom ated 36941-4) message] The system which generated this result transmitted reference range : < OR = 2 /HPF. The reference range was not used to interpr et this result as normal/abnormal . Squamous epithelial 0-5 See_Comment [Automa fatoumata cells, UA (test code message ] The = 62762-1) system which generated this result transmitted reference range : < OR = 5 /HPF. The reference range was not used to interpr et this result as normal/abnormal . Bacteria, UA (test MANY NONE SEEN /HPF A code = 5769-5) Calcium oxalate FEW NONE OR FEW crystals, UA (test /HPF code = 44570-7) Hyaline casts, UA NONE SEEN NONE SEEN /LPF (test code = 5796-8) Note: (test code = This urin e was 8251-1) analyzed for th e presence of WBC , RBC, bacteria, casts, and othe r formed elements . Only those elements seen were reported. CATIE (test code = FASTING:YES CATIE) FASTING: YES RAC (test code = Performing RAC) Organization Information: Site ID: [facility] Name: [facility] Lab Address: [address] [place] [address] Director: Anthony Parker Lab Interpretation Abnormal (test code = 88712-7) [facility] RockCreatinine level, urine, [id number] 22:18:00 Test Item Value Reference Range Interpretation Comments Creatinine, urine 38 mg/dL 20-275 (mg/dL) (test code = 2161-8) CATIE (test code = FASTING:YES FASTING: YES CATIE) RAC (test code = Performing Organization RAC) Information: Site ID: [facility] Name: [facility] Address: [address] [place] [address] Director: Anthony Parker [facility] RockProtein, urine, [id number] 22:18:00 Test Item Value Reference Range Interpretation Comments Protein, urine 9 mg/dL 5-24 random (test code = 2888-6) CATIE (test code = FASTING:YES FASTING: YES CATIE) RAC (test code = Performing Organization RAC) Information: Site ID: [facility] Name: [facility] Lab Address: [address] [place] [address] Director: Anthony Parker [facility] [id number] 19:41:28 Test Item Value Reference Range Interpretation Comments Case number (test code = [id number]) Surgical pathology See link below for report (test code = PDF Lab Report 2255) Result status (test code This is Final Report = [id number]) for [id number] [facility] [id number] 19:27:00 Test Item Value Reference Range Interpretation Comments POC glucose (test code 150 mg/dL 65-99 H Opera reuben Name: Clint = 03816-6) Tila ID: [id number] able: [facility] 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 Negativeresults must be combined with clinical observations, patient history, andepidemiological information. COVID-19 Not-Detected Not-Detected DISCLAIMER:This qualitative RT-PCR test was result (test code performed using = 33303-0) the Med greco SARS-CoV-2 Assa bernadine ([employer]). This assay is available for i n vitro diagnosti c use under Food and Drug Administration (FDA) Emergency Use Authorizati on (EUA) and has been verified f or clinical use by the [facility]. Information on the FDA policy for diagnostic tests for coronavirus disease- 2019 i s available at:https://www. fd a.gov/medical-d ev ices/emergency- si tuations-medica l- devices/faqs-di ag nostic-testing- sa rs-cov-2It is critical that health care providers and patients review the applicable fact sheet(s) i n interpreting or understanding t he test results th at are available upon request.METHODO LO GY:This assay utilizes reagen ts for nucleic aci d extraction, amplification, and real-time reverse client experience specialist polymerase mireille n reaction. COVID-19 See link below for PDF Case Number: qualitative RT-PCR Lab Report [id number] PDF (test code = 7070) [facility] RNA [Presence] in Respiratory specimen by DOUG with probe [id number] 18:30:27 Test Item Value Reference Range Interpretation Comments SARS-CoV-2 (COVID-19) RNA Not detected [Presence] in Respiratory specimen by DOUG with probe detection (test code = 93254-2) Whether patient is employed in a Unknown healthcare setting (test code = 19423-8) Whether the patient has symptoms Unknown related to condition of interest (test code = 84934-8) Whether the patient was Unknown hospitalized for condition of interest (test code = 58529-7) Whether the patient was admitted Unknown to intensive care unit (ICU) for condition of interest (test code = 24711-1) Whether patient resides in a Unknown congregate care setting (test code = 25296-5) status (test code = Unknown 00176-9) Date and time of symptom onset Unknown (test code = 72579-8) CATALINO ROMAN CATHOLIC [id number] 06:48:00 Test Item Value Reference Range Interpretation Comments GLUBED (test code = GLUBED) 131 mg/dL 60-125 H [id number] 06:34:00 Test Item Value Reference Range Interpretation Comments glubed (test code = glubed) 131 mg/dL 60-125 H performing lab: (test code = performing lab:) [facility] 06:34:00 Test Item Value Reference Range Interpretation Comments glubed (test code = glubed) 131 mg/dL 60-125 H performing lab: (test code = performing lab:) [facility] HospitalCOMPREHENSIVE METABOLIC [id number] 18:56:00 Test Item Value Reference Range Interpretation Comments SODIUM (test code = 144 mmol/L 136-145 N NA) POTASSIUM (test code = 3.7 mmol/L 3.5-5.1 N K) CHLORIDE (test code = 104.0 mmol/L 98-107 N CL) CARBON DIOXIDE (test 27.5 mmol/L 21-32 N code = CO2) GLUCOSE (test code = 123 mg/dL 70-110 H GLU) BLOOD UREA NITROGEN 29 mg/dL 7-18 H (test code = BUN) GLOMERULAR FILTRATION 38.9 >60 Unit o f measure: RATE (test code = GFR) mL/mi n/1.73 [id number] Range:Healthy Adults >90 mL/min/1.73 m2 For Chronic Kidney Disease: Stage II Mild Decrease i n GFR 60-90 Stage III Moderate Decrea se in GFR 30-59 St age IV Severe Decre ase in GFR 15-29 St age V Kidney Failur e <15 CREATININE (test code 1.34 mg/dL 0.55-1.30 H = CREAT) TOTAL PROTEIN (test 7.1 g/dL 6.4-8.2 N code = PROT) ALBUMIN (test code = 3.7 g/dL 3.4-5.0 N ALB) GLOBULIN (test code = 3.4 g/dL 2.2-4.2 N GLOB) ALBUMIN/GLOBULIN RATIO 1.1 0.7-2.0 N (test code = A/G) CALCIUM (test code = 9.4 mg/dL 8.2-10.1 N CA) BILIRUBIN TOTAL (test 0.30 mg/dL 0.2-1.00 N code = BILT) SGOT/AST (test code = 75.0 U/L 15-37 H AST) SGPT/ALT (test code = 33.0 U/L 12-78 N Please note new ALT) normal range. ALKALINE PHOSPHATASE 86 U/L 46-116 N TOTAL (test code = ALKP) Comprehensive metabolic [id number] 19:50:00 Test Item Value Reference Interpretation Comments Range Glucose (test code 130 mg/dL 65-99 H Fasting reference = 2345-7) interval For so meone without known diabetes, a glucosevalue >1 25 mg/dL indicates that they may havediabetes an d this should be confirmed with afollow-up test . BUN (test code = 24 mg/dL 03-04 3094-0) Creatinine (test 1.25 mg/dL 0.6-0.93 H For patient s >49 code = 2160-0) years of age, the reference limit for Creatinine is approximately 1 3% higher for peopleidentifie d as -Cindy n. EGFR Non-Afr. See_Comment L [Automated me ssage] Senegalese (test code The syst em which = 6415) generated this result transmit fatoumata reference range : > OR = 60 mL/min/1.73m2. The reference range was not used to interpret this result as normal/abnormal . EGFR See_Comment L [Automated mes tamera] Senegalese (test code The syst em which = 2774) generated this result transmit fatoumata reference range : > OR = 60 mL/min/1.73m2. The reference range was not used to interpret this result as normal/abnormal . BUN/creatinine See_Comment [Automated m essage] ratio (test code = The syste m which 3097-3) generated this result transmit fatoumata reference range : 6 - 22 (calc). The reference range was not used to interpret this result as normal/abnormal . Sodium (test code = 140 mmol/L 875-064 5380-2) Potassium (test 4.1 mmol/L 3.5-5.3 code = 2823-3) Chloride (test code 108 mmol/L 98-110 = 5-0) CO2 (test code = 24 mmol/L 20-32 2027-9) Calcium (test code 9.6 mg/dL 8.6-10.4 = 61925-9) Protein (test code 6.1 g/dL 6.1-8.1 = 2885-2) Albumin, S (test 3.8 g/dL 3.6-5.1 code = 1751-7) Globulin, total See_Comment [Automated message] (test code = [place] 93723-0) generated this result transmit fatoumata reference range : 1.9 - 3.7 g/dL (jeannie c). The reference r chandrika was not used to interpret this result as normal/abnormal . Albumin/globulin See_Comment [Automated message] ratio (test code = The syste m which 1758-0) generated this result transmit fatoumata reference range : 1.0 - 2.5 (calc). T he reference range was not used to interpret this result as normal/abnormal . Total bilirubin 0.4 mg/dL 0.2-1.2 (test code = 1975-2) Alkaline 59 U/L 37-153 phosphatase (test code = 6768-6) AST (test code = 34 U/L 10-35 1920-8) ALT (test code = 15 U/L - 174-6) RAC (test code = Performing RAC) Organization Information: Site ID: ROGERSA Name: [facility] Address: [address] [place] [phone] Director: Anthony Parker Lab Interpretation Abnormal (test code = 85888-7) [facility] [id number] 19:50:00 Test Item Value Reference Interpretation Comments Range PTH (test 48 pg/mL 16-77 Interpretive G uide Intact code = PTH Calcium---- 2731-8) ---- ---Normal Parathyroid No rmal NormalHypoparat hyroidism Low or Low Normal LowHyperparathy roidism Primary Normal or High High Secondary High Normal or Low Tertiary High HighNon-Parathy roid Hypercalcemia L ow or Low Normal High RAC (test Performing code = Organization RAC) Information: Site ID: [facility] Name: [facility] Address: [address] [place] [phone] Director: [facility] [id number] 19:50:00 Test Item Value Reference Range Interpretation Comments Phosphorus (test code 3.2 mg/dL 2.1-4.3 = 2777-1) RAC (test code = RAC) Performing Organization Information: Site ID: RGA Name: [facility] Lab Address: [address] [place] [phone] Director: [facility] with platelet and [id number] 19:50:00 Test Item Value Reference Range Interpretation Comments WBC (test code = See_Comment [Automated 6690-2) message] The system which generated this result transmitted reference range : 3.8 - 10.8 Thousand/uL. Th e reference range was not used to interpret this result as normal/abnormal . RBC (test code = See_Comment L [Automated 659-8) message] The system which generated this result transmitted reference range : 3.80 - 5.10 Million/uL. The reference range was not used to interpret this result as normal/abnormal . HGB (test code = 7.9 g/dL 11.7-15.5 L 718-7) HCT (test code = 27.5 % 35-45 L 4544-3) MCV (test code = 77.0 fL 80-100 L 787-2) MCH (test code = 22.1 pg 27-33 L 785-6) MCHC (test code = 28.7 g/dL 32-36 L 786-4) RDW (test code = 15.5 % 11-15 H 788-0) Platelet count (test See_Comment [Autom ated code = 777-3) message] The system which generated this result transmitted reference range : 140 - 400 Thousand/uL. Th e reference range was not used to interpret this result as normal/abnormal . MPV (test code = 10.1 fL 7.5-12.5 776-5) Neutrophils, See_Comment [Automated absolute (test code message] The = 751-8) system which generated this result transmitted reference range : 1,500 - 7,800 cells/uL. The reference range was not used to interpret this result as normal/abnormal . Lymphocytes, See_Comment [Automated absolute (test code message] The = 731-0) system which generated this result transmitted reference range : 850 - 3,900 cells/uL. The reference range was not used to interpret this result as normal/abnormal . Monocytes, absolute See_Comment [Automa fatoumata (test code = 742-7) message] The system which generated this result transmitted reference range : 200 - 950 cells/uL. The reference range was not used to interpret this result as normal/abnormal . Eosinophils, See_Comment [Automated absolute (test code message] The = 711-2) system which generated this result transmitted reference range : 15 - 500 cells/uL. The reference range was not used to interpret this result as normal/abnormal . Basophils, absolute See_Comment [Automa fatoumata (test code = 704-7) message] The system which generated this result transmitted reference range : 0 - 200 cells/u L. The reference range was not used to interpr et this result as normal/abnormal . Neutrophils (test 69.1 % code = 770-8) Lymphocytes (test 18.8 % code = 736-9) Monocytes (test code 8.6 % = 5905-5) Eosinophils (test 2.9 % code = 713-8) Basophils + RC (test 0.6 % code = 706-2) RAC (test code = Performing RAC) Organization Information: Site ID: RGA Name: [facility] Address: [address] [place] [phone] Director: Anthony Parker Lab Interpretation Abnormal (test code = 45308-7) [facility] HospitalUrinalysis, automated with [id number] 19:50:00 Test Item Value Reference Range Interpretation Comments Color, UA (test code YELLOW YELLOW = 5778-6) Appearance (test CLOUDY CLEAR A code = 5767-9) Specific gravity, 1.001-1.035 urine (test code = 5811-5) pH, urine (test code 5-8 = 5803-2) Glucose, urine (test NEGATIVE NEGATIVE code = 13907-7) Bilirubin, UA (test NEGATIVE NEGATIVE code = 5770-3) Ketones, UA (test NEGATIVE NEGATIVE code = 9894-8) Occult blood, urine NEGATIVE NEGATIVE (test code = 5794-3) Protein, UA (test NEGATIVE NEGATIVE code = 01100-4) Nitrite, UA (test POSITIVE NEGATIVE A code = 5802-4) Leukocyte esterase, NEGATIVE NEGATIVE UA (test code = 5799-2) WBC, UA (test code = 6-10 See_Comment A [Autom ated 5821-4) message] The system which generated this result transmitted reference range : < OR = 5 /HPF. The reference range was not used to interpr et this result as normal/abnormal . RBC, UA (test code = 0-2 See_Comment [Autom ated 73590-2) message] The system which generated this result transmitted reference range : < OR = 2 /HPF. The reference range was not used to interpr et this result as normal/abnormal . Squamous epithelial 10-20 See_Comment A [Automa fatoumata cells, UA (test code message ] The = 62826-8) system which generated this result transmitted reference range : < OR = 5 /HPF. The reference range was not used to interpr et this result as normal/abnormal . Bacteria, UA (test MANY NONE SEEN /HPF A code = 5769-5) Calcium oxalate MANY NONE OR FEW A crystals, UA (test /HPF code = 13321-7) Hyaline casts, UA NONE SEEN NONE SEEN /LPF (test code = 5796-8) Note: (test code = This urin e was 8251-1) analyzed for th e presence of WBC , RBC, bacteria, casts, and othe r formed elements . Only those elements seen were reported. RAC (test code = Performing RAC) Organization Information: Site ID: [facility] Name: [facility] Address: [address] [place] [phone] Director: Anthony Parker Lab Interpretation Abnormal (test code = 98727-1) [facility] Rock[facility]inine level, urine, [id number] 19:50:00 Test Item Value Reference Range Interpretation Comments Creatinine, urine 76 mg/dL 20-275 (mg/dL) (test code = 2161-8) RAC (test code = Performing Organization RAC) Information: Site ID: [facility] Name: [facility] Address: [address] [place] [phone] Director: Anthony Parker [facility] RockProtein, urine, [id number] 19:50:00 Test Item Value Reference Range Interpretation Comments Protein, urine 17 mg/dL 5-24 random (test code = 2888-6) RAC (test code = Performing Organization RAC) Information: Site ID: RGA Name: [facility] Address: [address] [place] [phone] Director: Anthony Parker [facility] RockLipid 1996 panel - Serum or [id number] 00:00:00 Test Item Value Reference Range Interpretation Comments Cholesterol 162 mg/dL <200 [Mass/volume] in Serum or Plasma (test code = 2093-3) Cholesterol in HDL 38 mg/dL See_Comment L [Automat ed [Mass/volume] in message] Th e system Serum or Plasma (test which generated code = 2085-9) this result transmitted reference range : > or = 50. The reference range was not used to interpret this result as normal/abnormal . Triglyceride 209 mg/dL <150 H [Mass/volume] in Serum or Plasma (test code = 2571-8) Cholesterol in LDL 94 mg/dL [Mass/volume] in (calc) Serum or Plasma by calculation (test code = 85015-5) Cholesterol.total/Cho 4.3 (calc) <5.0 lesterol.in HDL [Mass ratio] in Serum or Plasma (test code = 9830-1) Cholesterol non HDL 124 mg/dL <130 [Mass/volume] in (calc) Serum or Plasma (test code = 44316-4) [facility] metabolic 2000 panel - Serum or [id number] 00:00:00 Test Item Value Reference Range Interpretation Comments Glucose [Mass/volume] in 130 mg/dL 65-99 H Serum or Plasma (test code = 2345-7) Urea nitrogen 25 mg/dL 7-25 [Mass/volume] in Serum or Plasma (test code = 3094-0) Creatinine [Mass/volume] 1.22 mg/dL 0.60-0.93 H in Serum or Plasma (test code = 2160-0) Glomerular filtration 44 See_Comment L [Auto mated rate/1.73 sq M.predicted mL/min/1.73m mes tamera] The among non-blacks [Volume 2 sys tem which Rate/Area] in Serum, generat ed this Plasma or Blood by result tr ansmitted Creatinine-based formula ref erence range: > (CKD-EPI) (test code = or = 60. The 11942-4) reference range was not used to interpret this result as normal/abnormal . Glomerular filtration 51 See_Comment L [Auto mated rate/1.73 sq M.predicted mL/min/1.73m mes tamera] The among blacks [Volume 2 system which Rate/Area] in Serum, generat ed this Plasma or Blood by result tr ansmitted Creatinine-based formula ref erence range: > (CKD-EPI) (test code = or = 60. The 50875-1) reference range was not used to interpret this result as normal/abnormal . Urea nitrogen/Creatinine 20 (calc) 6-22 [Mass Ratio] in Serum or Plasma (test code = 3097-3) Sodium [Moles/volume] in 141 mmol/L 135-146 Serum or Plasma (test code = 2951-2) Potassium [Moles/volume] 4.1 mmol/L 3.5-5.3 in Serum or Plasma (test code = 2823-3) Chloride [Moles/volume] 108 mmol/L 98-110 in Serum or Plasma (test code = 2074-0) Carbon dioxide, total 25 mmol/L 20-32 [Moles/volume] in Serum or Plasma (test code = 2027-) Calcium [Mass/volume] in 9.4 mg/dL 8.6-10.4 Serum or Plasma (test code = 71880-9) Protein [Mass/volume] in 6.1 g/dL 6.1-8.1 Serum or Plasma (test code = 2885-2) Albumin [Mass/volume] in 3.7 g/dL 3.6-5.1 Serum or Plasma (test code = 1751-7) Globulin [Mass/volume] 2.4 g/dL 1.9-3.7 in Serum by calculation (calc) (test code = 28650-6) Albumin/Globulin [Mass 1.5 (calc) 1.0-2.5 Ratio] in Serum or Plasma (test code = 1759-0) Bilirubin.total 0.4 mg/dL 0.2-1.2 [Mass/volume] in Serum or Plasma (test code = 1974-) Alkaline phosphatase 56 U/L 37-153 [Enzymatic activity/volume] in Serum or Plasma (test code = 6768-6) Aspartate 36 U/L 10-35 H aminotransferase [Enzymatic activity/volume] in Serum or Plasma (test code = 1920-8) Alanine aminotransferase 13 U/L 6-29 [Enzymatic activity/volume] in Serum or Plasma (test code = 1742-6) [facility] MedicineThyroxine (T4) free [Mass/volume] in Serum or [id number] 00:00:00 Test Item Value Reference Range Interpretation Comments Thyroxine (T4) free [Mass/volume] 1.6 NG/dL 0.8-1.8 in Serum or Plasma (test code = 3024-7) [facility] MedicineThyrotropin [Units/volume] in Serum or Plasma 2022-02-13 00:00:00 Test Item Value Reference Range Interpretation Comments Thyrotropin [Units/volume] in 2.51 mIU/L 0.40-4.50 Serum or Plasma (test code = 3016-3) [facility] CenterTriiodothyronine (T3) Free [Mass/volume] in Serum or [id number] 00:00:00 Test Item Value Reference Range Interpretation Comments Triiodothyronine (T3) Free 2.3 pg/mL 2.3-4.2 [Mass/volume] in Serum or Plasma (test code = 3051-0) [facility] CenterParathyrin.intact [Mass/volume] in Serum or [id number] 00:00:00 Test Item Value Reference Range Interpretation Comments Parathyrin.intact [Mass/volume] in 48 pg/mL 16-77 Serum or Plasma (test code = 2731-8) [facility] Xytneaka21-Inqhdxrnkapprz D3+25-Hydroxyvitamin D2 [Mass/volume] in Serum or [id number] 00:00:00 Test Item Value Reference Range Interpretation Comments 25-hydroxyvitamin D3 [Mass/volume] 60 NG/mL 30-100 in Serum or Plasma (test code = 1989-3) [facility] CenterHemoglobin A1c/Hemoglobin.total in Blood 2022-02-13 00:00:00 Test Item Value Reference Range Interpretation Comments Hemoglobin 6.2 % of total HGB <5.7 H A1c/Hemoglobin.total in Blood (test code = 4548-4) [facility] HospitalLip[facility] 1995 panel - Serum or [id number] 00:00:00 Test Item Value Reference Range Interpretation Comments Cholesterol 162 mg/dL <200 [Mass/volume] in Serum or Plasma (test code = 2093-3) Cholesterol in HDL 38 mg/dL See_Comment L [Automat ed [Mass/volume] in message] Th e system Serum or Plasma (test which generated code = 2085-9) this result transmitted reference range : > or = 50. The reference range was not used to interpret this result as normal/abnormal . Triglyceride 209 mg/dL <150 H [Mass/volume] in Serum or Plasma (test code = 2571-8) Cholesterol in LDL 94 mg/dL [Mass/volume] in (calc) Serum or Plasma by calculation (test code = 40971-2) Cholesterol.total/Cho 4.3 (calc) <5.0 lesterol.in HDL [Mass ratio] in Serum or Plasma (test code = 9830-1) Cholesterol non HDL 124 mg/dL <130 [Mass/volume] in (calc) Serum or Plasma (test code = 16780-6) [facility] - Serum or [id number] 00:00:00 Test Item Value Reference Range Interpretation Comments Glucose [Mass/volume] in 130 mg/dL 65-99 H Serum or Plasma (test code = 2345-7) Urea nitrogen 25 mg/dL 7-25 [Mass/volume] in Serum or Plasma (test code = 3094-0) Creatinine [Mass/volume] 1.22 mg/dL 0.60-0.93 H in Serum or Plasma (test code = 2160-0) Glomerular filtration 44 See_Comment L [Auto mated rate/1.73 sq M.predicted mL/min/1.73m mes tamera] The among non-blacks [Volume 2 sys tem which Rate/Area] in Serum, generat ed this Plasma or Blood by result tr ansmitted Creatinine-based formula ref erence range: > (CKD-EPI) (test code = or = 60. The 01472-9) reference range was not used to interpret this result as normal/abnormal . Glomerular filtration 51 See_Comment L [Auto mated rate/1.73 sq M.predicted mL/min/1.73m mes tamera] The among blacks [Volume 2 system which Rate/Area] in Serum, generat ed this Plasma or Blood by result tr ansmitted Creatinine-based formula ref erence range: > (CKD-EPI) (test code = or = 60. The 52714-8) reference range was not used to interpret this result as normal/abnormal . Urea nitrogen/Creatinine 20 (calc) 6-22 [Mass Ratio] in Serum or Plasma (test code = 3097-3) Sodium [Moles/volume] in 141 mmol/L 135-146 Serum or Plasma (test code = 2951-2) Potassium [Moles/volume] 4.1 mmol/L 3.5-5.3 in Serum or Plasma (test code = 2823-3) Chloride [Moles/volume] 108 mmol/L 98-110 in Serum or Plasma (test code = 2074-0) Carbon dioxide, total 25 mmol/L 20-32 [Moles/volume] in Serum or Plasma (test code = 2027-) Calcium [Mass/volume] in 9.4 mg/dL 8.6-10.4 Serum or Plasma (test code = 74523-4) Protein [Mass/volume] in 6.1 g/dL 6.1-8.1 Serum or Plasma (test code = 2885-2) Albumin [Mass/volume] in 3.7 g/dL 3.6-5.1 Serum or Plasma (test code = 1751-7) Globulin [Mass/volume] 2.4 g/dL 1.9-3.7 in Serum by calculation (calc) (test code = 82049-9) Albumin/Globulin [Mass 1.5 (calc) 1.0-2.5 Ratio] in Serum or Plasma (test code = 1759-0) Bilirubin.total 0.4 mg/dL 0.2-1.2 [Mass/volume] in Serum or Plasma (test code = 1974-) Alkaline phosphatase 56 U/L 37-153 [Enzymatic activity/volume] in Serum or Plasma (test code = 6768-6) Aspartate 36 U/L 10-35 H aminotransferase [Enzymatic activity/volume] in Serum or Plasma (test code = 0-8) Alanine aminotransferase 13 U/L 6-29 [Enzymatic activity/volume] in Serum or Plasma (test code = 1742-6) [facility] free [Mass/volume] in Serum or [id number] 00:00:00 Test Item Value Reference Range Interpretation Comments Thyroxine (T4) free [Mass/volume] 1.6 NG/dL 0.8-1.8 in Serum or Plasma (test code = 3024-7) [facility] MedicineThyrotropin [Units/volume] in Serum or Plasma 2022-02-13 00:00:00 Test Item Value Reference Range Interpretation Comments Thyrotropin [Units/volume] in 2.51 mIU/L 0.40-4.50 Serum or Plasma (test code = 3016-3) [facility] [Mass/volume] in Serum or [id number] 00:00:00 Test Item Value Reference Range Interpretation Comments Triiodothyronine (T3) Free 2.3 pg/mL 2.3-4.2 [Mass/volume] in Serum or Plasma (test code = 3051-0) [facility] CenterParathyrin.intact [Mass/volume] in Serum or [id number] 00:00:00 Test Item Value Reference Range Interpretation Comments Parathyrin.intact [Mass/volume] in 48 pg/mL 16-77 Serum or Plasma (test code = 2731-8) [facility] Aiyshqjf68-Zhonurtovtwsgr D3+25-Hydroxyvitamin D2 [Mass/volume] in Serum or [id number] 00:00:00 Test Item Value Reference Range Interpretation Comments 25-hydroxyvitamin D3 [Mass/volume] 60 NG/mL 30-100 in Serum or Plasma (test code = 1989-3) [facility] CenterHemoglobin A1c/Hemoglobin.total in Blood 2022-02-13 00:00:00 Test Item Value Reference Range Interpretation Comments Hemoglobin 6.2 % of total HGB <5.7 H A1c/Hemoglobin.total in Blood (test code = 4548-4) [facility] MedicineVitamin B12 [id number] 08:57:00 Test Item Value Reference Interpretation Comments Range Vitamin B12 247 pg/mL 200-1100 Please Note: A lthough the (test code = reference range for 2132-04) myodxeoA08 is 2 00-1100 pg/mL, it has b een reported that between5 a nd 10% of patients with v alues between 200 and 400pg/m L may experience neur opsychiatric and hematologic abnormalities due to occult B 12 deficiency; les s than 1%of patients with v alues above 400 pg/mL will have symptoms. CATIE (test FASTING:YES code = CATIE) FASTING: YES RAC (test Performing code = RAC) Organization Information: Site ID: [facility]: [facility] Address: [address] [place] [address] Director: Nathony Nevin RodriguezElenaSumma [facility]2022-06-22 08:57:00 Test Item Value Reference Range Interpretation Comments Ferritin level (test 12 ng/mL 16-288 L code = 2276-4) CATIE (test code = CATIE) FASTING:YES FASTING: YES RAC (test code = RAC) Performing Organization Information: Site ID: [facility] Name: [facility] Address: [address] [place] [address] Director: Anthony Parker Lab Interpretation (test Abnormal code = 97648-6) [facility] [id number] 08:57:00 Test Item Value Reference Range Interpretation Comments Folate (test 7.8 ng/mL Reference Rang e code = 2284-8) Low: <3.4 Borderline: 3.4-5.4 Normal : >5.4 CATIE (test code FASTING:YES FASTING: = CATIE) YES RAC (test code Performing = RAC) Organization Information: Site ID: [facility] Name: [facility] Address: [address] [place] [address] Director: Anthony Rodriguezridge [facility] [id number] 08:57:00 Test Item Value Reference Range Interpretation Comments WBC (test code = See_Comment [Automated 9190-2) message] The system which generated this result transmitted reference range : 3.8 - 10.8 Thousand/uL. Th e reference range was not used to interpret this result as normal/abnormal . RBC (test code = See_Comment L [Automated 767-8) message] The system which generated this result transmitted reference range : 3.80 - 5.10 Million/uL. The reference range was not used to interpret this result as normal/abnormal . HGB (test code = 8.0 g/dL 11.7-15.5 L 718-7) HCT (test code = 27.7 % 35-45 L 4544-3) MCV (test code = 76.7 fL 80-100 L 787-2) MCH (test code = 22.2 pg 27-33 L 785-6) MCHC (test code = 28.9 g/dL 32-36 L 786-4) RDW (test code = 15.1 % 11-15 H 788-0) Platelet count (test See_Comment [Autom ated code = 777-3) message] The system which generated this result transmitted reference range : 140 - 400 Thousand/uL. Th e reference range was not used to interpret this result as normal/abnormal . MPV (test code = 10.3 fL 7.5-12.5 776-5) CATIE (test code = FASTING:YES CATIE) FASTING: YES RAC (test code = Performing RAC) Organization Information: Site ID: [facility] Name: [email or web address] [facility] Lab Address: [address] [place] [phone] Director: Anthony Parker Lab Interpretation Abnormal (test code = 18693-1) [facility] iron binding [id number] 08:57:00 Test Item Value Reference Range Interpretation Comments Iron level (test See_Comment L [Automated code = 2498-4) message] The system which generated this result transmitted reference range : 45 - 160 mcg/dL . The reference range was not used to interpr et this result as normal/abnormal . Iron binding See_Comment H [Automated capacity (test code message] The = 2500-7) system which generated this result transmitted reference range : 250 - 450 mcg/d L (calc). The reference range was not used to interpret this result as normal/abnormal . Iron saturation See_Comment L [Automated (test code = 1032-3) message ] The system which generated this result transmitted reference range : 16 - 45 % (calc ). The reference range was not used to interpr et this result as normal/abnormal . CATIE (test code = FASTING:YES CATIE) FASTING: YES RAC (test code = Performing RAC) Organization Information: Site ID: [facility] Name: [facility] Address: [address] [place] [phone] Director: Anthony Parker Lab Interpretation Abnormal (test code = 20920-1) [facility] 12 [id number] 22:17:49 Test Item Value Reference Range Interpretation Comments Ventricular rate (test code = 253) Atrial rate (test code = 255) CT interval (test code = 266) QRSD interval (test code = 260) QT interval (test code = 264) QTC interval (test code = 265) QRS axis 1 (test code = 268) T wave axis (test code = 270) EKG impression (test Atrial-paced rhythm with code = 273) prolonged AV conduction-Left axis deviation-Left bundle branch block-Abnormal ECG-In automated comparison with ECG of 05-SEP-2020 13:01,-Previous ECG has undetermined rhythm, needs review-Left bundle branch block has replaced Nonspecific intraventricular block-Borderline criteria for Lateral infarct are no longer present-Criteria for Inferior infarct are no longer present- [facility] [place] [id number] 23:34:00 Test Item Value Reference Interpretation Comments Range Urine culture (test SEE NOTE A CULTURE , URINE, code = 630-4) ROUTINE Micro Number: [id number] Test Status: Fi nal Specimen Source : Urine Specimen Quality: Adequa te Result: Greater than 100,000 CFU/mL of Citrobacter freundii C.freundii - INT GABE AMOX/CLAVULANAT E R 8 AMPICILLIN R 16 CEFAZOLIN R >=6 4 1 CEFEPIME S <=1 CEFTRIAXONE S < =1 CIPROFLOXACIN S <=0.25 GENTAMIC IN S <=1 IMIPENEM S 0.5 LEVOFLOXACI N S <=0.12 NITROFURANTOIN S 32 PIP/TAZOBACT AM S <=4 TOBRAMYCI N S <=1 TRIMETHOPRIM/GARDNER LFA S <=20 S=Susceptible I=Intermediate R=Resistant * = Not TestedNR = Not Reported NN = See Therapy Comments THERA PY COMMENTS Note 1 : For uncomplicat ed UTI caused by E . coli, K. pneumoniae or P . mirabilis: Cefazolin is susceptible if GABE <32 mcg/mL and predicts susceptible to the oral agents cefaclor, cefdinir, cefpodoxime, cefprozil, cefuroxime, cephalexin and loracarbef. CATIE (test code = FASTING:YES CATIE) FASTING: YES RAC (test code = Performing RAC) Organization Information: Site ID: [facility] Address: [address] [place] [phone] Director: Anthony Parker Lab Interpretation Abnormal (test code = 82926-8) [facility] protein/creatinine ratio, [id number] 21:07:00 Test Item Value Reference Range Interpretation Comments Creatinine, 69 mg/dL 20-275 urine (mg/dL) (test code = 2161-8) Protein/Creat See_Comment [Automated Ratio (test message] The sy stem code = 2890-2) which generat ed this result transmitted reference range : 0.021 - 0.161 m g/mg creat. The reference range was not used to interpret this result as normal/abnormal . Protein, urine 8 mg/dL 5-24 random (test code = 2888-6) CATIE (test code 0; 0 = CATIE) RAC (test code Performing = RAC) Organization Information: Site ID: [facility] Address: [address] [place] [phone] Director: Anthony Parker [facility]INAL[facility], COMPLETE, WITH REFLEX TO [id number] 21:07:00 Test Item Value Reference Interpretation Comments Range Color, UA (test code YELLOW YELLOW = 5778-6) Appearance (test CLOUDY CLEAR A code = 5767-9) Specific gravity, 1.001-1.035 urine (test code = 5811-5) pH, urine (test code 5-8 = 5803-2) Glucose, urine (test NEGATIVE NEGATIVE code = 18843-0) Bilirubin, UA (test NEGATIVE NEGATIVE code = 5770-3) Ketones, UA (test NEGATIVE NEGATIVE code = 2324-8) Occult blood, urine NEGATIVE NEGATIVE (test code = 5794-3) Protein, UA (test NEGATIVE NEGATIVE code = 03621-2) Nitrite, UA (test NEGATIVE NEGATIVE code = 5802-4) Leukocyte esterase, 1+ NEGATIVE A UA (test code = 5799-2) WBC, UA (test code = 10-20 See_Comment A [Autom ated 5821-4) message] The sy stem which generated this result transmitted reference range : < OR = 5 /HPF. Th e reference range was not used to interpret this result as normal/abnormal . RBC, UA (test code = NONE SEEN See_Comment [Autom ated 95697-4) message] The sy stem which generated this result transmitted reference range : < OR = 2 /HPF. Th e reference range was not used to interpret this result as normal/abnormal . Squamous epithelial NONE SEEN See_Comment [Automa fatoumata cells, UA (test code message ] The system = 98379-3) which generated this result transmitted reference range : < OR = 5 /HPF. Th e reference range was not used to interpret this result as normal/abnormal . Bacteria, UA (test MODERATE NONE SEEN /HPF A code = 5769-5) Calcium oxalate FEW NONE OR FEW crystals, UA (test /HPF code = 90553-1) Hyaline casts, UA NONE SEEN NONE SEEN /LPF (test code = 5796-8) Urine culture (test SEE NOTE A CULTURE , URINE, code = 630-4) ROUTINE Micro Number: [id number] Test Status: Fi nal Specimen Source : Urine Specimen Quality: Adequa te Result: Greater than 100,000 CF U/mL of Citrobacter freundii C.freu ndii - INT GABE AMOX/CLAVULANAT E R >=32 AMPICILLIN R 16 CEFAZOLIN R >=64 1 CEFEPIME S <=1 CEFTRIAXONE S < =1 CIPROFLOXACIN S <=0.25 GENTAMIC IN S <=1 LEVOFLOXACI N S <=0.12 NITROFURANTOIN S <=16 PIP/TAZOBA CTAM S <=4 TOBRAMYCI N S <=1 TRIMETHOPRIM/GARDNER LFA S <=20 S=Susceptible I=Intermediate R=Resistant * = Not TestedNR = Not Reported NN = See Therapy Comment s THERAPY COMMENT S Note 1: For uncomplicated U TI caused by E. co li, K. pneumoniae o r P. mirabilis: Cefazolin is susceptible if GABE <32 mcg/mL and predicts susceptible to the oral agents cefaclor, cefdi allie, cefpodoxime, cefprozil, cefuroxime, cephalexin and loracarbef. CATIE (test code = 0; 0 CATIE) RAC (test code = Performing RAC) Organization Information: Site ID: [facility] Name: [facility] Address: [address] [place] [phone] Director: Anthony Parker Lab Interpretation Abnormal (test code = 74172-2) Salbador Boone-CoV-2 (COVID-19) RNA [Presence] in Respiratory specimen by ODUG with probe [id number] 19:25:25 Test Item Value Reference Range Interpretation Comments SARS-CoV-2 (COVID-19) RNA Not detected Not-Detected [Presence] in Respiratory specimen by DOUG with probe detection (test code = 26184-1) Whether patient is employed in a healthcare setting (test code = 95148-7) Whether the patient has symptoms related to condition of interest (test code = 48923-6) Patient was hospitalized because of this condition (test code = 86296-7) Whether the patient was admitted to intensive care unit (ICU) for condition of interest (test code = 44185-8) Whether patient resides in a congregate care setting (test code = 54882-0) CATALINO GHOSHSARS-CoV-2 (COVID-19) RNA [Presence] in Respiratory specimen by DOUG with probe [id number] 14:45:18 Test Item Value Reference Range Interpretation Comments SARS-CoV-2 (COVID-19) RNA Not detected Not-Detected [Presence] in Respiratory specimen by DOUG with probe detection (test code = 47203-2) CATAILNO GHOSHGLUBED2019-09-11 16:56:00 Test Item Value Reference Range Interpretation Comments GLUBED (test code = GLUBED) 122 mg/dL 60-125 N [id number] 12:34:00 Test Item Value Reference Range Interpretation Comments GLUBED (test code = GLUBED) 91 mg/dL 60-125 N - XR CHEST 1 [id number] 08:39:00 Patient Name: CARL CALDERON Unit No: [id number] EXAMS: CPT CODE: [id number] XR CHEST 1 V 34340 Portable chest one view. HISTORY: PICC line placement COMMENT: The lungs are clear and normally e xpanded. There is a right subclavian PICC line with its tip overlying the superior vena cava. This is in good position. No evidence of pneumothorax. The heart and pulmonary vasculature is normal. Visualized soft tissues and skeletal structures are unremarkable. There is a pacemaker overlying the left lateral rib cage. The pacemaker leads overlie the heart. DIAGNOSIS: 1. PICC line is in good position.No evidence of pneumothorax. at 0839 Reported and signed by: Rocio Moreno MD CC: Kingsley Morrissey MD Technologist: SRAVAN PATEL RT(R); MICKI KRISHNAN (RT.R) Transcribed D/ (0839) FestusGVG [facility] NAME: CARL CALDERON [address] [facility] PHYS: Kingsley Nino MD : 1950 AGE: 68 SEX: [place] [address] LOC: Y.506 A PHONE #: [phone] EXAM DATE: 04/20/2019 STATUS: ADM IN FAX #: [phone] RAD #: D/C DT PAGE 1 Signed Report Patient Name: CARL CALDERON Unit No: [id number] EXAMS: CPT CODE: [id number] XR CHEST 1 V 39068 (Continued) Orig Print D/T: S: 04/21/2019 (0843) [facility] NAME: CARL CALDERON [address] [facility] PHYS: Kingsley Nino MD : 1950 AGE: 68 SEX: [place] [address] LOC: Y.506 A PHONE #: [phone] EXAM DATE: 04/20/2019 STATUS: ADM IN FAX #: [phone] RAD #: D/C DT PAGE 2 Signed ReportCREATINE KINASE (CK)2019-04-21 07:01:00 Test Item Value Reference Range Interpretation Comments CREATINE KINASE (CK) (test code = 47 Units/L 26-192 CK) CREATINE KINASE (CK)2019-04-21 07:01:00 Test Item Value Reference Range Interpretation Comments CREATINE KINASE (CK) (test code = 47 Units/L 26-192 N CK) [id number] 06:26:00 Test Item Value Reference Range Interpretation Comments GLUBED (test code = GLUBED) 113 mg/dL 60-125 N [id number] 21:10:00 Test Item Value Reference Range Interpretation Comments GLUBED (test code = GLUBED) 97 mg/dL 60-125 N [id number] 17:22:00 Test Item Value Reference Range Interpretation Comments GLUBED (test code = GLUBED) 189 mg/dL 60-125 H [id number] 12:33:00 Test Item Value Reference Range Interpretation Comments GLUBED (test code = GLUBED) 135 mg/dL 60-125 H [id number] 09:52:00 Test Item Value Reference Range Interpretation Comments GLUBED (test code = GLUBED) 98 mg/dL 60-125 N BASIC METABOLIC [id number] 07:23:00 Test Item Value Reference Range Interpretation Comments SODIUM (test code = 141 mmol/L 136-145 N NA) POTASSIUM (test code = 4.7 mmol/L 3.5-5.1 N K) CHLORIDE (test code = 108.0 mmol/L 98-107 H CL) CARBON DIOXIDE (test 20.8 mmol/L 21-32 L code = CO2) GLUCOSE (test code = 134 mg/dL 70-110 H GLU) BLOOD UREA NITROGEN 21 mg/dL 7-18 H (test code = BUN) GLOMERULAR FILTRATION 45.4 >60 Unit o f measure: RATE (test code = GFR) mL/mi n/1.73 f9Icddmopjq Range:Healthy Adults >90 mL/min/1.73 m2 For Chronic Kidney Disease: Stage II Mild Decrease i n GFR 60-90 Stage III Moderate Decrea se in GFR 30-59 St age IV Severe Decre ase in GFR 15-29 St age V Kidney Failur e <15 CREATININE (test code 1.18 mg/dL 0.55-1.30 N = CREAT) CALCIUM (test code = 8.0 mg/dL 8.2-10.1 L CA) [id number] 06:44:00 Test Item Value Reference Range Interpretation Comments GLUBED (test code = GLUBED) 131 mg/dL 60-125 H HGB [id number] 06:15:00 Test Item Value Reference Range Interpretation Comments HEMOGLOBIN (test code = HGB) 9.9 g/dL 12-16 L HEMATOCRIT (test code = HCT) 30.2 % 37-47 L [id number] 21:14:00 Test Item Value Reference Range Interpretation Comments GLUBED (test code = GLUBED) 181 mg/dL 60-125 H COMPREHENSIVE METABOLIC [id number] 20:13:00 Test Item Value Reference Range Interpretation Comments SODIUM (test code = NA) 144 mEq/L 135-145 POTASSIUM (test code = 4.4 mEq/L 3.5-5.0 K) CHLORIDE (test code = 107 mEq/L 100-115 CL) CARBON DIOXIDE (test 24 mEq/L 22-31 code = CO2) GLUCOSE (test code = 138 mg/dL 65-110 H GLU) BLOOD UREA NITROGEN 32 mg/dL 7-18 H (test code = BUN) GLOMERULAR FILTRATION 29.8 >60 Unit o f measure: RATE (test code = GFR) mL/mi n/1.73 a3Gtmwnwfsm Range:Healthy A dults >90 mL/min/1.73 m2 For Chronic Kid kane Disease: Stage II Mild Decrease i n GFR 60-90 Stage III Moderate Decrea se in GFR 30-59 Stage IV Severe Decrease in GFR 15-29 Stage V Kidney Failure <15Unit of delfina ure: mL/min/1.73 b6Gffpymsvw Range:Healthy A dults >90 mL/min/1.73 m2 For Chronic Kid kane Disease: Stage II Mild Decrease i n GFR 60-90 Stage III Moderate Decrea se in GFR 30-59 Stage IV Severe Decrease in GFR 15-29 Stage V Kidney Failure <15 CREATININE (test code = 1.7 mg/dL 0.5-1.0 H CREAT) TOTAL PROTEIN (test 6.9 gm/dL 6.3-8.2 code = PROT) ALBUMIN (test code = 3.8 gm/dL 3.4-4.8 ALB) GLOBULIN (test code = 3.1 g/dL 2.2-4.2 N GLOB) ALBUMIN/GLOBULIN RATIO 1.23 (test code = A/G) CALCIUM (test code = 9.2 mg/dL 8.4-10.2 CA) BILIRUBIN TOTAL (test 0.3 mg/dL 0.2-1.0 code = BILT) SGOT/AST (test code = 26 units/L 15-37 AST) SGPT/ALT (test code = 27 units/L 12-78 ALT) ALKALINE PHOSPHATASE 61 units/L 46-116 TOTAL (test code = ALKP) [id number] 20:08:00 Test Item Value Reference Range Interpretation Comments POTASSIUM (test code = K) 4.4 mEq/L 3.5-5.0 N COMPREHENSIVE METABOLIC [id number] 20:08:00 Test Item Value Reference Range Interpretation Comments SODIUM (test code = NA) 144 mEq/L 135-145 POTASSIUM (test code = 4.4 mEq/L 3.5-5.0 K) CHLORIDE (test code = 107 mEq/L 100-115 CL) CARBON DIOXIDE (test 24 mEq/L 22-31 code = CO2) GLUCOSE (test code = 138 mg/dL 65-110 H GLU) BLOOD UREA NITROGEN 32 mg/dL 7-18 H (test code = BUN) GLOMERULAR FILTRATION 29.8 >60 Unit o f measure: RATE (test code = GFR) mL/mi n/1.73 p5Ynsqehkiq Range:Healthy A dults >90 mL/min/1.73 m2 For Chronic Kid kane Disease: Stage II Mild Decrease i n GFR 60-90 Stage III Moderate Decrea se in GFR 30-59 Stage IV Severe Decrease in GFR 15-29 Stage V Kidney Failure <15Unit of delfina ure: mL/min/1.73 a9Acprvvefh Range:Healthy A dults >90 mL/min/1.7 3 m2 For Chronic Kid kane Disease: Stage II Mild Decrease i n GFR 60-90 Stage III Moderate Decrea se in GFR 30-59 Stage IV Severe Decrease in GFR 15-29 Stage V Kidney Failure <15 CREATININE (test code = 1.7 mg/dL 0.5-1.0 H CREAT) TOTAL PROTEIN (test 6.9 gm/dL 6.3-8.2 code = PROT) ALBUMIN (test code = gm/dL 3.4-4.8 ALB) GLOBULIN (test code = 3.1 g/dL 2.2-4.2 N GLOB) ALBUMIN/GLOBULIN RATIO 1.23 (test code = A/G) CALCIUM (test code = 9.2 mg/dL 8.4-10.2 CA) BILIRUBIN TOTAL (test mg/dL 0.2-1.0 code = BILT) SGOT/AST (test code = 26 units/L 15-37 AST) SGPT/ALT (test code = 27 units/L 12-78 ALT) ALKALINE PHOSPHATASE 61 units/L 46-116 TOTAL (test code = ALKP) [id number] 20:08:00 Test Item Value Reference Range Interpretation Comments CHLORIDE (test code = CL) 107 mEq/L 100-115 N CARBON [id number] 20:08:00 Test Item Value Reference Range Interpretation Comments CARBON DIOXIDE (test code = CO2) 24 mEq/L 22-31 N [id number] 20:08:00 Test Item Value Reference Range Interpretation Comments GLUCOSE (test code = GLU) 138 mg/dL 65-110 H BLOOD UREA [id number] 20:08:00 Test Item Value Reference Range Interpretation Comments BLOOD UREA NITROGEN (test code = 32 mg/dL 7-18 H BUN) GLOMERULAR FILTRATION [id number] 20:08:00 Test Item Value Reference Range Interpretation Comments GLOMERULAR FILTRATION RATE (test 30 ml/min >60 L code = GFR) [id number] 20:08:00 Test Item Value Reference Range Interpretation Comments CREATININE (test code = CREAT) 1.7 mg/dL 0.5-1.0 H TOTAL [id number] 20:08:00 Test Item Value Reference Range Interpretation Comments TOTAL PROTEIN (test code = PROT) 6.9 gm/dL 6.3-8.2 N [id number] 20:08:00 Test Item Value Reference Range Interpretation Comments ALBUMIN (test code = ALB) 3.8 gm/dL 3.4-4.8 N [id number] 20:08:00 Test Item Value Reference Range Interpretation Comments CALCIUM (test code = CA) 9.2 mg/dL 8.4-10.2 N BILIRUBIN [id number] 20:08:00 Test Item Value Reference Range Interpretation Comments BILIRUBIN TOTAL (test code = BILT) 0.3 mg/dL 0.2-1.0 N [id number] 20:08:00 Test Item Value Reference Range Interpretation Comments SGOT/AST (test code = AST) 26 units/L 15-37 N [id number] 20:08:00 Test Item Value Reference Range Interpretation Comments SGPT/ALT (test code = ALT) 27 units/L 12-78 N ALKALINE PHOSPHATASE [id number] 20:08:00 Test Item Value Reference Range Interpretation Comments ALKALINE PHOSPHATASE TOTAL (test 61 units/L 46-116 N code = ALKP) [id number] 20:08:00 Test Item Value Reference Range Interpretation Comments SODIUM (test code = NA) 144 mEq/L 135-145 N PROTHROMBIN [id number] 19:42:00 Test Item Value Reference Range Interpretation Comments PROTHROMBIN TIME 14.7 secs 10.1-12.5 H PATIENT (test code = PTP) INTERNATIONAL NORMAL 1.30 <2.0 RECOMME NDED THERAPEUTIC RATIO (test code = RANGE FOR ORAL INR) ANTICOAGULANTTR EATMENT: CONDITION INRPr ophylaxis of venous throm bosis in 2.0 - 3.0 high- risk medical or surg ical patientsTreatme nt of venous thrombos is 2.0 - 3.0Prevention o f embolism 2.0 - 3.0Prevention o f recurrent embol ism, or 3.0 - 4.5 patie nts with mechanical pros thetic intravascular v montero IS PATIENT ON ANTICOAGULANTS ? YLIST ANTICOAGULANT/ANTI PLT MEDICATION : AspirinHas Lab been notified if Patient is on Heparin Drip? NOIf Yes, order CBC, OCCULT BLOOD, PT every other day NLIST ANTICOAGULANT/ANTI PLT MEDICATION : OtherTHROMBOPLASTIN TIME [id number] 19:42:00 Test Item Value Reference Range Interpretation Comments PTT ACTIVATED (test code = APTT) 32.5 secs 24.9-37.0 N IS PATIENT ON ANTICOAGULANTS ? YLIST ANTICOAGULANT/ANTI PLT MEDICATION : AspirinHas Lab been notified if Patient is on Heparin Drip? NOIf Yes, order CBC, OCCULT BLOOD, PT every other day NLIST ANTICOAGULANT/ANTI PLT MEDICATION : OtherCBC W/AUTO [id number] 18:38:00 Test Item Value Reference Range Interpretation Comments WHITE BLOOD CELL (test code = WBC) 6.2 K/mm3 5.8-11.0 N RED BLOOD CELL (test code = RBC) 3.88 M/mm3 4.2-5.4 L HEMOGLOBIN (test code = HGB) 11.2 g/dL 12-16 L HEMATOCRIT (test code = HCT) 35.3 % 37-47 L MEAN CELL VOLUME (test code = MCV) 91 fL 80-98 N MEAN CELL HGB (test code = MCH) 28.9 pg 27-34 N MEAN CELL HGB CONCENTRATION (test 31.7 g/dL 30.8-34.1 N code = MCHC) RED CELL DISTRIBUTION WIDTH (test 15.2 % 11-16 N code = RDW) PLT (test code = PLT) 439 K/mm3 130-400 H MEAN PLATELET VOLUME (test code = 10.3 fL 8.9-12.1 N MPV) NEUTROPHIL % (test code = NT%) 62.7 % 45-70 N LYMPHOCYTE % (test code = LY%) 23.2 % 20-40 N MONOCYTE % (test code = MO%) 8.7 % 3-10 N EOSINOPHIL % (test code = EO%) 2.7 % 1-5 N BASOPHIL % (test code = BA%) 0.8 % 0.0-1.1 N NEUTROPHIL # (test code = NT#) 3.91 K/mm3 2.00-7.50 N LYMPHOCYTE # (test code = LY#) 1.45 K/mm3 1.50-4.00 L MONOCYTE # (test code = MO#) 0.54 K/mm3 0.2-0.8 N EOSINOPHIL # (test code = EO#) 0.17 K/mm3 0.04-0.4 N BASOPHIL # (test code = BA#) 0.05 K/mm3 0.02-0.10 N MANUAL DIFF REQUIRED (test code = NO MANUAL DIFF MDIFF) NUCLEATED RED BLOOD CELL (test 0 % 0-0 N code = NRBC) - USG NDL PLACEMENT (Bxg/Asp)2019-04-05 10:33:00 Patient Name: CARL CALDERON Unit No: [id number] EXAMS: CPT CODE: [id number] USG NDL PLACEMENT (Bxg/Asp) 31958 Ultrasound-guided left knee aspiration COMMENT: After informed consent was obtained a 22-gauge needle is inserted into the suprapatellar joint effusion under sonographic guidance using sterile technique. 6 mL fluid is aspirated. This is sent to the lab for analysis. Patient toleratedthe procedure well. at 1033 Reported and signed by: Rocio Moreno MD CC: Kingsley Morrissey MD Technologist: REGINE CHAUDHRY RDMS, RVT Transcribed D/ (1033) t.MARIELR.GVG [facility] NAME: CARL CALDERON [address] [facility] PHYS: Kingsley Nino MD : 1950 AGE: 68 SEX: F [place] [address] LOC: Y.RAD PHONE #: [phone] EXAM DATE: 04/02/2019 STATUS: DEP CLI FAX #: [phone] RAD #: D/C DT PAGE 1 Signed Report Patient Name: CARL CALDERON Unit No: [id number]: CPT CODE: [id number] USG NDL PLACEMENT (Bxg/Asp) 57629 (Continued) Orig Print D/T: S: 04/05/2019 (1036) [facility] NAME: CARL CALDERON [address] [facility] PHYS: Kingsley Nino MD : 1950 AGE: 68 SEX: F [place] [address] LOC: Y.RAD PHONE #: [phone] EXAM DATE: 04/02/2019 STATUS: DEP CLI FAX #: [phone] RAD #: D/C DT PAGE [address] F[address] CE[id number] 17:32:00 Test Item Value Reference Range Interpretation Comments SYNOVIAL FLD LIGHT YELLOW LT. YELLOW COLOR (test code = COLSY) SYNOVIAL FLD CLOUDY CLEAR A APPEARANCE (test code = APPSY) SYNOVIAL FLD 1 mL VOLUME (test code = VOLSY) SYNOVIAL FLD WBC 2984.000 /MM3 0-200 H (test code = WBCSY) SYNOVIAL FLD RBC 2000.000 /mm3 0-2 H NOTE: An a utomated (test code = method is now b eing used RBCSY) to determinesyn ovial fluid WBC and R BC counts. The dif ferential willstill be pe rformed manually. SYNOVIAL FLD POLY 90 % 0-25 H (test code = POLYSY) SYNOVIAL FLD 6 % 0-78 N LYMPHOCYTE (test code = LYMPHSY) SYNOVIAL FLD 4 % 0-71 N MONOCYTE (test code = MONOSY) SPECIMEN COMMENT: ASP.LT.KNEESYNOVIAL FLD CELL CT/[id number] 17:31:00 Test Item Value Reference Range Interpretation Comments SYNOVIAL FLD COLOR LT. YELLOW (test code = COLSY) SYNOVIAL FLD CLEAR APPEARANCE (test code = APPSY) SYNOVIAL FLD mL VOLUME (test code = VOLSY) SYNOVIAL FLD WBC 2984.000 0-200 H (test code = /MM3 WBCSY) SYNOVIAL FLD RBC 2000.000 0-2 H NOTE: An au tomated (test code = /mm3 method is now b eing used RBCSY) to determinesyn ovial fluid WBC and R BC counts. The dif ferential willstill be pe rformed manually. SPECIMEN COMMENT: ASP.LT.KNEECBC W/AUTO [id number] 17:02:00 Test Item Value Reference Range Interpretation Comments WHITE BLOOD CELL (test code = WBC) 5.5 K/mm3 5.8-11.0 L RED BLOOD CELL (test code = RBC) 3.71 M/mm3 4.2-5.4 L HEMOGLOBIN (test code = HGB) 10.6 g/dL 12-16 L HEMATOCRIT (test code = HCT) 32.8 % 37-47 L MEAN CELL VOLUME (test code = MCV) 88 fL 80-98 N MEAN CELL HGB (test code = MCH) 28.6 pg 27-34 N MEAN CELL HGB CONCENTRATION (test 32.3 g/dL 30.8-34.1 N code = MCHC) RED CELL DISTRIBUTION WIDTH (test 15.4 % 11-16 N code = RDW) PLT (test code = PLT) 416 K/mm3 130-400 H MEAN PLATELET VOLUME (test code = 10.2 fL 8.9-12.1 N MPV) NEUTROPHIL % (test code = NT%) 61.8 % 45-70 N LYMPHOCYTE % (test code = LY%) 25.5 % 20-40 N MONOCYTE % (test code = MO%) 7.7 % 3-10 N EOSINOPHIL % (test code = EO%) 2.6 % 1-5 N BASOPHIL % (test code = BA%) 0.9 % 0.0-1.1 N NEUTROPHIL # (test code = NT#) 3.40 K/mm3 2.00-7.50 N LYMPHOCYTE # (test code = LY#) 1.40 K/mm3 1.50-4.00 L MONOCYTE # (test code = MO#) 0.42 K/mm3 0.2-0.8 N EOSINOPHIL # (test code = EO#) 0.14 K/mm3 0.04-0.4 N BASOPHIL # (test code = BA#) 0.05 K/mm3 0.02-0.10 N MANUAL DIFF REQUIRED (test code = NO MANUAL DIFF MDIFF) NUCLEATED RED BLOOD CELL (test 0 % 0-0 N code = NRBC) SED [id number] 17:02:00 Test Item Value Reference Range Interpretation Comments SED RATE (test code = SEDW) 53 mm/hr 0-20 H C REACTIVE [id number] 16:05:00 Test Item Value Reference Range Interpretation Comments C REACTIVE PROTEIN (test code = 3.0 mg/dL <0.9 CRP) CBC W/AUTO [id number] 15:50:00 Test Item Value Reference Range Interpretation Comments WHITE BLOOD CELL (test code = WBC) 5.5 K/mm3 5.8-11.0 L RED BLOOD CELL (test code = RBC) 3.71 M/mm3 4.2-5.4 L HEMOGLOBIN (test code = HGB) 10.6 g/dL 12-16 L HEMATOCRIT (test code = HCT) 32.8 % 37-47 L MEAN CELL VOLUME (test code = MCV) 88 fL 80-98 N MEAN CELL HGB (test code = MCH) 28.6 pg 27-34 N MEAN CELL HGB CONCENTRATION (test 32.3 g/dL 30.8-34.1 N code = MCHC) RED CELL DISTRIBUTION WIDTH (test 15.4 % 11-16 N code = RDW) PLT (test code = PLT) 416 K/mm3 130-400 H MEAN PLATELET VOLUME (test code = 10.2 fL 8.9-12.1 N MPV) NEUTROPHIL % (test code = NT%) 61.8 % 45-70 N LYMPHOCYTE % (test code = LY%) 25.5 % 20-40 N MONOCYTE % (test code = MO%) 7.7 % 3-10 N EOSINOPHIL % (test code = EO%) 2.6 % 1-5 N BASOPHIL % (test code = BA%) 0.9 % 0.0-1.1 N NEUTROPHIL # (test code = NT#) 3.40 K/mm3 2.00-7.50 N LYMPHOCYTE # (test code = LY#) 1.40 K/mm3 1.50-4.00 L MONOCYTE # (test code = MO#) 0.42 K/mm3 0.2-0.8 N EOSINOPHIL # (test code = EO#) 0.14 K/mm3 0.04-0.4 N BASOPHIL # (test code = BA#) 0.05 K/mm3 0.02-0.10 N MANUAL DIFF REQUIRED (test code = NO MANUAL DIFF MDIFF) NUCLEATED RED BLOOD CELL (test 0 % 0-0 N code = NRBC) SED [id number] 15:50:00 Test Item Value Reference Range Interpretation Comments SED RATE (test code = SEDW) mm/hr 0-20 - DUP VEIN UNI/[id number] 14:39:00 Patient Name: CARL CALDERON Unit No: [id number] EXAMS: CPT CODE: [id number] DUP VEIN UNI/LTD 63000 FINDINGS: Left lower extremity grayscale and Doppler venous ultrasound demonstrates normal fl ow and luminal compressibility without evidence of intraluminal thrombus. IMPRESSION: No evidence ofDVT within deep venous structures of the left lower extremity. at 1431 Reported and signed by: Alin Elizondo M.D. CC: Ekaterina Morrissey MD Technologist: REGINE CHAUDHRY RDMS, RVT Transcribed D/ (3984) Celina [facility] NAME: CARL CALDERON [address] [facility] PHYS: Kingsley Nino : 1950 AGE: 68 SEX: F [place], [place] [address] LOC: YJacquelineRAD PHONE #: [phone] EXAM DATE: 03/30/2019 STATUS: DEP CLI FAX #: [phone] RAD #: D/C DT PAGE 1 Signed Report Patient Name: CARL CALDERON Unit No: [id number] EXAMS: CPT CODE: [id number] DUP VEIN UNI/LTD 60057 (Continued) Orig Print D/T: S: 03/31/2019 (1442) [facility] NAME: CARL CALDERON [address] [facility] PHYS: Kingsley Nino MD : 1950 AGE: 68 SEX: F [place], [place] [address] LOC: ElsiRAD PHONE #: [phone] EXAM DATE: 03/30/2019 STATUS: DEP CLI FAX #: [phone] RAD #: D/C DT PAGE 2 Signed Report Notes Date/Time Note Provider Source 2022-05-14 08:23:00-00:00 [facility] DT Operative Note REPORT#:[id number] REPORT STATUS: Signed DATE:05/14/22 TIME: 822 PATIENT: CARL CALDERON UNIT #: [id number] ROOM/BED: : 49 AGE: 72 SEX: F ATTEND: Alvarado Syed MD ADM AUTHOR: Alvarado Syed MD * ALL edits or amendments must be made on the [employer] document * See Addendum Operative Report Operative Note Note: DATE OF SERVICE: 05/14/22 PREOPERATIVE DIAGNOSIS:1. left carpal tunnel syn drome 2. left cubital tunnel syndrome POSTOPERATIVE DIAGNOSIS: 1. left carpal tunnel s yndrome 2. left cubital tunnel syndrome OPERATION PERFORMED: 1. left endoscopic carpal t unnel release 2. left ulnar nerve in situ release SURGEON: Alvarado Syed WINDOW CUTTER SURGEON: Dread Belle NEED FOR WINDOW CUTTER: The skilled assistance of Peter Belle PA-C was necessary during this case. He assiste d with every aspect of the operation including, but not limited to, proper and safe position ing of the patient, obtaining adequate surgical exposure, retraction of the ulnar nerve , the continual process of hemostasis during the procedure, and hieu gical wound closure and removal of the patient from the operating t able and returning the patient back to the [facility]. His assistance allowed me to perform the most sensitive and technical portions of this operation using 2 hands, thus e nhancing patient safety. This would not be possible withou t the help of a skilled transport assistant familiar with the procedure and capable of safely performing the a forementioned tasks. Our facility is not a teaching hospital, and as such , no surgical residents or interns were available to assist. ANESTHESIA: general anesthesia COMPLICATIONS: None. ESTIMATED BLOOD LOSS: 5 ml TOURNIQUET TIME: 25 minutes at 250 mmHg FINDINGS: Ulnar nerve was significant co mpressed at the cubital tunnel with an hour glass lesion noted. There was complete rele ase of the transverse carpal ligament. INDICATION FOR PROCEDURE: This is a 72 year old female with left c arpal and cubital tunnel syndrome that has been recalcitrant to conservative treatment options. Patient wishes to proceed with surgical release. Risks, benefits, and alternatives to the procedure were discussed with the patient in det ail preoperatively. Risks include, but not limited to, infection, damage t o blood vessels or nerves, stiffness of fingers, thumb, and wrist, and need for further surgery. Additionally, there is a chance that the procedure may be converted to an open procedure if there is inadeq uate visualization. There is also a chance that the ulnar nerve may have to be m mark to a different position. The patient verbalized understanding of these risk and consented to pro ceed. PROCEDURE IN DETAIL: Patient was identified in the pre-operat souleymane holding area. The patient was then brought to the Operating Room where a fo rmal time-out was performed to confirm the correct patient, site, and planned operation . General anesthesia was provided by the anesthesia team. A well-padded t ourniquet was placed on the upper arm. The patient's arm was prepped and dimitris ped in the usual sterile fashion. The hand was then exsanguinated and allyssa rniquet inflated. No perio- operative antibiotics was given. An approximately 1 cm transverse incision was th en made between the two volar wrist creases. The palmaris tendon was identified and the underlying fascia was opened with a tenotomy sciss or. A spatula was then inserted deep to the leading edge of the transverse carpal ligament to clean the tenosynovium off its undersurface. Sequential dil ators were placed into the carpal tunnel hugging the dominick of marquez. I inserted t he endoscope from the proximal end. I had excellent visualization of the proxima l and distal transverse carpal ligament. I released the ligament from distal to proximal. I was able to identify both leaflets after the release, confirming complete release. Proxim ally, the forearm fascia was released under direct visualization using tenoto my scissors. All instruments were then withdrawn from the wrist. The proximal incision was closed with a subcutaneous monocryl 4-0 suture and dermabond w as applied to the incisions. I turned my attention to the elbow. I be anusha with a longitudinal incision along the course of the nerve just posterior to the me dial epicondyle. I dissected carefully through skin and subcutaneous tissue. The medial antebrachial cutaneous nerve branches were carefully dissecte d free and vessel loop was placed around to protect the se branches. The nerve was identified proximally and a vessel loop placed around the nerve. I began t o release the nerve from proximally to distally, starting with the fascia l bands of the arcade of [place]. Proceeding distally the fascia of the cubital tunnel was released with Davison's ligament. Finally, the fa scia over the two heads of the FCU was incised. I made sure there w as no compression of the ulnar nerve proximally nor distally. The subcutaneous a nd dermal layer was closed with 2-0 vicryl sutures. A running 3-0 monocryl subcu ticular stitch was then placed followed by dermabond on the skin. A bulky soft dr essing was then placed and tourniquet was deflated. Patient was then reversed out of anesthesia and transferred to recovery room without any incident. Alvarado Syed Electronically Signed by Alvarado Syed MD on 05/14 at 0824 Addendum 1: 05/14/22 1139 by Alvarado Syed MD Electronically Signed by Alvarado Syed MD on 05/14 at 1140 [facility] #:[id number] END OF REPORT 2022-04-29 17:05:00-00:00 [id number] [place] [address] PATIENT NAME: CARL CALDERON ADMIT DATE: ACCOUNT NO: [id number] ROOM NO: AGE: 71 REPORT TYPE: ELECTROCARDIOGRAM SEX: F ADMITTING PHYSICIAN: ATTENDING PHYSICIAN:Alvarado Syed MD Order: [id number] Test Reason : PREOP CLEARANCE AGE>50 Test Date/Time Stamp: FriApr 29 2022 17:05:46 Blood Pressure : / mmHG Vent. Rate : 073 BPM Atrial Rate : 000 BPM P-R Int : 000 ms QRS Dur : 170 ms QT Int : 466 ms P-R-T Axes : 000 -65 078 degree s QTc Int : 513 ms atrial pacing with premature atrial beats Left axis deviation Left bundle branch block Abnormal ECG When compared with ECG of 25-FEB-2017 16:44, Atrial fibrillation has replaced Sinus rhythm Left bundle branch block is now present Confirmed by AMARILIS DELCID MD ([id number]) on 05/01/2022 12:47:34 PM Referred By: Alvarado Syed Confirmed by:AMARILIS DELCID MD PATIENT NAME: CARL CALDERON 2019-04-27 16:01:00-00:00 [id number] [place] [address] PATIENT NAME: CARL CALDERON ADMIT DATE: 04/19/19 ACCOUNT NO: [id number] ROOM NO: Y.506 AGE: 68 REPORT TYPE: DISCHARGE SUMMARY REPORT SEX: F ADMITTING PHYSICIAN:Kingsley Morrissey MD ATTENDING PHYSICIAN:Kingsley Morrissey MD ADMISSION DATE: 04/19/2019 DISCHARGE DATE: 04/21/2019 ADMITTING DIAGNOSIS: Infected left total knee ar throplasty. DISCHARGE DIAGNOSIS: Status post incision and drainage, poly change, left knee. OPERATIONS AND PROCEDURES: 04/19/2019, I and D w ith polyethylene change, left knee by Dr. Kingsley Morrissey. HOSPITAL COURSE: Above-listed procedure under general anesthesia with 25 mL of blood loss, no complications. Minimal findings o f acute infection at the time of surgery. Infectious disease consultat ion was obtained. PICC line was placed on the first postoperative day. Decision was mad e to complete a course of 2 weeks of intravenous antibiotics. The patient wa s mobilized with physical therapy, weightbearing as tolerated. Hem oglobin 9.9 on the first postoperative day. Infectious disease service recommended disc harge with ceftriaxone and daptomycin. Arrangements were made with home hea lt for administration of IV antibiotics. DISCHARGE INSTRUCTIONS: Activity is weightbearin g as tolerated. DISCHARGE MEDICATIONS: Aspirin 81 mg twice daily for 4 weeks for DVT prophylaxis and intravenous antibiotics as per recommendations from infectious disease service including ceftriaxone and daptom ycin. DIET: Usual. FOLLOWUP PLANS: With Dr. Kingsley Morrissey in 10 da ys. CONDITION: Stable. DISPOSITION: Discharged to home with home health services. Dictated By: Kingsley Morrissey MD WT: DS:LISE/HUSSEIN/MAHNAZ Conf#: [id number]#: [id number] PATIENT NAME: CARL CALDERON Authenticated by Kingsley Morrissey MD On 09:42:35 AM at 0942 PATIENT NAME: CARL CALDERON 2019-04-21 17:29:00-00:00 [facility] Clinical Note REPORT#:[id number] REPORT STATUS: Signed DATE:04/21/19 TIME: 172 PATIENT: CARL CALDERON UNIT #: [id number] ROOM/BED: [address] : 49 AGE: 68 SEX: F ATTEND: Rico Morrissey MD ADM AUTHOR: Kingsley Morrissey MD * ALL edits or amendments must be made on the el [employer]computer document * Clinical Note Note: POD #2 Feels OK. Amb in cardoso. Pain controled. PICC line placed yesterday. PE: Drsg D/I. No erythema. Last Documented: Result Date Time Pulse Ox 94 04/21 1630 FiO2 32 04/21 1630 O2 Delivery Nasal cannula 04/21 1630 O2 Flow Rate 3.311098 04/21 1630 B/P 132/77 04/21 1616 B/P Mean 95.1 04/21 1616 Temp 98.6 04/21 1616 Pulse 62 04/21 1616 Resp 18 04/21 1616 Home. OK with 2 weeks IV abx. at 1731 RPT #:[id number] END OF REPORT 2019-04-21 09:57:00-00:00 [facility] Infectious Dis. Progress Note REPORT#:[id number] REPORT STATUS: Signed DATE:04/21/19 TIME: 956 PATIENT: CARL CALDERON UNIT #: [id number] ROOM/BED: [address] : 49 AGE: 68 SEX: F ATTEND: Rico Morrissey MD ADM AUTHOR: Liset Seth MD * ALL edits or amendments must be made on the [employer]/computer document * Subjective Chief Complaint: L knee pain and swelling Patient reports: Yes: pain controlled. No: nausea, vomiting. Comments: Sitting up on edge of bed. Reports no fatigue. P ain is controlled though she does have discomfort with ambulation. PI CC placed yesterday without event. She is waiting contour sander back from [place] to set up teaching for home IV prior to DC. Objective General VS/I O: Last Documented: Result Date Time Pulse Ox 97 04/21 0742 B/P 149/76 04/21 0742 B/P Mean 100.1 04/21 0742 O2 Delivery Nasal cannula 04/21 07 Temp 36.9 04/21 0742 Pulse 68 04/21 0742 Resp 18 04/21 0742 FiO2 32 04/21 0008 O2 Flow Rate 3.039626 04/21 0008 Vital Signs Date Temp Pulse Resp B/P B/P Mean Pulse Ox FiO2 04/20-04/21 36.3-36.9 63-74 16-18 95-156/44-88 61.1-110.6 95-99 32 24 hour I O ending at 0700: 04/21 0700 04/20 1900 Intake Total 440.00 Output Total Balance 440.00 Intake, IV 200.00 Intake, Oral 240 Number Voids 3 2 Patient Weight Weight (lb): 217 Weight (oz): 2.49 Weight (kg): 98.43 Antibiotic start date: Antibiotic: Ceftriaxone Start Date: 04/20/19 Antibiotic: Daptomycin Start Date: 04/20/19 Physical Exam General appearance: alert, awake, no acute distr ess, pleasant, conversational Wound/incision: Location: LLE Site condition: dressing clean dry Head/Eyes: anicteric Neck: full range of motion Cardiovascular: normal heart sounds, regular rat e rhythm Respiratory: clear to auscultation (bilaterally) Abdomen: non-tender, normal bowel sounds, soft, no distention Extremities: no edema (except trace L ankle) Neuro/AIRCRAFT FUELER: alert, normal speech Skin: no rash Results Findings/Data: Laboratory Tests 04/21 04/21 04/20 04/20 04/20 0600 0500 2046 1636 1134 Chemistry POC Glucose (60 - 125 mg/dL) 113 97 189 H 135 H Total Creatine Kinase (26 - 192 Units/L) 47 Results: 04/19 Op cxs ngtd Treatment Prophylaxis Treatment Prophylaxis Lines: PICC CVC/PICC documentation: CVC/PICC insertion date/time : PICC single lumen Basilic vein Right Inserted 05/29 1400 Diagnosis, Assessment Plan Free Text A P: 68 yo woman with remote h/o L TKA admitted for p resumed infection. Joint aspirate performed on 04/02 while she was on abx for diverticulitis was culture negative but with increased inflammatory markers suggestive of joint infection. She underwent I D with liner exchange on 04/19/19. 1) Operative findings were minimal compared to h er initial sxs and aspirate results. Cultures thusfar remain ngtd. S he was off po abx for 7+ days prior to surgery (was on Augmentin for diverticulitis). P jo a short course on IV abx with possible addition of po subsequently depend ing on her clinical course. PICC placed. 2) Now CTX and Dapto. I am concerned about use o f vancomycin in her given her renal insufficiency. HH orders written. Baseline CPK normal. at [address] [place] [address] #:[phone] END OF REPORT 2019-04-21 08:44:00-00:00 [facility] Internal Medicine Prog. Note REPORT#:[id number] REPORT STATUS: Signed DATE:04/21/19 TIME: 843 PATIENT: CARL CALDERON UNIT #: [id number] AGE: 68 SEX: F ATTEND: Rico Morrissey MD ADM AUTHOR: Naman Bowden MD * ALL edits or amendments must be made on the [employer] document * Subjective Patient reports: no complaints, no abdom inal pain, no chest pain, no diarrhea, no dizziness (when getting OOB), no heartburn, n o nausea, no palpitation, no shortness of breath, no vomiting, feeling better , pain controlled Objective General VS/I O: Vital Signs Date Temp Pulse Resp B/P B/P Mean Pulse Ox FiO 2 04/20-04/21 97.3-98.4 63-74 16-18 95-156/44-88 61.1-110.6 95-99 32 Last Documented: Result Date Time Pulse Ox 97 04/21 0742 B/P 149/76 04/21 0742 B/P Mean 100.1 04/21 0742 O2 Delivery Nasal cannula 04/21 742 Temp 98.4 04/21 07 Pulse 68 04/21 0742 Resp 18 04/21 0742 FiO2 32 04/21 0008 O2 Flow Rate 3.707869 04/21 0008 24 hour I O ending at 0700: 04/21 0700 04/20 1900 Intake Total 440.00 Output Total Balance 440.00 Intake, IV 200.00 Intake, Oral 240 Number Voids 3 2 Patient Weight Weight (lb): 217 Weight (oz): 2.49 Weight (kg): 98.43 Post-op: day 2 Physical Exam General appearance: alert, awake, no acute distr ess Cardiovascular: normal heart sounds, regular rat e rhythm, no murmur Respiratory: clear to auscultation Abdomen: non-tender, normal bowel sounds, soft, no distention Genitourinary: no landaverde Extremities: Extremities: no calf tenderness, no edema Results Findings/Data: Laboratory Tests 04/21 04/21 04/20 04/20 04/20 0600 0500 2046 1636 1134 Chemistry POC Glucose (60 - 125 mg/dL) 113 97 189 H 135 H Total Creatine Kinase (26 - 192 Units/L) 47 Results: labs reviewed Diagnosis, Assessment Plan Problem List/A P: 1. Type 2 diabetes mellitus without complicatio ns 2. Essential (primary) hypertension 3. Atrial fibrillation 4. SSS (sick sinus syndrome) 5. SANDRA (obstructive sleep apnea) 6. Asthma 7. Infection of total left knee replacement Free Text DxA P Notes Free Text DxA P Notes: BS control is better. BP is mildly elevated this AM. Pt remains in a regular cardiac rhythm. Continue current treatment. Cont inue to mobilize. Electronically Signed by Naman Bowden MD on 06/29 at 0933 RPT #:[id number] END OF REPORT 2019-04-20 19:03:00-00:00 [facility] Internal Medicine Prog. Note REPORT#:[id number] REPORT STATUS: Signed DATE:04/20/19 TIME: 1902 PATIENT: CARL CALDERON UNIT #: [id number] ROOM/BED: [address] : 49 AGE: 68 SEX: F ATTEND: Rico Morrissey MD ADM AUTHOR: Naman Bowden MD * ALL edits or amendments must be made on the [employer]/computer document * Subjective Patient reports: no complaints, no abdom inal pain, no chest pain, no diarrhea, no dizziness (when getting OOB), no heartburn, n o nausea, no palpitation, no shortness of breath, no vomiting, feeling better , pain controlled Objective General VS/I O: Vital Signs Date Temp Pulse Resp B/P B/P Mean Pulse Ox FiO2 04/19-04/20 97.7-98.1 63-83 16-18 95-145/44-80 61.1-100.3 95-98 32 Last Documented: Result Date Time Pulse Ox 95 04/20 1630 FiO2 32 04/20 1630 O2 Delivery Nasal cannula 04/20 1630 O2 Flow Rate 3.830235 04/20 1630 B/P 95/44 09/10 1528 B/P Mean 61.1 04/20 152 Temp 98.1 04/20 1528 Pulse 63 04/20 1528 Resp 18 04/20 152 24 hour I O ending at 0700: 04/20 0700 04/19 1900 Intake Total 1580.00 100.00 Output Total Balance 1580.00 100.00 Intake, IV 1100.00 100.00 Intake, Oral 480 Number Voids 2 Patient 217 lb Weight Weight Standing scale Measurement Method Patient Weight Weight (lb): 217 Weight (oz): 2.49 Weight (kg): 98.43 Post-op: day 1 Physical Exam General appearance: alert, awake, no acute distr ess Cardiovascular: normal heart sounds, regular rat e rhythm, no murmur Respiratory: clear to auscultation Abdomen: non-tender, normal bowel sounds, soft, no distention Genitourinary: no landaverde Extremities: Extremities: no calf tenderness, no edema Results Findings/Data: Laboratory Tests 04/20/19 0445: [Embedded Image Not Available] Laboratory Tests 04/20 04/20 04/20 04/20 04/19 1636 1134 0621 0445 2046 Chemistry Sodium (136 - 145 mmol/L) 141 Potassium (3.5 - 5.1 mmol/L) 4.7 Chloride (98 - 107 mmol/L) 108.0 H Carbon Dioxide (21 - 32 mmol/L) 20.8 L BUN (7 - 18 mg/dL) 21 H Creatinine (0.55 - 1.30 mg/dL) 1.18 Glomerular Filtr Rate (>60) 45.4 Glucose (70 - 110 mg/dL) 134 H POC Glucose (60 - 125 mg/dL) 189 H 135 H 131 H 181 H Calcium (8.2 - 10.1 mg/dL) 8.0 L Laboratory Tests 04/20 445 Hematology Hgb (12 - 16 g/dL) 9.9 L Hct (37 - 47 %) 30.2 L Results: labs reviewed Diagnosis, Assessment Plan Problem List/A P: 1. Type 2 diabetes mellitus without complicatio ns 2. Essential (primary) hypertension 3. Atrial fibrillation 4. SSS (sick sinus syndrome) 5. SANDRA (obstructive sleep apnea) 6. Asthma 7. CKD (chronic kidney disease) stage 3, GFR 30 -59 ml/min 8. Infection of total left knee replacement Free Text DxA P Notes Free Text DxA P Notes: Pt's BS's remain elevated. Her renal fct has imp roved and is adequate enough for the pt to restart metformin. Pt's BP is low normal this evening. Pt remains i a regular cardiac rhythm. Pt has mild acute blood loss anemia from surgery. Continue current treatment. Continue to mobilize. Electronically Signed by Naman Bowden MD on 05/29 at 2022 RPT #:[id number] END OF REPORT 2019-04-20 12:40:00-00:00 [facility] Clinical Note REPORT#:[id number] REPORT STATUS: Signed DATE:04/20/19 TIME: 1240 PATIENT: CARL CALDERON UNIT #: [id number] ROOM/BED: [address] : 49 AGE: 68 SEX: F ATTEND: Rico Morrissey MD ADM AUTHOR: Kingsley Morrissey MD * ALL edits or amendments must be made on the [employer]/computer document * Clinical Note Note: POD #1 Feels ok. Amb in cardoso. Pain controlled. PE: Last Documented: Result Date Time Pulse Ox 95 04/20 1136 B/P 135/80 04/20 1136 B/P Mean 98.2 04/20 113 O2 Delivery Room air 04/20 113 Temp 97.7 04/20 1136 Pulse 74 04/20 1136 Resp 18 04/20 1136 FiO2 32 04/20 0745 O2 Flow Rate 3.488445 04/20 0745 Drsg D/I. Foot NVI. Laboratory Tests: 04/20 04/20 04/20 04/19 1134 0621 0445 2046 Chemistry Sodium (136 - 145 mmol/L) 141 Potassium (3.5 - 5.1 mmol/L) 4.7 Chloride (98 - 107 mmol/L) 108.0 H Carbon Dioxide (21 - 32 mmol/L) 20.8 L BUN (7 - 18 mg/dL) 21 H Creatinine (0.55 - 1.30 mg/dL) 1.18 Glomerular Filtr Rate (>60) 45.4 Glucose (70 - 110 mg/dL) 134 H POC Glucose (60 - 125 mg/dL) 135 H 131 H 181 H Calcium (8.2 - 10.1 mg/dL) 8.0 L Hematology Hgb (12 - 16 g/dL) 9.9 L Hct (37 - 47 %) 30.2 L D/W ID service. Plan for PICC line. Plan shorter duration IV abx, 2-3 weeks. Follow cxs. Prob d/c home tomorrow. at 1242 RPT #:[id number] END OF REPORT 2019-04-20 09:35:00-00:00 [facility] Infectious Dis. Progress Note REPORT#:[id number] REPORT STATUS: Signed DATE:04/20/19 TIME: 934 PATIENT: CARL CALDEORN UNIT #: [id number] ROOM/BED: [address] : 49 AGE: 68 SEX: F ATTEND: Rico Morrissey MD ADM AUTHOR: Liset Seth MD * ALL edits or amendments must be made on the [employer] document * Subjective Chief Complaint: L knee pain and swelling Patient reports: Yes: pain controlled. No: nausea, vomiting. Comments: Pt reports quiet night. No pain when she is immo bile. Discomfort is notable once she starts to move around. Objective General VS/I O: Last Documented: Result Date Time Pulse Ox 98 04/20 731 B/P 132/79 04/20 731 B/P Mean 96.4 04/20 731 O2 Delivery Nasal cannula 04/20 731 Temp 36.7 04/20 731 Pulse 76 04/20 731 Resp 18 04/20 731 FiO2 32 04/20 0008 O2 Flow Rate 3.971184 04/20 0008 Vital Signs Date Temp Pulse Resp B/P B/P Mean Pulse Ox FiO2 04/19-04/20 36.4-36.7 60-83 15-20 129-181/65-79 94.4-100.3 95-100 32 24 hour I O ending at 0700: 09/10 0700 04/19 1900 Intake Total 1580.00 100.00 Output Total Balance 1580.00 100.00 Intake, IV 1100.00 100.00 Intake, Oral 480 Number Voids 2 Patient 98.43 kg Weight Weight Standing scale Measurement Method Patient Weight Weight (lb): 217 Weight (oz): 2.49 Weight (kg): 98.43 Antibiotic start date: Antibiotic: Ancef Start Date: 04/19/19 Physical Exam General appearance: alert, no acute distress, pl easant, conversational Wound/incision: Location: RLE Site condition: dressing clean dry Head/Eyes: anicteric, small areas of erythema on cheeks bilaterally R>L that pt states are from her CPAP mask use overnight ENT: + NC O2 Neck: full range of motion Cardiovascular: normal heart sounds, regular rat e rhythm Respiratory: clear to auscultation (anteriorly) Abdomen: non-tender, normal bowel sounds, soft, no distention Extremities: no edema Neuro/AIRCRAFT FUELER: alert, normal speech Skin: no rash Results Findings/Data: Laboratory Tests 04/205 6 Chemistry Sodium (136 - 145 mmol/L) 141 Potassium (3.5 - 5.1 mmol/L) 4.7 Chloride (98 - 107 mmol/L) 108.0 H Carbon Dioxide (21 - 32 mmol/L) 20.8 L BUN (7 - 18 mg/dL) 21 H Creatinine (0.55 - 1.30 mg/dL) 1.18 Glomerular Filtr Rate (>60) 45.4 Glucose (70 - 110 mg/dL) 134 H POC Glucose (60 - 125 mg/dL) 131 H 181 H Calcium (8.2 - 10.1 mg/dL) 8.0 L Laboratory Tests 04/20 445 Hematology Hgb (12 - 16 g/dL) 9.9 L Hct (37 - 47 %) 30.2 L Results: 04/19 Op cxs ngtd Treatment Prophylaxis Treatment Prophylaxis Lines: peripheral Diagnosis, Assessment Plan Free Text A P: 68 yo woman with remote h/o L TKA admitted for p resumed infection. Joint aspirate performed on 04/02 while she was on abx for diverticulitis was culture negative but with increased inflammatory markers suggestive of joint infection. She underwent I D with liner exchange on 04/19/19. 1) Discussed with Dr Stocks this AM. Operative f indings were minimal compared to her initial sxs and aspirate results. Cultures thusfar are ngtd though have not been in lab long. She was off po abx for 7+ days prior to surgery (was on Augmentin for diverticulitis ). We agree it would be reasonable to do at least a short course on IV abx with possible addition of po subsequently depending on her clinical course. PICC placement ordered. 2) Plan to change abx to CTX and Dapto. I am concerned about use of vancomycin in her given her renal insuf ficiency which has historically been a little bit of a moving target. Will write tentative HH orders today. at 0942 RPT #:[id number] END OF REPORT 2019-04-20 09:35:00-00:00 [facility] Infectious Dis. Progress Note REPORT#:[id number] REPORT STATUS: Signed DATE:04/20/19 TIME: 934 PATIENT: CARL CALDERON UNIT #: [id number] ROOM/BED: [address] : 49 AGE: 68 SEX: F ATTEND: Rico Morrissey MD ADM AUTHOR: Liset Seth MD * ALL edits or amendments must be made on the [employer]/computer document * See Addendum Subjective Chief Complaint: L knee pain and swelling Patient reports: Yes: pain controlled. No: nausea, vomiting. Comments: Pt reports quiet night. No pain when she is immo bile. Discomfort is notable once she starts to move around. Objective General VS/I O: Last Documented: Result Date Time Pulse Ox 98 04/20 731 B/P 132/79 04/20 731 B/P Mean 96.4 04/20 731 O2 Delivery Nasal cannula 04/20 731 Temp 36.7 04/20 731 Pulse 76 04/20 731 Resp 18 04/20 731 FiO2 32 04/20 0008 O2 Flow Rate 3.510741 04/20 0008 Vital Signs Date Temp Pulse Resp B/P B/P Mean Pulse Ox FiO2 04/19-04/20 36.4-36.7 60-83 15-20 129-181/65-79 94.4-100.3 95-100 32 24 hour I O ending at 0700: 04/20 0700 04/19 1900 Intake Total 1580.00 100.00 Output Total Balance 1580.00 100.00 Intake, IV 1100.00 100.00 Intake, Oral 480 Number Voids 2 Patient 98.43 kg Weight Weight Standing scale Measurement Method Patient Weight Weight (lb): 217 Weight (oz): 2.49 Weight (kg): 98.43 Antibiotic start date: Antibiotic: Ancef Start Date: 04/19/19 Physical Exam General appearance: alert, no acute distress, pl easant, conversational Wound/incision: Location: RLE Site condition: dressing clean dry Head/Eyes: anicteric, small areas of erythema on cheeks bilaterally R>L that pt states are from her CPAP mask use overnight ENT: + NC O2 Neck: full range of motion Cardiovascular: normal heart sounds, regular rat e rhythm Respiratory: clear to auscultation (anteriorly) Abdomen: non-tender, normal bowel sounds, soft, no distention Extremities: no edema Neuro/AIRCRAFT FUELER: alert, normal speech Skin: no rash Results Findings/Data: Laboratory Tests 04/205 2045 Chemistry Sodium (136 - 145 mmol/L) 141 Potassium (3.5 - 5.1 mmol/L) 4.7 Chloride (98 - 107 mmol/L) 108.0 H Carbon Dioxide (21 - 32 mmol/L) 20.8 L BUN (7 - 18 mg/dL) 21 H Creatinine (0.55 - 1.30 mg/dL) 1.18 Glomerular Filtr Rate (>60) 45.4 Glucose (70 - 110 mg/dL) 134 H POC Glucose (60 - 125 mg/dL) 131 H 181 H Calcium (8.2 - 10.1 mg/dL) 8.0 L Laboratory Tests 04/20 445 Hematology Hgb (12 - 16 g/dL) 9.9 L Hct (37 - 47 %) 30.2 L Results: 04/19 Op cxs ngtd Treatment Prophylaxis Treatment Prophylaxis Lines: peripheral Diagnosis, Assessment Plan Free Text A P: 68 yo woman with remote h/o L TKA admitted for p resumed infection. Joint aspirate performed on 04/02 while she was on abx for diverticulitis was culture negative but with increased inflammatory markers suggestive of joint infection. She underwent I D with liner exchange on 04/19/19. 1) Discussed with Dr Morrissey this AM. Operative f indings were minimal compared to her initial sxs and aspirate results. Cultures thusfar are ngtd though have not been in lab long. She was off po abx for 7+ days prior to surgery (was on Augmentin for diverticulitis ). We agree it would be reasonable to do at least a short course on IV abx with possible addition of po subsequently depending on her clinical course. PICC placement ordered. 2) Plan to change abx to CTX and Dapto. I am concerned about use of vancomycin in her given her renal insuf ficiency which has historically been a little bit of a moving target. Will write tentative HH orders today. at 0942 Addendum 1: 04/21/19 1024 by Liset Seth MD Exam section inadvertantly documented as RLE - b andage/procedure on LLE at 1025 RPT #:[id number] END OF REPORT 2019-04-19 20:06:00-00:00 [facility] Infect Disease Consult Note REPORT#:[id number] REPORT STATUS: Signed DATE:04/19/19 TIME: 2005 PATIENT: CARL CALDERON UNIT #: [id number] [facility] AGE: 68 SEX: F ATTEND: Rico Morrissey MD ADM AUTHOR: Liset Seth MD * ALL edits or amendments must be made on the el [employer]/computer document * History of Present Illness Requesting Clinician: Shelby Reason for consult: L TKA infection Chief complaint: L knee pain and swelling Free Text HPI Notes Free Text HPI Notes: 68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 Symptoms resolved spontaneously before she was able to make it in for an appt with Dr Morrissey for evaluation. She reports her knee felt fi ne over the next month or so - in early March, she was diagnosed with her first episode of divertic ulitis. She was given abx for 10-14 days for this with improvement in abdomina l sxs. Towards the end of her abx course for diverticuliti s, she developed recurrent L knee swelling and pain such that she presented to Dr Morrissey for evaluat ion. L knee aspiration was perfor med on 04/02 while the pt was completing her abx for diverticulitis and showed ev idence of possible infection with increased WBC's as well as a positive Synovasure per report . She was admitted to the hospital 04/19 and underwent I D with liner exchange. At the ti me of admission, she had been off oral abx for at least 7 days. At present, pt reports minimal pain and no nause a. is present at bedside. History - Adult longitudinal Past medical history: Reports: Atrial fib/flutter, Diabetes mellitus, Hypertension. Past surgical history: Reports: Cholecystectomy, Knee procedure. Additional surgical history: Pacemaker Alcohol use: Denies EtOH use Smoking status for patients 13 years old or olde r: Never Smoker Medications: Home Medications: Medication Dose/Rte/Freq Days Qty Entered Last Max Daily Dose Reviewed METOPROLOL SUCC XL 150 MG PO DAILY AM 01/08/12 04/19/19 (TOPROL XL) 1014 1056 Strength: 100 MG TAB.SA SERTRALINE (ZOLOFT) 50 MG PO BEDTIME 01/08/12 0 04/19/19 Strength: 50 MG TAB 1015 1056 MONTELUKAST (SINGULAIR) 10 MG PO DAILY AM 01/2104/19/19 Strength: 10 MG TAB 0947 1056 IRBESARTAN (AVAPRO) 300 MG PO DAILY PM 11/07/15 04/19/19 Strength: 300 MG TAB 1635 1056 metFORMIN (GLUCOPHAGE) 500 MG PO BID 11/07/15 0 04/19/19 Strength: 1,000 MG TAB 1636 1056 LEVOTHYROXINE 125 MCG PO DAILY AM 11/07/1504/29 (SYNTHROID) 1637 1056 Strength: 125 MCG TAB APIXABAN (ELIQUIS) 5 MG PO BID 11/07/15 9 Strength: 5 MG TAB 1638 1056 FLECAINIDE (TAMBOCOR) 100 MG PO BID 11/07/15 Strength: 50 MG TAB 1711 1056 [TRADJENTA] 1 TAB PO DAILY 04/08/19 04/19/19 Strength: 5 MG 1625 1056 ALLOPURINOL (ZYLOPRIM) 100 MG PO BID 04/08/19 0 04/19/19 Strength: 100 MG TAB 1626 1056 FENOFIBRATE (TRICOR) 145 MG PO DAILY 04/08/19 0 04/19/19 Strength: 145 MG TAB 1632 1056 FUROSEMIDE (LASIX) 40 MG PO EOD 04/08/19 Strength: 40 MG TAB 1733 1056 DILTIAZEM CD 360 MG PO DAILY AM 04/08/19 (CARDIZEM CD) 1733 1056 Strength: 360 MG CAP.SR.24H CHOLECALCIFEROL 1,000 UNITS PO BID 11/07/1504/29 (VITAMIN D3) 1704 1056 (VITAMIN D3) Strength: 1,000 UNITS CAP BECLOMETHASONE 2 PUFF INH 11/08/15 04/19/19 (QVAR 40 MCG/ACT) RTBID PRN ASTHMA 0655 1056 Strength: 7.3 GM INHALER CALCIUM CITRATE 1,000 MG PO DAILY 02/25/1704/29 (CALCITRATE) 1805 1056 Strength: 200 MG TAB predniSONE 10 MG PO 02/25/17 04/19/19 Strength: 20 MG TAB DAILY PRN PRN GOUT 1805 1056 Current Hospital Medications: Ahfs Category Unknown Sig/Chante Start time Last Medication Dose Route Stop Time Status Admin Patient Own See Dose DAILY 04/20 900 AC Medication Insts (1) PO 05/20 901 (PATIENT'S OWN MEDICATION) Patient Own See Dose BID 04/19 2000 AC Medication Insts (2) PO 05/19 2001 (PATIENT'S OWN MEDICATION) Anti-Infective Agents Sig/Chante Start time Last Medication Dose Route Stop Time Status Admin Cefazolin Sodium 2 GM Q8H 04/19 1830 AC 04/19 (KEFZOL) IV 04/20 1031 1747 Vancomycin HCl 0 .STK-MED ONE 04/19 1232 DC (VANCOMYCIN HCL) IV Cefazolin Sodium 2 GM ONCALL 04/19 0500 DC (KEFZOL) IV 04/19 2300 Antihistamine Drugs Sig/Chante Start time Last Medication Dose Route Stop Time Status Admin Diphenhydramine HCl 12.5 MG PACU STAT 04/19 134 3 DC 04/19 (BENADRYL) IV 04/19 2300 1350 Diphenhydramine HCl 25 MG Q4H PRN PRN 04/19 124 5 CAN (BENADRYL) PO 05/19 1246 Autonomic Drugs Sig/Chante Start time Last Medication Dose Route Stop Time Status Admin Albuterol Sulfate 2.5 MG RTQ4H PRN PRN 04/19 18 30 AC (PROVENTIL) INH 05/19 1831 Methocarbamol 750 MG Q6HR 04/19 1800 AC 04/19 (ROBAXIN-750) PO 05/19 1801 1746 Albuterol Sulfate 2.5 MG RTSTAT 04/19 1343 DC 0 04/19 (PROVENTIL) INH 04/19 2300 1351 Methocarbamol 500 MG PACU ONCE PRN 04/19 0700 D C (ROBAXIN) PO 04/20 06 Methocarbamol 500 MG PREOP ONCE 04/19 0500 DC 0 04/19 (ROBAXIN) PO 04/19 2300 1052 Blood Formation,Coagulation Sig/Chante Start time Last Medication Dose Route Stop Time Status Admin Apixaban 5 MG BID 6A 6P 04/20 600 AC (Eliquis) PO 05/20 06 Cardiovascular Drugs Sig/Chante Start time Last Medication Dose Route Stop Time Status Admin Diltiazem HCl 360 MG DAILY 04/20 900 AC (CARDIZEM CD) PO 05/20 901 Fenofibrate 160 MG DAILY 04/20 900 AC (Fenofibrate) PO 05/20 901 Losartan Potassium 100 MG DAILY 04/20 900 AC (COZAAR) PO 05/20 901 Metoprolol Succinate 150 MG DAILY 04/20 900 A C (TOPROL XL) PO 05/20 901 Hydralazine HCl 10 MG PACU Q10MIN PRN PRN 04/19 0700 DC 04/19 (hydrALAZINE HCL) IV 04/20 06 1412 Metoprolol Tartrate 2 MG PACU Q10MIN PRN PRN 0700 DC (LOPRESSOR) IV 04/20 0600 Lidocaine HCl 2 ML PREOP 04/19 0500 DC 04/19 (XYLOCAINE) IV 04/19 2300 1052 Central Nervous System Agents Sig/Chante Start time Last Medication Dose Route Stop Time Status Admin Sertraline HCl 50 MG BEDTIME 04/19 2100 AC (ZOLOFT) PO 05/19 2101 Acetaminophen 650 MG Q4H PRN PRN 04/19 1245 AC (TYLENOL) PO 05/19 1246 Hydrocodone Bitart/ 1 UDTAB Q4H PRN PRN 04/19 1 245 AC Acetaminophen PO 04/29 1246 (NORCO 5/325 TABLET) Hydrocodone Bitart/ 1 UDTAB Q4H PRN PRN 04/19 1 245 AC Acetaminophen PO 04/29 1246 (NORCO 10/325 TABLET) Hydromorphone HCl 0.5 MG Q3H PRN PRN 04/19 1245 AC (DILAUDID) IV 04/26 1246 Hydroxyzine 25 MG Q4H PRN PRN 04/19 1245 AC (ATARAX) PO 05/19 1246 Promethazine HCl 12.5 MG Q6H PRN PRN 04/19 1245 AC (PHENERGAN) IM 05/19 1246 Trazodone HCl 25 MG BEDTIME PRN PRN 04/19 1245 AC (DESYREL) PO 05/19 1246 Zolpidem Tartrate 5 MG BEDTIME PRN PRN 04/19 12 45 CAN (AMBIEN) PO 04/26 1246 Morphine Sulfate 0 .STK-MED ONE 04/19 1047 DCr (morphine SULFATE .ROUTE INJECTION) Fentanyl Citrate 25 MCG PACU Q5MIN PRN PRN 07 DC 04/19 (SUBLIMAZE) IV 04/20 06 1342 Hydromorphone HCl 0.4 MG PACU Q5MIN PRN PRN 0700 DC (DILAUDID) IV 04/20 06 Promethazine HCl 6.25 MG PACU Q15MIN PRN PRN 07 DC (PHENERGAN) IV 04/20 0600 Ketorolac 0 .STK-MED ONE 04/19 0551 DC Tromethamine .ROUTE (TORADOL) Acetaminophen 650 MG PREOP ONCE 04/19 0500 DC 0 04/19 (TYLENOL) PO 04/19 2300 1053 Pregabalin 50 MG PREOP 04/19 0500 DC 04/19 (LYRICA) PO 04/19 2300 1052 Electrolytic, Caloric, And Raheem Sig/Chante Start time Last Medication Dose Route Stop Time Status Admin Furosemide 40 MG Q48HR 04/21 0900 AC (LASIX) PO 05/21 09 Dextrose/Water 50 ML ASDIR PRN 04/19 1830 AC (DEXTROSE IN WATER) IV 05/19 183 Sodium Chloride 20 ML Q8H 04/19 1830 AC 04/19 (SODIUM CHLORIDE) IV 04/20 1031 1747 Sodium Chloride 1,000 ML .Q10H 04/19 1730 AC (SODIUM CHLORIDE IV 05/19 173 1746 0.9%) Sodium Chloride 250 ML .STK-MED ONE 04/19 1232 DC (SODIUM CHLORIDE IV 0.9%) Lactated Ringer's 1,000 ML PREOP IV FLUID 04/19 0500 DC 04/19 (LACTATED RINGERS) IV 04/19 230 1052 Eye, Ear, Nose And Throat (Een Sig/Chante Start time Last Medication Dose Route Stop Time Status Admin Dexamethasone Sodium 10 MG 1200 04/20 1200 AC Phosphate IV 04/20 1400 (DEXAMETHASONE SODIUM PHOSPHATE) Bacitracin 0 .STK-MED ONE 04/19 0552 DC (BACITRACIN STERILE) IM Gastrointestinal Drugs Sig/Chante Start time Last Medication Dose Route Stop Time Status Admin Famotidine 40 MG DAILY 04/20 0900 AC (PEPCID) PO 05/20 09 Docusate Sodium 100 MG BID 04/19 2100 AC (COLACE) PO 05/19 2101 Al Hydrox/Mg Hydrox/ 30 ML Q6H PRN PRN 04/19 12 45 AC Simethicone PO 05/19 1246 (MAALOX PLUS) Bisacodyl 10 MG BEDTIME PRN PRN 04/19 1245 AC (BISACODYL 10 MG RECTAL 05/19 1246 SUPP) Magnesium Hydroxide 30 ML BEDTIME PRN PRN 04/19 1245 AC (MILK OF MAGNESIA) PO 05/19 1246 Ondansetron HCl 4 MG Q8H PRN PRN 04/19 1245 AC (ZOFRAN) IV 05/19 1246 Ondansetron HCl 4 MG Q8H PRN PRN 04/19 1245 AC (ONDANSETRON HCL) PO 05/19 1246 Ondansetron HCl 4 MG PACU ONCE PRN PRN 04/19 07 00 DC (ZOFRAN) IV 04/20 0600 Hormones And Synthetic Substit Sig/Chante Start time Last Medication Dose Route Stop Time Status Admin Levothyroxine Sodium 125 MCG DAILY 0600 04/20 0 600 AC (Synthroid) PO 05/20 06 Insulin Human Lispro See Dose AC HS 04/19 2100 AC (HumaLOG 100 UNITS/ Insts (3) SUBQ 05/19 210 ML 3 ML VIAL) Prednisone 10 MG DAILY PRN PRN 04/19 1545 AC (DELTASONE) PO 05/19 1546 Local Anesthetics (Parenteral) Sig/Chante Start time Last Medication Dose Route Stop Time Status Admin Ropivacaine 0 .STK-MED ONE 04/19 0552 DC (NAROPIN) .ROUTE Miscellaneous Therapeutic Agen Sig/Chante Start time Last Medication Dose Route Stop Time Status Admin Montelukast Sodium 10 MG DAILY 04/20 0900 AC (SINGULAIR) PO 05/20 09 Allopurinol 100 MG BID 04/19 2100 AC (ZYLOPRIM) PO 05/19 210 Tramadol HCl 50 MG Q4HR 04/19 1700 AC 04/19 (ULTRAM) PO 04/26 1701 1747 Tramadol HCl 50 MG Q6H PRN PRN 04/19 0700 DC (ULTRAM) PO 04/20 0600 Tramadol HCl 100 MG Q6H PRN PRN 04/19 0700 DC (ULTRAM) PO 04/20 0600 Other Sig/Chante Start time Last Medication Dose Route Stop Time Status Admin Pharmacy Profile Note See Dose Q2HR 04/19 1700 DC (CLARIFICATION Insts (4) PO 05/19 170 NEEDED) Pharmacy Profile Note See Dose Q2HR 04/19 1700 DC (CLARIFICATION Insts (5) PO 05/19 170 NEEDED) Pharmacy Profile Note See Dose Q2HR 04/19 1700 AC (CLARIFICATION Insts (6) PO 05/19 170 NEEDED) Pharmacy Profile Note See Dose Q2HR 04/19 1700 AC (CLARIFICATION Insts (7) PO 05/19 170 NEEDED) Dose Instructions: (1)Patient Own Medication (PATIENT'S OWN MEDICAT ION): TRADJENTA 5 MG TABLET DOSE = 1 TABLET (2)Patient Own Medication (PATIENT'S OWN MEDICAT ION): FLECAINIDE 100 MG TABLET DOSE = 1 TABLET (3)Insulin Human Lispro (HumaLOG 100 UNITS/ML 3 ML VIAL): PER SLIDING SCALE (4)Pharmacy Profile Note (CLARIFICATION NEEDED): TRADJENTA Nurse Do not delete this Rx. Pharmacy will delete. To remove the admin time, use FD (full document) Given = No (5)Pharmacy Profile Note (CLARIFICATION NEEDED): FLECAINIDE 100 MG Nurse Do not delete this Rx. Pharmacy will delete. To remove the admin time, use FD (full document) Given = No (6)Pharmacy Profile Note (CLARIFICATION NEEDED): QVAR 40 MCG/ACT Nurse Do not delete this Rx. Pharmacy will delete. To remove the admin time, use FD (full document) Given = No (7)Pharmacy Profile Note (CLARIFICATION NEEDED): METFORMIN 500 MG Nurse Do not delete this Rx. Pharmacy will delete. 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 Skin: Denies: itching. Allergy/Immun: Denies sneezing Eyes: Denies redness, Denies discharge ENT: Denies: sinus problem. Respiratory: Denies: productive cough (sputum), SOB. Cardiovascular: Denies: chest pain. GI: Denies: abdominal pain, nausea, vomiting. Musculoskeletal: Reports: joint pain. Neuro: Denies: confusion. Objective General VS/I O: Last Documented: Result Date Time Pulse Ox 96 04/19 1945 B/P 139/76 04/19 1945 B/P Mean 96.9 04/19 1945 Temp 36.5 04/19 1945 Pulse 82 04/19 1945 Resp 16 04/19 1945 O2 Delivery CPAP 04/19 1531 FiO2 32 04/19 1438 O2 Flow Rate 3.483521 04/19 1438 Vital Signs Date Temp Pulse Resp B/P B/P Mean Pulse Ox FiO 2 04/19 36.4-36.7 60-82 15-20 135-181/65-79 95.6- 96.9 95-100 32 Patient Weight Weight (lb): 217 Weight (oz): 2.49 Weight (kg): 98.43 Antibiotic comments: Ancef 2g IV q8 Physical Exam General appearance: alert, awake, no acute distr ess, pleasant Wound/incision: Location: L knee Site condition: dressing clean dry Head/eyes: anicteric ENT: + NC O2 Neck: full range of motion Cardiovascular: normal heart sounds, No tachycar romeo Respiratory: clear to auscultation (anteriorly) Abdomen: non-tender, normal bowel sounds, soft, no distention Extremities: trace LLE edema, leg wrapped Neuro/AIRCRAFT FUELER: alert, normal speech Skin: no rash Results Results: 04/02 L knee cxs negative/ngtd 04/19 L kne e Op cxs pending Treatment Prophylaxis Treatment Prophylaxis Lines: peripheral Diagnosis, Assessment Plan Free Text DxA P Notes Free text DxA P notes: 68 yo woman with remote h/o L TKA admitted for p resumed infection. Joint aspirate performed on 04/02 while she was on abx for diverticulitis was culture negative but with increased inflammatory markers suggestive of joint infection. She underwent I D with liner exchange on 04/19/19. 1) On eduardo-op Ancef for now. Decrease dose given her reduced CrCl. 2) Will need to d/w Dr Hood s plan for IV abx - note suggests he is in favor of slightly shorter course of IV abx followed jamar chacon by po as operative findings were minimal. If operative cxs are positive, will tailor abx to those results. She will have drug interactions with fl ecainide and quinolones po. Her reduced CrCl may also make abx (IV or po) ch allenging. 3) Possible PICC placement after d/w Dr Morrissey. She does have a pacemaker in place which will limit IV access options. at 2053 RPT #:[id number] END OF REPORT 2019-04-19 18:24:00-00:00 [id number] [facility] [address] [place] [address] PATIENT NAME: CARL CALDERON ADMIT DATE: 04/19/19 ACCOUNT NO: [id number] ROOM NO: [id number] AGE: 68 REPORT TYPE: CONSULTATION REPORT SEX: F ADMITTING PHYSICIAN:Kingsley Morrissey MD ATTENDING PHYSICIAN:Kingsley Morrissey MD CONSULTATION DATE: 04/19/2019 CONSULTING PHYSICIAN: Naman Bowden MD MEDICINE CONSULTATION ATTENDING PHYSICIAN: Kingsley Morrissey MD. CONSULTING PHYSICIAN: Naman Bowden MD. REASON FOR CONSULTATION: Pos toperative medical evaluation and management of the patient with multiple medical problems. HISTORY OF PRESENT ILLNESS: The patient is a 68- year-old white female with an infected left total knee arthroplasty, who under went removal of the infected hardware and placement of an antibiotic spacer e ulises today. The patient tolerated surgery well. She currently denies any chest pain, shortness of breath, nausea, or vomiting. She has adequate pain control at the present time. She denies any lightheadedn ess when getting up to walk earlier this afternoon. PAST MEDICAL HISTORY: Adult-onset diabet es mellitus for 5 years. No history of complications. The patient also has hypertension , obstructive sleep apnea, asthma, chronic kidney disease stage III, atrial fibrillation, sick sinus syndrome for which she underwent pacemaker place ment, hypothyroidism, gout, diverticulosis, hemorrhoids, iron deficiency ane radhika and hot flashes. The patient denies any coronary artery disease, congestive heart failure, history of deep venous thrombosis. PAST SURGICAL HISTORY: Abdominal surgery. Knee a rthroscopy. Cholecystectomy. Bilateral total knee arthroplasties. . Fundoplication. Right kidney surgery. Herniorrhaphy. Carpal tunnel release. C ardiac ablation. Trigger finger release. ALLERGIES: CODEINE, PENTAZOCINE, MEPERIDINE, XAR ELTO. CURRENT MEDICATIONS: Tradjenta 5 mg daily, Eliqu is 5 mg b.i.d. (on hold), diltiazem CD 360 mg q.a.m., fenofibrate 145 mg daily, flecainide 100 mg b.i.d., irbesartan 300 mg q.p.m., metoprolol suc cinate 150 mg q.a.m., sertraline 50 mg at bedtime, calcium citrate 1000 mg daily, furos emide 40 mg every other day, QVAR 40 mcg 2 puffs b.i.d. p.r.n. asthma, Synthr oid 125 mcg q.a.m., metformin 500 mg b.i.d., allopurinol 100 mg b.i.d., dameon ukast 10 mg q.a.m., vitamin D 1000 units 2 b.i.d. PATIENT NAME: CARL CALDERON FAMILY HISTORY: Mother had breast cancer. 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 She does not smoke or drink alcohol. REVIEW OF SYSTEMS: The patie nt reports having intermittent bright red blood per rectum due to her hemorrhoid s. She denies any exertional chest pain, dyspnea on exertion, orthopnea, PND, black tarry stools, or dysuria. PHYSICAL EXAMINATION: GENERAL: Well-developed, obese white female in n o apparent distress. VITAL SIGNS: Pulse 80 and regular, respirations 17, blood pressure 135/76, temperature 97.5, oxygen saturation 93% on room air. EYES: EOMI. PERRLA. Sclerae are anicteric. OROPHARYNX: Clear. NECK: No adenopathy, thyromegaly, masses, tender ness, JVD, or carotid bruits. LUNGS: Clear to auscultation. HEART: Regular rate and rhythm without murmurs, gallops, or rubs. ABDOMEN: Obese. Bowel sounds present throughout. No hepatosplenomegaly, masses, tenderness, bruits, or distention. EXTREMITIES: No clubbing, cyanosis, or edema. No calf or thigh swelling or posterior tenderness bilater ally. No Homans sign or palpable cords bilaterally. No pedal lesions. LABORATORY DATA: Preoperative laboratories (11/2018), hemoglobin 11.2, hematocrit 35.3, MCV 91. BUN is 32, creatinine 1 .7, GFR 29.8. IMPRESSION: 1. Adult-onset diabetes mellitus (type 2), contr olled. 2. Atrial fibrillation. The patient is currently in a regular cardiac rhythm. 3. Hypertension. Blood pressure is well controll ed at the present time. 4. Obstructive sleep apnea. The patient has her CPAP machine available for use in the hospital. 5. Asthma, asymptomatic. 6. Chronic kidney disease stage III. 7. Hypothyroidism. 8. Sick sinus syndrome. The patient is status po st pacemaker placement. 9. Gout, asymptomatic. 10. Iron deficiency anemia. 11. Hemorrhoids. 12. Status post removal of infected left total knee arthroplasty hardware with placement of antibiotic spacer. The patient is c urrently stable. PLAN: 1. An 1800-calorie ADA, low-salt, low-fat diet. 2. Sequential compression devices to both feet. 3. Tomorrow morning, restart Eliquis 5 mg b.i.d. 4. Continue physical therapy in a.m. 5. Check H and H and chem-6 in a.m. 6. Q.a.c. and at bedtime Accu-Cheks. 7. Humalog moderate dose regimen sliding scale. 8. Hold metformin if the patient's GFR is less t singletary 30 tomorrow morning. 9. Hold diltiazem CD for systolic blood pressure less than 105 or heart rate PATIENT NAME: CARL CALDERON less than 50. 10. Hold metoprolol succinat e if systolic blood pressure less than 105 or heart rate less than 50. 11. Hold flecainide for heart rate less than 50. 12. Hold irbesartan and furosemide if systolic b lood pressure less than 120. 13. Albuterol unit dose via nebulizer q. 4 hours p.r.n. shortness of breath/wheezing. Thank very much for this consultation. I will fo llow patient with you during her hospitalization. Dictated By: Naman Bowden MD WT: CON:YSAIRA/BIN/NTS Conf#: [id number]/DID#: [id number] Authenticated by Naman Bowden MD On 04/23/2019 08:24:11 AM Electronically Signed by Naman Bowden MD on at 0824 PATIENT NAME: CARL CALDERON 2019-04-19 18:07:00-00:00 [facility] Internal Medicine Prog. Note REPORT#:[id number] REPORT STATUS: Signed DATE:04/19/19 TIME: 1806 PATIENT: CARL CALDERON UNIT #: [id number] [facility] AGE: 68 SEX: F ATTEND: Rico Morrissey MD ADM AUTHOR: Naman Bowden MD * ALL edits or amendments must be made on the el [employer]computer document * Subjective Comments: Consult Note Dictated Objective General VS/I O: Vital Signs Date Temp Pulse Resp B/P B/P Mean Pulse Ox FiO2 04/19 97.5-98.1 60-80 15-20 135-181/65-79 95.6 95-100 32 Last Documented: Result Date Time O2 Delivery CPAP 04/19 1531 B/P 135/76 04/19 1458 B/P Mean 95.6 04/19 1458 Temp 97.5 04/19 1458 Pulse 80 04/19 1458 Resp 17 04/19 1458 Pulse Ox 98 04/19 1438 FiO2 32 04/19 1438 O2 Flow Rate 3.252033 04/19 1438 Patient Weight Weight (lb): 217 Weight (oz): 2.49 Weight (kg): 98.43 Physical Exam General appearance: alert, awake, no acute distr ess Diagnosis, Assessment Plan Problem List/A P: 1. Type 2 diabetes mellitus without complicatio ns 2. Essential (primary) hypertension 3. Atrial fibrillation 4. SSS (sick sinus syndrome) 5. SANDRA (obstructive sleep apnea) 6. Asthma 7. CKD (chronic kidney disease) stage 3, GFR 30 -59 ml/min 8. Infection of total left knee replacement Electronically Signed by Naman Bowden MD on 04/29 at 1951 RPT #:[id number] END OF REPORT 2019-04-19 16:21:00-00:00 [id number] [place] [address] PATIENT NAME: CARL CALDERON ADMIT DATE: 04/19/19 ACCOUNT NO: [id number] ROOM NO: [facility] AGE: 68 REPORT TYPE: OPERATIVE REPORT SEX: F ADMITTING PHYSICIAN:Kingsley Morrissey MD ATTENDING PHYSICIAN:Kingsley Morrissey MD OPERATION DATE: 04/19/2019 PREOPERATIVE DIAGNOSES: 1. 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 2. Cutaneous cicatrix, left knee. POSTOPERATIVE DIAGNOSES: 1. 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 2. Cutaneous cicatrix, left knee. PROCEDURES: 1. I and D with poly change, revision one compon ent, left knee. 2. Excision of cutaneous cicatrix left knee, 22 cm. SURGEON: Kingsley Morrissey MD WINDOW CUTTER: Silverio Mayer CST/NGHIA ANESTHESIA: General anesthesia. ESTIMATED BLOOD LOSS: 25 mL. DRAINS: None. SPECIMENS: Three sets of tissue for culture. COMPLICATIONS: None. INDICATIONS FOR SURGERY: Acute onset of left kne e pain while the patient was being treated for diverticulitis with previous s uccessful left knee arthroplasty. Elevated ESR and CRP. Knee aspirat ion demonstrated elevated WBC with 90% polys. Synovasure alpha defensi n analysis was positive. Cultures were negative. Treatment options were discussed with the patient and her . There was improvement in bola n with oral antibiotics that had been prescribed for diverticulitis. Due to the acute onset of pain a nd positive aspiration, inflammatory markers consistent with infection, decision was made to proceed with surgical irrigation and debridement, and po lyethylene change. Treatment options were discussed with the patient and her who voiced understanding of the options and the plann ed procedure. They voiced understanding of the risk of persistence, worsening or recurrence of infection, damage to nerves or blood vessels with loss of function, mechanical failur e or loosening with need for revision surgery, blood clot s possibly going to the lungs, possibly resulting in PATIENT NAME: CARL CALDERON . No warranty or guarantee as to the outcom e was made. FINDINGS: Components well fixed with min imal wear of the [id number] portion of the patellar implant in a transverse manner, consistent with impingement on the tibial component with a patella baja. Femora l and tibial components well positioned and well fixed and appropriately size d. No significant fluid upon entering the knee joint. No significant inflamma tion. PROCEDURE IN DETAIL: There w as a curved anterior medial 22 cm incision that was widened. Due to widening of the scar and concern for infection, decision was made to perform removal of the old scarred incis ion. After she was properly identified in the preoperative holding area and all her and her 's questions were answered and the surgical site wa s marked under her direction, she was taken to the operati ng room. Following establishment of anesthesia, the left leg was prepped and draped sterilely. Time- out was initiated by the surgeon and it was verified that all necessary e quipment and instruments were available and had been properly steriliz ed and all potentially needed implants were available. The old anterior medial incision was excised. Mid vastus approach was performed. Findings as described ab ove. Anterior synovectomy was performed. The tibial polyethylene insert was re moved without difficulty. There was no damage on the tibial insert. This w as an 8-mm thick insert for size 3 fixed-bearing DePuy PFC Sigma pos terior-stabilized implant. A posterior synovectomy was then performed. The knee was the n thoroughly irrigated, initially it was soaked with Betadine solution, then irrigated with 9 L of solution with bacitracin using pulsatile lavage. The tourniquet was released, hemostasis was obtained and a new tibial polyethylene insert was placed, size 3 x 8 mm thick posterior-stabilized. Capsule was r epaired using #1 PDS and #1 Quill. Subcutaneous tissues were meticulously cl osed in layers using monofilament suture. Skin was closed using stapl es. POSTOPERATIVE PLAN: Weightbearing as tolerated. Infectious disease consultation. Due to intraoperative appearance o f minimal inflammation and no significant fibrinous exudate, a short course of intravenous antibiotics followed by oral antibiotics is felt to be a jamila sonable and will be discussed with infectious disease consultants. Dictated By: Kingsley Morrissey MD WT: OP:LISE/HUSSEIN/MAHNAZ Conf#: [id number]/DID#: [id number] Authenticated by Kingsley Morrissey MD On 08:06:09 AM at 0806 PATIENT NAME: CARL CALDERON 2019-04-19 12:39:00-00:00 [facility] Brief Op Note REPORT#:[id number] REPORT STATUS: Signed DATE:04/19/19 TIME: 1239 PATIENT: CARL CALDERON UNIT #: [id number] ROOM/BED: [place] [address] : 49 AGE: 68 SEX: F ATTEND: Rico Morrissey MD ADM AUTHOR: Kingsley Morrissey MD * ALL edits or amendments must be made on the el [employer]/computer document * Op/Inv Proc Note - Brief Pre-procedure diagnosis: acute infection lt tka, cutaneous cicatrix lt kn ee Post-procedure diagnosis: same as pre procedure dx Procedures performed: i d, poly change lt knee, excision cutaneous cic atrix lt knee Primary Surgeon: shelby [employer] Calendar Control Clerk(s): destinee Anesthesia: general anesthesia Findings: minimal fluid or synovitis, implants stable Complications: none Estimated blood loss in ml's: 25cc Specimens removed/altered: tissue for cx x3 at 1242 [facility] #:[id number] END OF REPORT
[2023-02-03 23:53] LABS: Albumin 3.6 g/dL (3.4-5.0); Bilirubin Direct 0.4 mg/dL (0-0.2); Bilirubin Indirect, Calculated 0.2 mg/dL (0.2-0.8); Bilirubin Total 0.6 mg/dL (0.2-1.0); Magnesium 2.2 mg/dL (1.6-2.4); Potassium 3.3 mEq/L (3.5-5.1); Protein, Total 7.4 g/dL (6.4-8.2); Troponin High Sensitivity 13.1 pg/mL (<58.9)
[2023-02-03 23:57] LABS: Absolute Lymphocytes (CBC) 0.7 K/uL (0.7-4.9); Hematocrit 36.1 % (36.0-45.0); Lymphocytes % 11.8 % (15.3-44.8); MPV 7.9 fL (7.6-11.3)
[2023-02-04] MEDS ORDERED: MORPHINE 2 MG/ML SYR ONE ×2 (00:34→03:19)
[2023-02-04 00:35] LABS: Protime INR 1.32
[2023-02-04 01:46] LABS: Specific Gravity 1.015 (1.005-1.030); Urine Bacteria 20-50 /HPF (<20); Urine Bilirubin NEGATIVE (Negative); Urine Blood 1+ (Negative); Urine Clarity Extremely Turbid (Clear); Urine Color Yellow (Yellow); Urine Glucose NEGATIVE (Negative); Urine Mucus Slight /HPF (None Seen); Urine Protein TRACE (Negative); Urine Urobilinogen Normal (Normal)
--- NOTE | 2023-02-04 02:06 | ER ---
Nurse's Notes [facility] Name: Shelley Jolley Age: 72 yrs Sex: Female : 1950 Arrival Date: 02/03/2023 Time: 21:19 Bed 8 Private MD: Diagnosis: Hydronephrosis with renal and ureteral calculous obstruction-1 cm distal right;Fall on same level, unspecified;Obesity due to excess calories;Hypokalemia;Acute kidney failure, unspecified-on chronic;Other cirrhosis of liver;Other ascites Presentation: 02/03 22:56 Chief complaint: Patient states: bent over to picker object from floor fell over and kl hit top of head on bric fireplace negative LOC takes Eloquist. Coronavirus screen: Vaccine status: Patient reports receiving the 2nd dose of the covid vaccine. Ebola Screen: Patient negative for fever greater than or equal to 101.5 degrees Fahrenheit, and additional compatible Ebola Virus Disease symptoms. Initial Sepsis Screen: Does the patient meet any 2 criteria? No. Patient's initial sepsis screen is negative. Does the patient have a suspected source of infection? No. Patient's initial sepsis screen is negative. Risk Assessment: Do you want to hurt yourself or someone else? Patient reports no desire to harm self or others. 22:56 Method Of Arrival: Ambulatory kl 22:56 Acuity: KENNETH 3 kl Triage Assessment: 23:01 General: Appears uncomfortable, Behavior is calm, cooperative. Pain: Complains of pain kl in base of the skull, left side of the back of head and chest Pain currently is 6 out of 10 on a pain scale. at worst was 10 out of 10 on a pain scale. EENT: No deficits noted. Neuro: No deficits noted. Cardiovascular: No deficits noted. Respiratory: No deficits noted. GI: No deficits noted. GI: No signs and/or symptoms were reported involving the gastrointestinal system. : No deficits noted. No signs and/or symptoms were reported regarding the genitourinary system. Derm: No deficits noted. Historical: - Allergies: 22:59 Codeine; kl 22:59 Demerol; kl 22:59 Talwin (Anaphylaxis); kl 22:59 Xarelto; kl - PMHx: 22:59 Atrial Fib; Depression; Diabetes - NIDDM; Hypertension; Hypothyroidism; Reactive airway kl disease; - PSHx: 22:59 pacemaker; Cholecystectomy; knee replacement; hernia repair; kl - Immunization history:: Adult Immunizations not up to date. - Social history:: Smoking status: Patient denies any tobacco usage or history of. Screenin:23 [facility] ED Fall Risk Assessment (Adult) History of falling in the last 3 months, kl including since admission Yes- single mechanical fall (1 pt) Confusion or Disorientation No (0 pts) Intoxicated or Sedated No (0 pts) Impaired Gait Yes (1 pt) Mobility Assist Device Used No (0 pt) Altered Elimination No (0 pt) Score/Fall Risk Level 0 - 2 = Low Risk Oriented to surroundings, Maintained a safe environment. Abuse screen: Denies threats or abuse. Nutritional screening: No deficits noted. Tuberculosis screening: No symptoms or risk factors identified. Assessment: 23:23 Reassessment: Patient appears in no apparent distress at this time. Patient and/or kl family updated on plan of care and expected duration. Pain level reassessed. Patient is alert, oriented x 3, equal unlabored respirations, skin warm/dry/pink. 02/04 00:47 Reassessment: Patient appears in no apparent distress at this time. Patient and/or kl family updated on plan of care and expected duration. Pain level reassessed. Patient states feeling better. Patient states symptoms have improved. Vital Signs: 02/03 22:56 BP 139 / 71; Pulse 82; Resp 20; Temp 98(O); Pulse Ox 96% on R/A; Weight 99.79 kg; Height 5 ft. 2 in. ; Pain 6/10; 23:24 BP 140 / 69; Pulse Ox 94% on R/A; kl 02/04 00:47 BP 146 / 68; Pulse 67; Resp 20; Pulse Ox 96% on R/A; kl 03:26 BP 138 / 70; Pulse 82; Resp 20; Pulse Ox 96% on R/A; kl 04:39 Pulse 78; Resp 20; Temp 97.8(O); Pulse Ox 99% ; kl 02/03 22:56 Body Mass Index 40.24 (99.79 kg, 157.48 cm) 02/03 22:56 Pain Scale: Adult Bovey Coma Score: 01:09 Eye Response: spontaneous(4). Motor Response: obeys commands(6). Verbal Response: becca oriented(5). Total: 15. ED Course: 02/03 21:23 Patient arrived in ED. ja2 21:50 Hung Sweet MD is Attending Physician. becca 22:46 Head C Spine Cap Wo Con In Process Unspecified. EDMS 22:50 XRAY Chest (1 view) In Process Unspecified. EDMS 22:59 Triage completed. kl 23:22 Inserted saline lock: 22 gauge in right upper arm, using aseptic technique. ,using kl aseptic technique. diffusic Blood collected. 23:24 Patient has correct armband on for positive identification. Placed in gown. Bed in low kl position. Call light in reach. Side rails up X2. Adult w/ patient. Pulse ox on. NIBP on. 23:25 Basic Metabolic Panel Sent. kl 23:25 CBC with Diff Sent. kl 23:25 LFT's Sent. kl 23:25 Magnesium Sent. kl 23:25 NT PRO-BNP Sent. kl 23:26 PT-INR Sent. kl 23:26 Troponin HS Sent. 02/04 00:28 AMMONIA Sent. kl Administered Medications: 02/03 23:50 Drug: NS 0.9% IV 1000 ml Route: IV; Rate: 125 ml/hr; Site: right upper arm; 02/04 03:27 Follow up: IV Status: Order to discontinue infusion; IV Intake: 250ml kl 00:28 Drug: morphine IVP or IV 2 mg Route: IVP; Infused Over: 4 mins; Site: right upper arm; kl 00:47 Follow up: Response: No adverse reaction; Marked relief of symptoms kl 02:15 Not Given (Duplicate Order): Cefdinir PO 300 mg PO once becca 02:29 Drug: Rocephin IV 1 grams Route: IV; Rate: per protocol; Site: right upper arm; kl 03:27 Follow up: Response: No adverse reaction kl 02:30 Drug: Flomax PO 0.4 mg Route: PO; kl 03:28 Follow up: Response: No adverse reaction kl 02:30 Drug: Potassium PO Effervescent Tablet 25 mEq Route: PO; kl 03:28 Follow up: Response: No adverse reaction kl 03:14 Drug: morphine IVP or IV 2 mg Route: IVP; Infused Over: 4 mins; Site: right upper arm; kl 03:29 Follow up: Response: No adverse reaction; Marked relief of symptoms 03:15 Drug: levofloxacin IVPB 500 mg Volume: 100 ml; Route: IVPB; Infused Over: 60 mins; kl Site: right upper arm; 04:25 Follow up: IV Status: Completed infusion; IV Intake: 100ml kl Intake: 03:27 IV: 250ml; Total: 250ml. kl 04:25 IV: 100ml; Total: 350ml. kl Outcome: 02:05 ER care complete, transfer ordered by MD. hudson 04:39 Transferred by private ambulance to [facility], Note: [facility] 04:39 Condition: improved 04:39 Discharge instructions given to patient, family, Instructed on the need for transfer, Demonstrated understanding of instructions. 04:48 Patient left the ED. Signatures: Dispatcher [employer] Frieda Singh, Hung Rivera RN, MD MD cha Alexander, Jessica ja2
--- NOTE | 2023-02-04 02:06 | EDPHYS ---
Physician Documentation [facility] Name: Shelley Jolley Age: 72 yrs Sex: Female : 1950 Arrival Date: 02/03/2023 Time: 21:19 Bed 8 Private MD: ED Physician Hung Sweet HPI: 02/04 01:08 This 72 yrs old Female presents to ER via Ambulatory with complaints of Fall becca Injury. 01:08 Details of fall: The patient fell from an upright position. Onset: The symptoms/episode becca began/occurred just prior to arrival. Associated injuries: The patient sustained injury to the head, neck injury, upper back injury, injury to the low back. Severity of symptoms: At their worst the symptoms were mild, in the emergency department the symptoms are unchanged. The patient has not experienced similar symptoms in the past. Historical: - Allergies: 02/03 22:59 Codeine; kl 22:59 Demerol; kl 22:59 Talwin (Anaphylaxis); kl 22:59 Xarelto; kl - PMHx: 22:59 Atrial Fib; Depression; Diabetes - NIDDM; Hypertension; Hypothyroidism; Reactive airway kl disease; - PSHx: 22:59 pacemaker; Cholecystectomy; knee replacement; hernia repair; kl - Immunization history:: Adult Immunizations not up to date. - Social history:: Smoking status: Patient denies any tobacco usage or history of. ROS: 02/04 01:09 Constitutional: Negative for fever, chills, and weight loss, Eyes: Negative for injury, becca pain, redness, and discharge, ENT: Negative for injury, pain, and discharge, Neck: Negative for injury, pain, and swelling, Cardiovascular: Negative for chest pain, palpitations, and edema, Respiratory: Negative for shortness of breath, cough, wheezing, and pleuritic chest pain, Abdomen/GI: Negative for abdominal pain, nausea, vomiting, diarrhea, and constipation, Back: Negative for injury and pain, : Negative for injury, bleeding, discharge, and swelling, MS/Extremity: Negative for injury and deformity, Skin: Negative for injury, rash, and discoloration, Psych: Negative for depression, anxiety, suicide ideation, homicidal ideation, and hallucinations, Allergy/Immunology: Negative for hives, rash, and allergies, Endocrine: Negative for neck swelling, polydipsia, polyuria, polyphagia, and marked weight changes, Hematologic/Lymphatic: Negative for swollen nodes, abnormal bleeding, and unusual bruising. Neuro: Positive for headache. Exam: 01:09 Constitutional: This is a well developed, well nourished patient who is awake, alert, becca and in no acute distress. Head/Face: Normocephalic, atraumatic. Eyes: Pupils equal round and reactive to light, extra-ocular motions intact. Lids and lashes normal. Conjunctiva and sclera are non-icteric and not injected. Cornea within normal limits. Periorbital areas with no swelling, redness, or edema. ENT: Nares patent. No nasal discharge, no septal abnormalities noted. Tympanic membranes are normal and external auditory canals are clear. Oropharynx with no redness, swelling, or masses, exudates, or evidence of obstruction, uvula midline. Mucous membranes moist. Neck: Trachea midline, no thyromegaly or masses palpated, and no cervical lymphadenopathy. Supple, full range of motion without nuchal rigidity, or vertebral point tenderness. No Meningismus. Chest/axilla: Normal chest wall appearance and motion. Nontender with no deformity. No lesions are appreciated. Cardiovascular: Regular rate and rhythm with a normal S1 and S2. No gallops, murmurs, or rubs. Normal PMI, no JVD. No pulse deficits. Respiratory: Lungs have equal breath sounds bilaterally, clear to auscultation and percussion. No rales, rhonchi or wheezes noted. No increased work of breathing, no retractions or nasal flaring. Abdomen/GI: Soft, non-tender, with normal bowel sounds. No distension or tympany. No guarding or rebound. No evidence of tenderness throughout. Back: No spinal tenderness. No costovertebral tenderness. Full range of motion. Female : Normal external genitalia. Skin: Warm, dry with normal turgor. Normal color with no rashes, no lesions, and no evidence of cellulitis. MS/ Extremity: Pulses equal, no cyanosis. Neurovascular intact. Full, normal range of motion. Neuro: Awake and alert, GCS 15, oriented to person, place, time, and situation. Cranial nerves II-XII grossly intact. Motor strength 5/5 in all extremities. Sensory grossly intact. Cerebellar exam normal. Normal gait. Psych: Awake, alert, with orientation to person, place and time. Behavior, mood, and affect are within normal limits. 01:09 ECG was reviewed by the Attending Physician. Vital Signs: 02/03 22:56 BP 139 / 71; Pulse 82; Resp 20; Temp 98(O); Pulse Ox 96% on R/A; Weight 99.79 kg; kl Height 5 ft. 2 in. ; Pain 6/10; 23:24 BP 140 / 69; Pulse Ox 94% on R/A; 02/04 00:47 BP 146 / 68; Pulse 67; Resp 20; Pulse Ox 96% on R/A; kl 03:26 BP 138 / 70; Pulse 82; Resp 20; Pulse Ox 96% on R/A; 04:39 Pulse 78; Resp 20; Temp 97.8(O); Pulse Ox 99% ; 02/03 22:56 Body Mass Index 40.24 (99.79 kg, 157.48 cm) 02/03 22:56 Pain Scale: Adult Judi Coma Score: 01:09 Eye Response: spontaneous(4). Motor Response: obeys commands(6). Verbal Response: becca oriented(5). Total: 15. MDM: 02/03 21:50 Patient medically screened. [facility] 02/04 02:54 Differential diagnosis: closed head injury, contusion, fracture, laceration, multiple becca trauma, sprain, strain. Differential diagnosis: appendicitis, bowel obstruction, coronary artery disease, Cholelithiasis, diverticulitis, gastritis, Hepatitis, Irritable bowel syndrome, Mesenteric ischemia or infarction, non-specific abd pain, pancreatitis, Peptic Ulcer Disease, Pyelonephritis, Ureterolithiasis, urinary tract infection. Data reviewed: vital signs, nurses notes, lab test result(s), EKG, radiologic studies, CT scan, plain films. Consideration of Admission/Observation Escalation of care including admission/observation considered. I considered the following discharge prescriptions or medication management in the emergency department Medications were administered in the Emergency Department. See MAR. Test considered but Not performed: Ultrasound NO ABD USG. Care significantly affected by the following chronic conditions: Diabetes, Hypertension, Obesity, RENAL FAILURE , A FIB. 02/03 22:24 Order name: Basic Metabolic Panel; Complete Time: 23:56 [facility] 02/03 22:24 Order name: CBC with Diff; Complete Time: 01:05 [facility] 02/03 22:24 Order name: LFT's; Complete Time: 23:56 [facility] 02/03 22:24 Order name: Magnesium; Complete Time: 23:56 [facility] 02/03 22:24 Order name: NT PRO-BNP; Complete Time: 23:56 [facility] 02/03 22:24 Order name: PT-INR; Complete Time: 01:05 [facility] 02/03 22:24 Order name: Troponin HS; Complete Time: 23:56 [facility] 02/03 22:24 Order name: Lipase; Complete Time: 23:56 [facility] 02/03 22:24 Order name: Urinalysis w/ reflexes; Complete Time: 01:57 [facility] 02/03 23:55 Order name: AMMONIA; Complete Time: 01:05 [facility] 02/04 01:50 Order name: Urine Culture [facility] 02/03 22:24 Order name: XRAY Chest (1 view) [facility] 02/03 22:28 Order name: Head C Spine Cap Wo Con [facility] 02/03 22:24 Order name: EKG; Complete Time: 22:25 [facility] 02/03 22:24 Order name: Cardiac monitoring [facility] 02/03 22:24 Order name: EKG - Nurse/Tech [facility] 02/03 22:24 Order name: IV Saline Lock; Complete Time: 23:25 [facility] 02/03 22:24 Order name: Labs collected and sent; Complete Time: 23:25 [facility] 02/03 22:24 Order name: O2 Per Protocol; Complete Time: 23:25 [facility] 02/03 22:24 Order name: O2 Sat Monitoring; Complete Time: 23:25 [facility] EC:09 Rate is 64 beats/min. Rhythm is regular. QRS [place] is Normal. HI interval is normal. QRS becca interval is normal. QT interval is normal. No Q waves. T waves are Normal. No ST changes noted. Clinical impression: Abnormal EKG without significant change. Interpreted by me. Reviewed by me. Administered Medications: 02/03 23:50 Drug: NS 0.9% IV 1000 ml Route: IV; Rate: 125 ml/hr; Site: right upper arm; 02/04 03:27 Follow up: IV Status: Order to discontinue infusion; IV Intake: 250ml 00:28 Drug: morphine IVP or IV 2 mg Route: IVP; Infused Over: 4 mins; Site: right upper arm; kl 00:47 Follow up: Response: No adverse reaction; Marked relief of symptoms kl 02:15 Not Given (Duplicate Order): Cefdinir PO 300 mg PO once becca 02:29 Drug: Rocephin IV 1 grams Route: IV; Rate: per protocol; Site: right upper arm; kl 03:27 Follow up: Response: No adverse reaction kl 02:30 Drug: Flomax PO 0.4 mg Route: PO; kl 03:28 Follow up: Response: No adverse reaction kl 02:30 Drug: Potassium PO Effervescent Tablet 25 mEq Route: PO; kl 03:28 Follow up: Response: No adverse reaction kl 03:14 Drug: morphine IVP or IV 2 mg Route: IVP; Infused Over: 4 mins; Site: right upper arm; kl 03:29 Follow up: Response: No adverse reaction; Marked relief of symptoms kl 03:15 Drug: levofloxacin IVPB 500 mg Volume: 100 ml; Route: IVPB; Infused Over: 60 mins; kl Site: right upper arm; 04:25 Follow up: IV Status: Completed infusion; IV Intake: 100ml kl Disposition Summary: 02/04/23 02:05 Transfer Ordered Transfer Location: [facility] becca Reason: Higher level of care becca Condition: Fair becca Problem: new becca Symptoms: have improved becca Accepting Physician: to [facility] tele(02/04/23 04:48) kl Diagnosis - Hydronephrosis with renal and ureteral calculous obstruction - 1 cm distal right becca - Fall on same level, unspecified becca - Obesity due to excess calories becca - Hypokalemia becca - Acute kidney failure, unspecified - on chronic becca - Other cirrhosis of liver becca - Other ascites becca Discharge Instructions: - Discharge Summary Sheet becca - Atrial Fibrillation becca - Potassium Content of Foods becca - Kidney Stones becca - Kidney Stones, [id number] becca - Hydronephrosis becca - Dietary Guidelines to Help Prevent Kidney Stones becca - Atrial Fibrillation, [id number] becca - Hypokalemia becca Forms: - Medication Reconciliation Form becca - SBAR form becca Prescriptions: - Flomax 0.4 mg Oral capsule - take 1 capsule by ORAL route every 24 hours; 14 capsule; Refills: 0, Product becca Selection Permitted - cefdinir 300 mg Oral capsule - take 1 capsule by ORAL route 2 times per day; 14 capsule; Refills: 0, Product becca Selection Permitted - Zofran 4 mg Oral Tablet - take 1 tablet by ORAL route every 12 hours As needed; 20 tablet; Refills: 0, becca Product Selection Permitted Signatures: Dispatcher [employer] Frieda Singh RN RN kl Anderson, Corey, MD MD cha Corrections: (The following items were deleted from the chart) 02/03 22:27 21:52 Head C Spine MPR Wo Con+CT.RAD.BRZ ordered. [facility] 02/04 02:06 02:05 to [facility] becca [place]udson 04:48 02:06 to [facility] waqar
[2023-02-04] MEDS ORDERED: CEFDINIR 300 MG CAP PO ONE (02:21)
[2023-02-04] MEDS ORDERED: POTASSIUM 25 MEQ EFFERV TAB ONE (02:22)
[2023-02-04] MEDS ORDERED: CEFTRIAXONE 1000 MG/VIAL ONE (02:22)
[2023-02-04] MEDS ORDERED: TAMSULOSIN 0.4 MG SR CAP ONE (02:22)
[2023-02-04] MEDS ORDERED: Levofloxacin500mg IV 500 MG/100 ML BAG IV ONE (03:07)
[2023-02-04 05:16] VITALS: BP 138/70
[2023-02-04 05:17] VITALS: TEMP 97.8; O2SAT 99
--- NOTE | 2023-02-04 18:21 | RAD REPORT ---
EXAM DESCRIPTION: CT Head and Cervical Spine Without Intravenous Contrast CLINICAL HISTORY: The patient is 72 years old and is Female; PAIN TECHNIQUE: Axial computed tomography images of the head/brain and cervical spine without intravenous contrast. Sagittal and coronal reformatted images were created and reviewed. This CT exam was pe rformed using one or more of the following dose reduction techniques: automated exposure control, a djustment of the mA and/or kV according to patient size, and/or use of iterative reconstruction techn ique. COMPARISON: No relevant prior studies available. FINDINGS: BRAIN: Unremarkable. No hemorrhage. No significant white matter disease. No edema. VENTRICLES: Unremarkable. No ventriculomegaly. SKULL: No acute fracture. SINUSES: Unremarkable as visualized. No acute sinusitis. MASTOID AIR CELLS: Unremarkable as visualized. No mastoid effusion. VERTEBRAE: See below. DISCS/SPINAL CANAL/NEURAL FORAMINA: Minimal intervertebral disc space narrowing with anterior ost eophyte formation is present most prominent at C5-C6 and C6-C7. Minimal facet arthropathy of the uppe r cervical spine is noted. SOFT TISSUES: The soft tissues are normal. LUNG APICES: Unremarkable as visualized. IMPRESSION: 1. No acute intracranial findings. 2. Mild spondylosis of the cervical spine without acute findings. EXAM DESCRIPTION: CT Chest, Abdomen and Pelvis Without Intravenous Contrast CLINICAL HISTORY: The patient is 72 years old and is Female; PAIN TECHNIQUE: Axial computed tomography images of the chest, abdomen and pelvis without intravenous con trast. Sagittal and coronal reformatted images were created and reviewed. This CT exam was perfor med using one or more of the following dose reduction techniques: automated exposure control, adjus tment of the mA and/or kV according to patient size, and/or use of iterative reconstruction technique . COMPARISON: No relevant prior studies available. FINDINGS: CHEST: LUNGS: The lungs are clear of focal opacity, mass, or consolidation. PLEURAL SPACE: Unremarkable. No significant effusion. No pneumothorax. HEART: The heart is enlarged. There is no pericardial effusion. ABDOMEN: LIVER: The liver demonstrates a slightly nodular contour. GALLBLADDER AND BILE DUCTS: Surgical clips are present in the right upper quadrant, consistent wi th previous cholecystectomy. PANCREAS: Fatty infiltration of the pancreas is present. No ductal dilation. SPLEEN: The spleen is enlarged. ADRENALS: Unremarkable. No mass. KIDNEYS AND URETERS: Edema of the right kidney with moderate right hydroureteronephrosis is prese nt secondary to a 1 cm distal right ureteral calculus. The left kidney is unremarkable without hydr onephrosis or hydroureter. STOMACH AND BOWEL: Postsurgical changes the level of the GE junction is noted. Stomach is decom pressed. The small bowel is relatively normal in caliber. Stool is present throughout colon. There is no mucosal thickening or evidence of obstruction. A few scattered colonic diverticula are noted wi thout surrounding inflammation. PELVIS: APPENDIX: No findings to suggest acute appendicitis. BLADDER: The bladder is moderately distended. No stones. REPRODUCTIVE: Unremarkable as visualized. CHEST, ABDOMEN and PELVIS: INTRAPERITONEAL SPACE: Small volume ascites is present throughout the abdomen and pelvis. No fr ee air. BONES/JOINTS: There is no acute fracture of the visualized axial and appendicular skeleton. The v ertebral body heights and alignment are maintained. Multilevel degenerative change of the spine is pr esent. SOFT TISSUES: The soft tissues are normal. VASCULATURE: Unremarkable. No aortic aneurysm. LYMPH NODES: Unremarkable. No enlarged lymph nodes. TUBES, LINES AND DEVICES: A left-sided pacemaker is noted with the leads in the right atrial appe ndage and right ventricle. IMPRESSION: 1. No evidence of solid organ injury or traumatic bony findings on this noncontrasted CT of the chest, abdomen, and pelvis. 2. Edema of the right kidney with moderate right hydroureteronephrosis is present secondary to a 1 cm distal right ureteral calculus. 3. Cirrhotic liver, splenomegaly, and ascites. Electronically signed by: Jolene Ruano MD 02/03/2023 11:43 PM CDT Due to temporary technical issues with the PACS/Fluency reporting system, reports are being signed by the in house radiologists without review as a courtesy to insure prompt reporting. The interpreting radiologist is fully responsible for the content of the report.
--- NOTE | 2023-02-04 18:31 | RAD REPORT ---
EXAM DESCRIPTION: XR Chest, 1 View CLINICAL HISTORY: The patient is 72 years old and is Female; DYSPNEA TECHNIQUE: Frontal view of the chest. COMPARISON: No relevant prior studies available. FINDINGS: LUNGS: Unremarkable. No consolidation. PLEURAL SPACE: Unremarkable. No pneumothorax. HEART: The cardiac silhouette is enlarged. MEDIASTINUM: Unremarkable. BONES/JOINTS: Multilevel degenerative change of the spine is present. VASCULATURE: Prominence of central vasculature is present. TUBES, LINES AND DEVICES: Left-sided pacemaker is noted. UPPER ABDOMEN: Unremarkable as visualized. IMPRESSION: Findings suggest mild vascular congestion. Electronically signed by: Jolene Ruano MD 02/03/2023 11:35 PM CDT Due to temporary technical issues with the PACS/Fluency reporting system, reports are being signed by the in house radiologists without review as a courtesy to insure prompt reporting. The interpreting radiologist is fully responsible for the content of the report.
--- NOTE | 2023-02-04 20:37 | EKG ---
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
== END 2023-02-04 04:48 | disposition short-term general hospital (02) ==
LOC: ER 21:19
DX: N13.2 Hydronephrosis with renal and ureteral calculous obstruction (principal); E87.6 Hypokalemia; N17.9 Acute kidney failure, unspecified; K74.69 Other cirrhosis of liver; R18.8 Other ascites; E66.01 Morbid (severe) obesity due to excess calories; Z68.41 Body mass index [BMI] 40.0-44.9, adult; W18.30XA Fall on same level, unspecified, initial encounter; E11.9 Type 2 diabetes mellitus without complications; I10 Essential (primary) hypertension; Z88.5 Allergy status to narcotic agent; Z88.8 Allergy status to other drugs, medicaments and biological substances; Z95.0 Presence of cardiac pacemaker
CPT/HCPCS: 36415; 70450; 71045; 71250; 72125; 80048; 80076; 81001; 82140; 83690; 83735; 83880; 84484; 85025; 85610; 87086; 87088; 93005; J0696; J2270